=== PATIENT | female | born 1945 | race Asian ===

== ENCOUNTER 2017-07-13 15:19 | Inpatient (IN) | payer OTHER ==
[~2017-07-13] VITALS: Ht 154.9 cm; Wt 58.2 kg
[2017-07-13 17:38] LABS: BASOPHILS % 0.5 % (0.0-2.0); EOSINOPHILS # 0.2 10^3/ul (0.0-0.5); EOSINOPHILS % 2.2 % (0.0-7.0); HEMATOCRIT 41.2 % (37.0-47.0); HEMOGLOBIN 13.7 g/dl (12.0-16.0); LYMPHOCYTES # 3.8 10^3/ul (0.8-2.9); LYMPHOCYTES % 45.1 % (15.0-51.0); MEAN CORPUSCULAR HEMOGLOBIN 29.7 pg (29.0-33.0); MEAN CORPUSCULAR HGB CONC 33.3 g/dl (32.0-37.0); MEAN CORPUSCULAR VOLUME 89.4 fl (82.0-101.0); MEAN PLATELET VOLUME 9.8 fl (7.4-10.4); MONOCYTE # 0.6 10^3/ul (0.3-0.9); MONOCYTES % 6.7 % (0.0-11.0); NEUTROPHIL # 3.8 10^3/ul (1.6-7.5); NEUTROPHILS % 45.3 % (39.0-77.0); PLATELET COUNT 219 10^3/UL (140-415); RED BLOOD COUNT 4.61 10^6/ul (4.20-5.40); WHITE BLOOD COUNT 8.3 10^3/ul (4.8-10.8)
[2017-07-13 17:55] LABS: ANION GAP 12 (8-16); BLOOD UREA NITROGEN 7 mg/dl (7-20); CALCIUM 9.4 mg/dl (8.4-10.2); CARBON DIOXIDE 27 mmol/L (21-31); CHLORIDE 107 mmol/L (97-110); CREATININE 0.62 mg/dl (0.44-1.00); GLUCOSE 140 mg/dl (70-220); POTASSIUM 3.8 mmol/L (3.5-5.1); SODIUM 142 mmol/L (135-144)
[2017-07-13 18:04] LABS: B-TYPE NATRIURETIC PEPTIDE 78 PG/ML (0-125)
[2017-07-13] MEDS ORDERED: HYDR-902 PO (18:07)
[2017-07-13] MEDS ORDERED: LEVO50TA74 PO (18:07)
[2017-07-13 18:09] LABS: TROPONIN-I < 0.012 ng/ml (0.00-0.12)
[2017-07-13] MEDS ORDERED: ANAS1TAB PO (18:09)
[2017-07-13] MEDS ORDERED: DIPH1TAB25 PO (18:09)
[2017-07-13] MEDS ORDERED: IOHEXOL 300MG/ML 150 ML BTL ONE (18:10)
[2017-07-13] MEDS ORDERED: SOD CHLORIDE 0.9% 100 ML ONE (18:10)
--- NOTE | 2017-07-13 18:13 | RADRPT ---
PROCEDURE: XR Chest. CLINICAL INDICATION: Chest pain. TECHNIQUE: Portable AP semi - erect view of the chest was obtained. COMPARISON: None. FINDINGS: The cardiomediastinal silhouette is mildly enlarged . Blunting of the right greater than left costo phrenic angles are compatible with bilateral pleural effusions. Diffuse pulmonary vascular congesti on is concerning for congestive heart failure. Diffuse decreased mineralization cannot exclude oste openia or osteoporosis. Mild multilevel anterior spondylosis is present. Left axillary clips are pre sent. Calcification is visible within the aorta. RPTAT:HJJR IMPRESSION: 1. Combination of findings concerning for cardiac decompensation, congestive heart failure, with rig ht larger than left pleural effusions. 2. Aortic atherosclerosis is present. Physician Veto Date Time Electronically viewed and signed by Physician Veto on 07/13/2017 18:13 JR/
[2017-07-13 18:40] VITALS: TEMP 98.2
--- NOTE | 2017-07-13 20:03 | RADRPT ---
PROCEDURE: CT Chest with contrast. CLINICAL INDICATION: Increased exertional dyspnea, cancer. TECHNIQUE: A CT scan of the chest with contrast was performed. Coronal and sagittal reformatted im ages were obtained from the axial source images. 100 cc Omnipaque 300 were administered during exami nation without complication. CTDIvol: 7.93 mGy. DLP: 272.25 mGy-cm. One or more of the following dose reduction techniques were used: - Automated exposure control. - Adjustment of the mA and/or kV according to patient size. - Use of iterative reconstruction technique. COMPARISON: Chest x-ray dated 07/13/2017. FINDINGS: There is no suspicious thyroid lesion. There are a few mildly prominent anterior and middle mediasti nal lymph nodes. A partially calcified right paratracheal lymph node is also noted. The trachea and mainstem bronchi are patent. The heart is not enlarged. There is no pericardial effusion. The main pulmonary artery is mildly enlarged (3.4 cm). There are moderate right and small left pleural effusions. Patchy ground-glass opacification of the lungs is noted. There is smooth interlobular septal thickening in the lung apices and bases. There i s volume loss and patchy consolidation of the right lower lobe. Limited evaluation of the upper abdomen is unremarkable. There is no suspicious osseous lesion. IMPRESSION: 1. Moderate and small left pleural effusions. 2. Patchy ground-glass opacification of the lungs, possibly representing pulmonary edema, a viral c hest infection, or possibly pulmonary lymphoma. 3. Smooth interlobular septal thickening lung apices and bases, possibly representing pulmonary andree ma or lymphangitic spread of neoplasm. 4. Volume loss and consolidation in the right lower lobe, possibly representing atelectasis, pneumo vivien, and/or neoplasm. 5. A few mildly prominent anterior and middle mediastinal lymph nodes, nonspecific. 6. Mildly enlarged main pulmonary artery, raising the possibility of pulmonary hypertension. RPTAT: HTAR .Ras Jaffe MD, MD Date Time Electronically viewed and signed by .Ras Jaffe MD, on 07/13/2017 20:03 .R/
[2017-07-13] MEDS ORDERED: morphine 4 MG/ML VIAL IV STA (20:31)
[2017-07-13] MEDS: HYDROCODONE/APAP (7.5/325) TAB PO ONE ×2 (20:38→20:54)
[2017-07-13] MEDS ORDERED: ONDANSETRON 4 MG INJ IV PRN ×2 (21:00→22:30)
[2017-07-13] MEDS ORDERED: ACETAMINOPHEN 325 MG TAB PO PRN ×2 (21:00→22:30)
--- NOTE | 2017-07-13 21:33 | ERD ---
ER Documentation Chief Complaint Chief Complaint sob & R back/rib pain @ [facility] for 3 days 2 wks ago for thoracentesis HPI 71-year-old female presents with increasing exertional dyspnea to where she can only take a few steps without getting very short of breath as well as right back pain where she had a thoracentesis 2 weeks ago. She also has shortness of breath at rest but is not near as bad as when she tries to ambulate. She denies chest pain. She has a history of cancer. Seen in by her oncologist for possible acute worsening of her cancer requiring immediate chemotherapy. I called and spoke with the oncologist, Dr. Koch. She states that the patient' s progression of symptoms and the findings she had 2 weeks ago she believes that there may be lymph exogenous spread of cancer in the lungs in which case the patient would require immediate chemotherapy in order to stop the progression of the disease. She would like the patient admitted to the hospital and she would like to be on consult see the patient first thing in the morning ROS All systems reviewed and are negative except as per history of present illness. Medications Home Meds Reported Medications Anastrozole* (Arimidex*) 1 Mg Tablet, 1 MG PO DAILY, #30 TAB 07/13/17 Diphenoxylate HCl/Atropine (Diphenoxylate-Atrop 2.5-0.025) 1 Each Tablet, 1 EACH PO TID, TAB 07/13/17 Levothyroxine Sodium* (Levothyroxine Sodium*) 50 Mcg Tablet, 50 MCG PO BEFORE BREAKFAST, #30 TAB 07/13/17 Hydrocodone/Acetaminophen ([place] 10-325 Tablet) 1 Each Tablet, 1 EACH PO TID, TAB 07/13/17 Discontinued Reported Medications [None] No Conflict Check 07/24/12 Allergies Allergies: Coded Allergies: No Known Drug Allergies (Verified Allergy, Unknown, 07/13/17) PMhx/Soc History of Surgery: No Anesthesia Reaction: No Hx Neurological Disorder: No Hx Respiratory Disorders: No Hx Cardiac Disorders: No Hx Psychiatric Problems: No Hx Miscellaneous Medical Probl: No Hx Alcohol Use: No Hx Substance Use: No Hx Tobacco Use: No Smoking Status: Never smoker Physical Exam Vitals Vital Signs Date Time Temp Pulse Resp B/P Pulse Ox O2 Delivery O2 Flow Rate FiO2 07/13/17 18:40 98.2 73 21 127/94 95 Room Air 07/13/17 17:29 Nasal Cannula 2 07/13/17 15:21 98.2 80 20 156/72 94 Physical Exam Const: [] No distress, appears uncomfortable Head: Atraumatic Eyes: Normal Conjunctiva ENT: Normal External Ears, Nose and Mouth. Neck: Full range of motion..~ No meningismus. Resp: Decreased bibasilar breath sounds with markedly decreased breath sounds in the bottom right half of the lung. I hear no rales or wheezing. Cardio: Regular rate and rhythm, no murmurs Abd: Soft, non tender, non distended. Normal bowel sounds Skin: No petechiae or rashes Back: No midline tenderness, right flank tenderness diffusely. No surrounding erythema to possible puncture wound site from thoracentesis. Ext: No cyanosis, pulses intact all 4 extreme Neur: Awake and alert and oriented 3, no focal deficits Psych: Appears somewhat anxious. Result Diagram: 07/13/17 1728 07/13/17 1728 Results 24 hrs Laboratory Tests Test 07/13/17 17:28 White Blood Count 8.310^3/ul Red Blood Count 4.6110^6/ul Hemoglobin 13.7g/dl Hematocrit 41.2% Mean Corpuscular Volume 89.4fl Mean Corpuscular Hemoglobin 29.7pg Mean Corpuscular Hemoglobin Concent 33.3g/dl Red Cell Distribution Width 13.0% Platelet Count 31489^3/UL Mean Platelet Volume 9.8fl Neutrophils % 45.3% Lymphocytes % 45.1% Monocytes % 6.7% Eosinophils % 2.2% Basophils % 0.5% Nucleated Red Blood Cells % 0.0/100WBC Neutrophils # 3.810^3/ul Lymphocytes # 3.810^3/ul Monocytes # 0.610^3/ul Eosinophils # 0.210^3/ul Basophils # 0.010^3/ul Nucleated Red Blood Cells # 0.010^3/ul Sodium Level 142mmol/L Potassium Level 3.8mmol/L Chloride Level 107mmol/L Carbon Dioxide Level 27mmol/L Anion Gap 12 Blood Urea Nitrogen 7mg/dl Creatinine 0.62mg/dl Glucose Level 140mg/dl Calcium Level 9.4mg/dl Troponin I < 0.012ng/ml B-Type Natriuretic Peptide 78PG/ML Current Medications Medications (Trade) Dose Ordered Sig/Feroz Route PRN Reason Start Time Stop Time Status Last Admin Dose Admin IV Flush 10 ml 10 ml STK-MED ONCE .ROUTE 07/13/17 18:10 07/13/17 18:11 DC 07/13/17 18:44 Sodium Chloride (NS) 100 ml @ ud STK-MED ONCE .ROUTE 07/13/17 18:10 07/13/17 18:11 DC 07/13/17 18:44 Iohexol (Omnipaque 300mg/ ml) 150 ml STK-MED ONCE .ROUTE 07/13/17 18:10 07/13/17 18:11 DC 07/13/17 18:44 Morphine Sulfate (morphine) 4 mg ONCE STAT IV 07/13/17 20:31 07/13/17 20:32 DC 07/13/17 20:33 Acetaminophen/ Hydrocodone Bitart ([place] (7.5-325)) 1 tab ONCE ONCE PO 07/13/17 21:00 07/13/17 21:01 DC 07/13/17 20:54 Ondansetron HCl (Zofran Inj) 4 mg BRIDGE ORDER PRN IV NAUSEA AND/OR VOMITING 07/13/17 21:00 07/14/17 20:59 Acetaminophen (Tylenol Tab) 650 mg ER BRIDGE PRN PO MILD PAIN/FEVER 07/13/17 21:00 07/14/17 20:59 Procedures/MDM 71-year-old female with expanding cancer according to the patient's oncologist. Rapidly progressing dyspnea with CAT scan indicative of the type rapid lymphatitis and his cancer spread with Dr. Koch had mentioned. Patient does remain stable with vital signs currently. She will be admitted to prevent further respiratory compromise. I spoke with Dr. Hall who will be admitting the patient. Also given 4 mg of morphine and a [place] tab for her right back pain. No signs of acute infection. The consolidation of the right lower lobe seen in CT is pneumonia as the patient has no white count and spread of neoplasm is likely cause. Chest x-ray interpretation: Obscuration of right diaphragm partially with groundglass opacities in the right lower lung, no pneumothorax, no obvious infiltrate, no acute fractures. CT chest with contrast interpretation: Left-sided pleural effusion with groundglass opacities of both lungs as well as interlobar septal thickening in the apices and bases which is pulmonary edema versus neoplasm. Consolidation right lower lobe. EKG interpretation: Normal sinus rhythm rate of 71, normal axis, no ST or T- wave changes concerning for acute ischemia, normal intervals. Normal EKG Chronic monitor interpretation: Normal sinus rhythm without arrhythmia. Departure Diagnosis: Primary Impression: Lymphangitic lung metastasis Additional Impression: Acute dyspnea Condition: Serious FRANCESCA DOUGLASS DO Jul 13, 2017 21:32
[2017-07-13 22:32] VITALS: Ht 154.9 cm; Wt 58.2 kg
[2017-07-13 22:33] VITALS: BP 157/81; PULSE 67; RESP 18
[2017-07-13] MEDS: morphine 2 MG INJ IV PRN (23:31)
[2017-07-13 23:48] VITALS: BP 124/59; RESP 22
[2017-07-14] MEDS: morphine 2 MG INJ IV PRN ×4 (04:58→20:25)
[2017-07-14] MEDS: LEVOTHYROXINE 50 MCG TAB PO SCH (06:39)
[2017-07-14 07:45] VITALS: BP 115/60; PULSE 64; RESP 22
[2017-07-14] MEDS: ANASTROZOLE 1 MG TAB PO SCH (10:26)
[2017-07-14 12:04] VITALS: BP 135/69; PULSE 63; RESP 20
--- NOTE | 2017-07-14 15:40 | HP ---
Date/Time of Note Date/Time of Note DATE: 07/14/17 TIME: 15:14 Assessment/Plan VTE Prophylaxis VTE Prophylaxis Intervention: SCD's Lines/Catheters IV Catheter Type (from [facility]): Saline Lock Assessment/Plan Assessment/Plan 71-year-old female with 1. Recurrent respiratory distress secondary to recurrent right pleural effusion , likely malignant, pleural fluid from a previous thoracentesis 3 weeks ago [facility] did show large amount of RBCs, cytology hopefully pending OR completed, we are asking for records. Continue supportive care, supplemental oxygen 2 L nasal cannula. Follow-up recommendation from Dr. Blanchard, this is likely malignant effusion, therefore we may not do another thoracentesis unless significant respiratory distress. According to patient's daughter at the bedside, Dr. Blanchard told her that she will not initiate chemotherapy inpatient. 2. Hypothyroidism: Check thyroid function testing, continue Synthroid 3. Previously diagnosed breast cancer, status post left lumpectomy 3 years ago followed by radiation therapy, patient was supposed to be on hormonal therapy with Arimidex but apparently she was not compliant Prophylaxis: SCDs for DVT prophylaxis, Pepcid for GI prophylaxis Disposition: May need thoracentesis of the right pleural effusion in a.m., Dr. Blanchard from oncology to see patient regarding further plan of care including possible inpatient initiation of chemotherapy. HPI/ROS Admit Date/Time Admit Date/Time Jul 13, 2017 at 20:34 Hx of Present Illness Chief complaint: Shortness of breath History of presenting illness: This is a 71-year-old female with history of hypothyroidism, breast cancer diagnosed 3 years ago status post left lumpectomy with subsequent radiation therapy and was supposed to be on hormonal therapy but was not compliant with her hormonal therapy. She was recently at [facility] for 3 days where she was admitted for shortness of breath and found to have a right pleural effusion which was drained and labs sent along hopefully with cytology, she was sent home and over the past 3 weeks she has been having increasing shortness of breath with episode of severe respiratory distress yesterday therefore family brought her to the emergency department. Patient is under the care of Dr. Blanchard, oncology, apparently she has seen her over the past 3 weeks and she started workup to start her on chemotherapy likely for malignant breast cancer. I am trying to obtain cytology from the pleural fluid drained [address] [facility] Blanchard will be seeing the patient here. She is currently on 2 L nasal cannula and stable, she reports some pleuritic right sided lower chest pain and also right upper quadrant abdominal pain. She denies any fevers, chills, nausea, vomiting. She reports loose stools, fatigue over the past month, 10 pound weight loss over the past 3 weeks, decreased appetite over the past month. Chest x-ray and CT of the chest here is showing a small left pleural effusion and a moderate right pleural effusion. She may need right thoracentesis in a.m. For now she stable on 2 L nasal cannula. Further plan of care will be discussed with Dr. Blanchard. ROS Constitutional: fatigue, weight change (10 pounds over 3 weeks) Eyes: no complaints ENT: no complaints Respiratory: pleuritic pain, shortness of breath Cardiovascular: no complaints Gastrointestinal: no complaints Genitourinary: other (Loose stools) Musculoskeletal: no complaints Skin: no complaints Neurologic: no complaints Endocrine: no complaints Lymphatic: no complaints Psychological: no complaints Immunologic: no complaints PMH/Family/Social Past Medical History Breast cancer, unknown stage, diagnosed 3 years ago, status post radiation therapy and was supposed to be on hormonal therapy but noncompliant Hyperlipidemia Past Surgical History Status post left lumpectomy 3 years ago Family History Significant Family History: no pertinent family hx Social History Alcohol Use: none Smoking Status: Former smoker (Quit 30 years ago) Drug Use: none Exam/Review of Systems Vital Signs Vitals Vital Signs Date Time Temp Pulse Resp B/P Pulse Ox O2 Delivery O2 Flow Rate FiO2 07/14/17 12:04 98.3 63 20 135/69 96 Nasal Cannula 2.0 Intake and Output 07/13/17 07/13/17 07/14/17 15:00 23:00 07:00 Intake Total 850 ml Output Total 800 ml Balance 50 ml Exam Constitutional: alert, frail, oriented, other (Thin) Psych: no complaints Head: normocephalic Eyes: EOMI, nl conjunctiva, nl lids Neck: non-tender, supple Respiratory: diminished breath sounds (Right lower chest> left base), normal air movement Cardiovascular: nl pulses, regular rate and rhythm Gastrointestinal: non-tender, soft Musculoskeletal: nl extremities to inspection Extremities: normal pulses, other (No edema, clubbing or cyanosis) Neurological: [employer] II-XII intact, nl mental status, nl speech, other ( Generalized weakness) Labs Result Diagram: 07/13/17 1728 07/13/17 1728 Medications Medications Current Medications Acetaminophen (Tylenol Tab) 650 mg Q4H PRN PO PAIN AND OR ELEVATED TEMP; Start 07/13/17 at 22:30 Ondansetron HCl (Zofran Inj) 4 mg Q4H PRN IV NAUSEA AND/OR VOMITING; Start at 22:30 Morphine Sulfate (morphine) 2 mg Q4H PRN IV PAIN Last administered on 11:28; Admin Dose 2 MG; Start 07/13/17 at 22:30 Hydralazine HCl (Apresoline) 25 mg Q6H PRN PO ELEVATED SYSTOLIC BP Last administered on 07/13/17 22:28; Admin Dose 25 MG; Start 07/13/17 at 22:30 Anastrozole (Arimidex) 1 mg DAILY PO Last administered on 07/14/17 10:26; Admin Dose 1 MG; Start 07/14/17 at 09:00 Procedures Procedures PROCEDURE: CT Chest with contrast. CLINICAL INDICATION: Increased exertional dyspnea, cancer. TECHNIQUE: A CT scan of the chest with contrast was performed. Coronal and sagittal reformatted images were obtained from the axial source images. 100 cc Omnipaque 300 were administered during examination without complication. CTDIvol: 7.93 mGy. DLP: 272.25 mGy-cm. One or more of the following dose reduction techniques were used: - Automated exposure control. - Adjustment of the mA and/or kV according to patient size. - Use of iterative reconstruction technique. COMPARISON: Chest x-ray dated 07/13/2017. FINDINGS: There is no suspicious thyroid lesion. There are a few mildly prominent anterior and middle mediastinal lymph nodes. A partially calcified right paratracheal lymph node is also noted. The trachea and mainstem bronchi are patent. The heart is not enlarged. There is no pericardial effusion. The main pulmonary artery is mildly enlarged (3.4 cm). There are moderate right and small left pleural effusions. Patchy ground-glass opacification of the lungs is noted. There is smooth interlobular septal thickening in the lung apices and bases. There is volume loss and patchy consolidation of the right lower lobe. Limited evaluation of the upper abdomen is unremarkable. There is no suspicious osseous lesion. IMPRESSION: 1. Moderate and small left pleural effusions. 2. Patchy ground-glass opacification of the lungs, possibly representing pulmonary edema, a viral chest infection, or possibly pulmonary lymphoma. 3. Smooth interlobular septal thickening lung apices and bases, possibly representing pulmonary edema or lymphangitic spread of neoplasm. 4. Volume loss and consolidation in the right lower lobe, possibly representing atelectasis, pneumonia, and/or neoplasm. 5. A few mildly prominent anterior and middle mediastinal lymph nodes, nonspecific. 6. Mildly enlarged main pulmonary artery, raising the possibility of pulmonary hypertension. RPTAT: HTAR PROCEDURE: XR Chest. CLINICAL INDICATION: Chest pain. TECHNIQUE: Portable AP semi - erect view of the chest was obtained. COMPARISON: None. FINDINGS: The cardiomediastinal silhouette is mildly enlarged . Blunting of the right greater than left costophrenic angles are compatible with bilateral pleural effusions. Diffuse pulmonary vascular congestion is concerning for congestive heart failure. Diffuse decreased mineralization cannot exclude osteopenia or osteoporosis. Mild multilevel anterior spondylosis is present. Left axillary clips are present. Calcification is visible within the aorta. RPTAT:HJJR IMPRESSION: 1. Combination of findings concerning for cardiac decompensation, congestive heart failure, with right larger than left pleural effusions. 2. Aortic atherosclerosis is present. Physician Veto Date Time Electronically viewed and signed by Physician Veto on 07/13/2017 18:13 SHANNAN FERRER Jul 14, 2017 15:24
[2017-07-14] MEDS: FAMOTIDINE 20 MG TAB PO SCH (16:57)
--- NOTE | 2017-07-14 18:25 | CONS ---
Date/Time of Note Date/Time of Note DATE: 07/14/17 TIME: 18:23 Assessment/Plan Assessment/Plan Chief Complaint/Hosp Course metastatic breast cancer with lung metastatic disease and with lymphogenic spread , and malignant pleural effusion. Left breast infiltrat ductal carcinoma diagnosed 3 years ago, ER+/WV+/HER2+, received neoadju status post left lumpectomy with subsequent radiation therapy and was supposed to be on hormonal therapy but was not compliant with her hormonal therapy. She discontinued arimidex after 1 week. resumed arimidex around 06/26/17. Pleural effusion, Cytology on 06/22/17 showed malignant carcinoma, ER-/WV- Recurrent respiratory distress secondary metastatic breast cancer with lung metastatic disease and with lymphogenic spread , and malignant pleural effusion Hypothyroidism Plans: thoracentesis for diagnostic and therapeutic purpose due to symptomatic Discussed with radiologist Dr. Almeida on the phone regarding the CT report: Metastatic disease appearance in the lung with lymphogenic spread. Due to recurrent respiratory distress and lymphogenic spread of the tumor, will start chemotherapy CHARLES Veqp-[id number] placement Antiemetics prn Decadron 4mg bid x 3 days WIll start Paclitaxel 175 mg/m2 IV q 21 days x1 in house Will start herceptin and Pertuzumab outpatient. continue arimidex Long discussion with patient and daughter, medical condition and plans were discussed. Would like to proceed with chemotherapy. other management per PMD Time spent with patient > 70' Problems: Consultation Date/Type/Reason Admit Date/Time Jul 13, 2017 at 20:34 Date of Consultation: Jul 14, 2017 Type of Consultation: Hematology and oncology Reason for Consultation metastatic breast cancer with lung metastatic disease with lymphogenic spread and malignant pleural effusion. Referring Provider: CHRISTI GARLAND MD Hx of Present Illness 71-year-old female with history of hypothyroidism, Left breast infiltrate ductal carcinoma diagnosed 3 years ago, ER+/WV+/HER2+, received neoadjuvant chemotherapy, status post left lumpectomy with subsequent radiation therapy and was supposed to be on hormonal therapy but was not compliant with her hormonal therapy. She discontinued arimidex after 1 week. She was recently at [facility] for 3 days on 06/22/[address] showed large pleural effusion. Pleural effusion cytology showed malignant carnicoma. Was started on Arimidex. Was planned to start outpatient chemotherapy with Herpetin+pertuzumab+ paclitaxel. But complained SOB. chest xray on 07/10/17 showed possible lymphgentic spread of the tumor. 07/13/17, SOB was worsening. Patient was sent to ER. 07/13/17 chest xray: Combination of findings concerning for cardiac decompensation, congestive heart failure, with right larger than left pleural effusions 07/13/17 CT Chest: 1. Moderate and small left pleural effusions. 2. Patchy ground-glass opacification of the lungs, possibly representing pulmonary edema, a viral chest infection, or possibly pulmonary lymphoma. 3. Smooth interlobular septal thickening lung apices and bases, possibly representing pulmonary edema or lymphangitic spread of neoplasm. 4. Volume loss and consolidation in the right lower lobe, possibly representing atelectasis, pneumonia, and/or neoplasm. 5. A few mildly prominent anterior and middle mediastinal lymph nodes, nonspecific. 6. Mildly enlarged main pulmonary artery, raising the possibility of pulmonary hypertension. Hematology and oncology consult for metastatic breast cancer with lung metastatic disease and with lymphogenic spread , and malignant pleural effusion. Eyes: no complaints ENT: no complaints Respiratory: pleuritic pain, shortness of breath Cardiovascular: no complaints Gastrointestinal: no complaints Genitourinary: other (Loose stools) Musculoskeletal: no complaints Skin: no complaints Neurologic: no complaints Lymphatic: no complaints Psychological: no complaints Immunologic: no complaints Past Medical History hypothyroidism , metastatic breast CA Past Surgical History lumpectomy Social History Alcohol Use: none Smoking Status: Former smoker (Quit 30 years ago) Drug Use: none Exam/Review of Systems Vital Signs Vitals Vital Signs Date Time Temp Pulse Resp B/P Pulse Ox O2 Delivery O2 Flow Rate FiO2 07/14/17 12:04 98.3 63 20 135/69 96 Nasal Cannula 2.0 Intake and Output 07/13/17 07/13/17 07/14/17 15:00 23:00 07:00 Intake Total 850 ml Output Total 800 ml Balance 50 ml Exam Constitutional: No alert, No distress, No frail, No non-verbal, No obese, No oriented, No other, No well developed Psych: No anxiety, No confusion, No depression, No nl mood/affect, No no complaints, No other, No suicidal Head: No atraumatic, No hematomas, No lacerations, No normocephalic, No other Eyes: No EOMI, No PERRL, No fundi, disc, No icteric, No nl conjunctiva, No nl lids, No nl sclera, No other ENMT: No intubated, No mucosa pink and moist, No nl external ears & nose, No nl lips & teeth, No nl nasal mucosa & septum, No other, No tympanic membranes Neck: No bruits, No jvd, No masses, No non-tender, No nuchal rigidity, No other , No supple, No thyromegaly Respiratory: diminished breath sounds Cardiovascular: No S3, No S4, No bruits, No diastolic murmur, No edema, No gallop, No irregular rhythm, No jugular venous distention (JVD), No murmurs/ extra sounds, No nl pulses, No other, No regular rate and rhythm, No rub, No systolic murmur Gastrointestinal: No ascites, No bowel sounds, No distended, No firm, No hepatomegaly, No mass, No nl liver, spleen, No non-tender, No other, No rebound or guarding, No soft, No splenomegaly, No surgical scars, No tender Genitourinary - Female: No CMT, No CVA tenderness, No nl adnexae, No nl external genitalia, No other, No uterus Musculoskeletal: No joint tenderness, No muscle tone, No muscle weakness, No nl extremities to inspection, No nl gait and stance, No other, No range of motion, No spine non-tender, No swelling Extremities: No calf tenderness, No clubbing, No cyanosis, No edema, No normal pulses, No other, No palpable cord, No pitting pedal edema, No tenderness Neurological: No GUTTER INSTALLER II-XII intact, No DTR's symmetric, No confused, No focal weakness, No lethargic, No nl mental status, No nl speech, No nl strength, No numbness, No other, No reflexes, No unresponsive Results Result Diagram: 07/13/17 1728 07/13/17 1728 Medications Medications Current Medications Acetaminophen (Tylenol Tab) 650 mg Q4H PRN PO PAIN AND OR ELEVATED TEMP; Start 07/13/17 at 22:30 Ondansetron HCl (Zofran Inj) 4 mg Q4H PRN IV NAUSEA AND/OR VOMITING; Start at 22:30 Morphine Sulfate (morphine) 2 mg Q4H PRN IV PAIN Last administered on t 16:15; Admin Dose 2 MG; Start 07/13/17 at 22:30 Hydralazine HCl (Apresoline) 25 mg Q6H PRN PO ELEVATED SYSTOLIC BP Last administered on 07/13/17 22:28; Admin Dose 25 MG; Start 07/13/17 at 22:30 Anastrozole (Arimidex) 1 mg DAILY PO Last administered on 07/14/17 10:26; Admin Dose 1 MG; Start 07/14/17 at 09:00 Famotidine (Pepcid) 20 mg DAILY PO Last administered on 07/14/17 16:57; Admin Dose 20 MG; Start 07/14/17 at 16:00 SELMA FERNANDEZ MD Jul 14, 2017 18:25
[2017-07-14] MEDS ORDERED: LORAZEPAM 1 MG TAB PO PRN (19:00)
[2017-07-14] MEDS ORDERED: PROCHLORPERAZINE 10 MG TAB NGT PRN (19:00)
[2017-07-14] MEDS ORDERED: ONDANSETRON INJ 8 MG in DEXTROSE 5% 50 ML IV PRN (19:00)
[2017-07-14 20:00] VITALS: BP 122/63; RESP 20
[2017-07-14] MEDS: DEXAMETHASONE 4 MG TAB PO SCH (20:26)
[2017-07-14] MEDS ORDERED: D5W-0.45 NACL + KCL 20 MEQ 1,000 ML IV SCH (23:30)
[2017-07-14] MEDS: D5W-0.45 NACL + KCL 20 MEQ 1,000 ML IV SCH (23:40)
[2017-07-15 02:24] VITALS: BP 128/67; RESP 19
[2017-07-15 05:19] LABS: BASOPHILS % 0.2 % (0.0-2.0); HEMATOCRIT 42.1 % (37.0-47.0); HEMOGLOBIN 13.9 g/dl (12.0-16.0); LYMPHOCYTES # 1.6 10^3/ul (0.8-2.9); LYMPHOCYTES % 32.1 % (15.0-51.0); MEAN CORPUSCULAR HEMOGLOBIN 29.3 pg (29.0-33.0); MEAN CORPUSCULAR VOLUME 88.8 fl (82.0-101.0); MEAN PLATELET VOLUME 10.2 fl (7.4-10.4); MONOCYTE # 0.1 10^3/ul (0.3-0.9); MONOCYTES % 1.6 % (0.0-11.0); NEUTROPHIL # 3.3 10^3/ul (1.6-7.5); NEUTROPHILS % 65.7 % (39.0-77.0); PLATELET COUNT 214 10^3/UL (140-415); RED BLOOD COUNT 4.74 10^6/ul (4.20-5.40); RED CELL DISTRIBUTION WIDTH 12.9 % (11.5-14.5)
[2017-07-15 05:41] LABS: INR 1.21; PROTIME 15.4 Sec (12.2-14.2); PT RATIO 1.2
[2017-07-15 05:42] LABS: PARTIAL THROMBOPLASTIN TIME 36.3 Sec (25.0-35.0)
[2017-07-15 05:53] LABS: ALBUMIN 3.5 g/dl (3.3-4.9); ALBUMIN/GLOBULIN RATIO 0.68; BILIRUBIN,INDIRECT 0.4 mg/dl (0-1.1); BILIRUBIN,TOTAL 0.4 mg/dl (0.2-1.3); CALCIUM 9.4 mg/dl (8.4-10.2); CREATININE 0.55 mg/dl (0.44-1.00); POTASSIUM 4.2 mmol/L (3.5-5.1); TOTAL PROTEIN 8.6 g/dl (6.1-8.1)
[2017-07-15 06:01] LABS: MAGNESIUM 2.1 mg/dl (1.7-2.5); PHOSPHORUS 2.7 mg/dl (2.5-4.9)
[2017-07-15 06:28] LABS: THYROID STIMULATING HORMONE 0.691 MIU/L (0.465-4.680)
[2017-07-15] MEDS: LEVOTHYROXINE 50 MCG TAB PO SCH (07:23)
[2017-07-15 07:45] VITALS: BP 124/85; RESP 20
[2017-07-15] MEDS ORDERED: LIDOCAINE 1% (MPF) 5 ML VIAL SC ONE (08:00)
[2017-07-15] MEDS: FAMOTIDINE 20 MG TAB PO SCH (08:18)
[2017-07-15] MEDS: DEXAMETHASONE 4 MG TAB PO SCH ×2 (08:19→21:02)
[2017-07-15] MEDS: ANASTROZOLE 1 MG TAB PO SCH (08:22)
[2017-07-15 08:24] VITALS: BP 153/67; RESP 18
[2017-07-15] MEDS: D5W-0.45 NACL + KCL 20 MEQ 1,000 ML IV SCH (12:53)
--- NOTE | 2017-07-15 13:09 | PN ---
Date/Time of Note Date/Time of Note DATE: 07/15/17 TIME: 13:05 Assessment/Plan VTE Prophylaxis VTE Prophylaxis Intervention: SCD's Lines/Catheters IV Catheter Type (from [facility]): Peripheral IV Assessment/Plan Assessment/Plan [facility] 1. 71-year-old woman admitted night before last with recurrent respiratory distress secondary to bilateral pleural effusion. Per Dr. Helene Blanchard, she has metastatic breast cancer with metastatic disease and lymphangitic spread int he lungs. Her primary was a left breast infiltrating ductal carcinoma diagnosed in 2013 that was ER+/[place]+/HER2+. She received chemotherapy and radiation following lumpectomy. Cytology from a drained pleural effusion on 06/22/17 showed malignant carcinoma cells that were ER-/[place]-. * Plan ultrasound-guided thoracentesis (ordered). Exam suggests more fluid on the left. * Encourage ambulation and deep breathing. * Port-a-cath placement to begin chemotherapy: Paclitaxel 175 mg/m2 IV now, to be repeated in three weeks. Also anticipating starting her on herceptin and Pertuzumab as an outpatient. * Continue hormonal therapy with arimidex, restarted three weeks ago. * Zofran as needed for nausea * Per Dr. Blanchard, will give Decadron 4mg q12h x three days. 2. Hypothyroidism. Her TSH was normal at 0.691. * Continue Synthroid 3. Prophylaxis * SCDs for DVT prophylaxis * Pepcid for GI prophylaxis 4. Disposition. * Full-code * Planning for home oxygen * Planning for home nursing following initiation of chemotherapy this weekend. Xochitl Vicente MD PhD [phone] Subjective 24 Hr Interval Summary Free Text/Dictation Feeling generally well, complaining only of mild right flank pain. Moderately short of breath if she goes off her oxygen. Mild dry cough with deep breathing. She has a good appetite. Two loose stools in the last 24-hours. Her daughter Waleska was at the bedside. Exam/Review of Systems Vital Signs Vitals Vital Signs Date Time Temp Pulse Resp B/P Pulse Ox O2 Delivery O2 Flow Rate FiO2 07/15/17 08:30 Nasal Cannula 2.0 07/15/17 08:24 97.4 76 18 153/67 94 Intake and Output 07/14/17 07/14/17 07/15/17 15:00 23:00 07:00 Intake Total 1180 ml 750 ml Output Total 800 ml Balance 1180 ml -50 ml Exam Constitutional: alert, serious, breathing comfortably on 2L/min nasal cannula Head: Normal pupils, no jaundice. Moist oral mucosa. Respiratory: diminished breath sounds at both bases, with severe crackles at left base to group home up and trace crackles on the right. Good air movement Cardiovascular: Symmetric pulses, regular rhythm, normal rate. Gastrointestinal: non-tender, soft, bowel sounds positive. Musculoskeletal: nl extremities to inspection, with good movement of hips, knees and ankles. Warm extremities to touch. No edema, clubbing or cyanosis. Neurological: POLICE LIAISON II-XII intact, nl mental status, nl speech, motor 5/5 with downgoing toes. Results Result Diagram: 07/15/1744407/15/17444 Results 24 hrs Laboratory Tests Test 07/15/17 04:45 White Blood Count 5.0 # Red Blood Count 4.74 Hemoglobin 13.9 Hematocrit 42.1 Mean Corpuscular Volume 88.8 Mean Corpuscular Hemoglobin 29.3 Mean Corpuscular Hemoglobin Concent 33.0 Red Cell Distribution Width 12.9 Platelet Count 214 Mean Platelet Volume 10.2 Neutrophils % 65.7 Lymphocytes % 32.1 Monocytes % 1.6 Eosinophils % 0.0 Basophils % 0.2 Nucleated Red Blood Cells % 0.0 Neutrophils # 3.3 Lymphocytes # 1.6 Monocytes # 0.1 L Eosinophils # 0.0 Basophils # 0.0 Nucleated Red Blood Cells # 0.0 Prothrombin Time 15.4 H Prothrombin Time Ratio 1.2 INR International Normalized Ratio 1.21 Activated Partial Thromboplast Time 36.3 H Sodium Level 138 Potassium Level 4.2 Chloride Level 106 Carbon Dioxide Level 25 Anion Gap 11 Blood Urea Nitrogen 6 L Creatinine 0.55 Glucose Level 304 #H Calcium Level 9.4 Phosphorus Level 2.7 Magnesium Level 2.1 Total Bilirubin 0.4 Direct Bilirubin 0.00 Indirect Bilirubin 0.4 Aspartate Amino Transf (AST/SGOT) 67 H Alanine Aminotransferase (ALT/SGPT) 32 Alkaline Phosphatase 87 Total Protein 8.6 H Albumin 3.5 Globulin 5.10 H Albumin/Globulin Ratio 0.68 Thyroid Stimulating Hormone (TSH) 0.691 Free Thyroxine 1.72 Medications Medications Current Medications Acetaminophen (Tylenol Tab) 650 mg Q4H PRN PO PAIN AND OR ELEVATED TEMP; Start 07/13/17 at 22:30 Ondansetron HCl (Zofran Inj) 4 mg Q4H PRN IV NAUSEA AND/OR VOMITING; Start at 22:30 Morphine Sulfate (morphine) 2 mg Q4H PRN IV PAIN Last administered on 20:25; Admin Dose 2 MG; Start 07/13/17 at 22:30 Hydralazine HCl (Apresoline) 25 mg Q6H PRN PO ELEVATED SYSTOLIC BP Last administered on 07/13/17 22:28; Admin Dose 25 MG; Start 07/13/17 at 22:30 Anastrozole (Arimidex) 1 mg DAILY PO Last administered on 07/15/17 08:22; Admin Dose 1 MG; Start 07/14/17 at 09:00 Famotidine 20 mg 20 mg DAILY PO Last administered on 07/15/17 08:18; Admin Dose 20 MG; Start 07/14/17 at 16:00 Ondansetron HCl/ Dextrose (Zofran Inj/D5W) 54 ml @ 108 mls/hr Q8 PRN IV NAUSEA AND/OR VOMITING; Start 07/14/17 at 19:00 Prochlorperazine (Compazine) 10 mg Q6H PRN NGT NAUSEA AND/OR VOMITING; Start 07/14/17 at 19:00 Lorazepam (Ativan) 0.5 mg Q12 PRN PO NAUSEA; Start 07/14/17 at 19:00 Dexamethasone 4 mg 4 mg BID PO Last administered on 07/15/17 08:19; Admin Dose 4 MG; Start 07/14/17 at 21:00; Stop 07/16/17 at 20:59 Potassium Chloride/Dextrose/ Sod Cl (D5-1/2ns + KCl 20 Meq) 1,000 ml @ 75 mls/ hr [id number] IV Last administered on 07/15/17 12:53; Admin Dose 75 MLS/HR; Start 07/14/17 at 23:30 MONSE VICENTE M.D. Jul 15, 2017 13:09 INR International Normalized Ratio 1.21 Activated Partial Thromboplast Time 36.3 H Sodium Level 138 Potassium Level 4.2 Chloride Level 106 Carbon Dioxide Level 25 Anion Gap 11 Blood Urea Nitrogen 6 L Creatinine 0.55 Glucose Level 304 #H Calcium Level 9.4 Phosphorus Level 2.7 Magnesium Level 2.1 Total Bilirubin 0.4 Direct Bilirubin 0.00 Indirect Bilirubin 0.4 Aspartate Amino Transf (AST/SGOT) 67 H Alanine Aminotransferase (ALT/SGPT) 32 Alkaline Phosphatase 87 Total Protein 8.6 H Albumin 3.5 Globulin 5.10 H Albumin/Globulin Ratio 0.68 Thyroid Stimulating Hormone (TSH) 0.691 Free Thyroxine 1.72 Medications Medications Current Medications Acetaminophen (Tylenol Tab) 650 mg Q4H PRN PO PAIN AND OR ELEVATED TEMP; Start 07/13/17 at 22:30 Ondansetron HCl (Zofran Inj) 4 mg Q4H PRN IV NAUSEA AND/OR VOMITING; Start at 22:30 Morphine Sulfate (morphine) 2 mg Q4H PRN IV PAIN Last administered on 20:25; Admin Dose 2 MG; Start 07/13/17 at 22:30 Hydralazine HCl (Apresoline) 25 mg Q6H PRN PO ELEVATED SYSTOLIC BP Last administered on 07/13/17 22:28; Admin Dose 25 MG; Start 07/13/17 at 22:30 Anastrozole (Arimidex) 1 mg DAILY PO Last administered on 07/15/17 08:22; Admin Dose 1 MG; Start 07/14/17 at 09:00 Famotidine 20 mg 20 mg DAILY PO Last administered on 07/15/17 08:18; Admin Dose 20 MG; Start 07/14/17 at 16:00 Ondansetron HCl/ Dextrose (Zofran Inj/D5W) 54 ml @ 108 mls/hr Q8 PRN IV NAUSEA AND/OR VOMITING; Start 07/14/17 at 19:00 Prochlorperazine (Compazine) 10 mg Q6H PRN NGT NAUSEA AND/OR VOMITING; Start 07/14/17 at 19:00 Lorazepam (Ativan) 0.5 mg Q12 PRN PO NAUSEA; Start 07/14/17 at 19:00 Dexamethasone 4 mg 4 mg BID PO Last administered on 07/15/17 08:19; Admin Dose 4 MG; Start 07/14/17 at 21:00; Stop 07/16/17 at 20:59 Potassium Chloride/Dextrose/ Sod Cl (D5-1/2ns + KCl 20 Meq) 1,000 ml @ 75 mls/ hr [id number] IV Last administered on 07/15/17t 12:53; Admin Dose 75 MLS/HR; Start 07/14/17 at 23:30 MONSE VICENTE M.D. Jul 15, 2017 13:09
[2017-07-15] MEDS ORDERED: LIDOCAINE 1% (MPF) 5 ML VIAL ONE (14:02)
--- NOTE | 2017-07-15 14:38 | RADRPT ---
PROCEDURE: Ultrasound guidance for placement of needle in right upper extremity vein. CLINICAL INDICATION: Venous access. TECHNIQUE: Limited sonography of the right upper extremity was performed. Ultrasound images were recorded and stored in the patient's medical record. COMPARISON: None. FINDINGS: The ultrasound images demonstrate a patent right upper extremity vein. The PICC line was inserted b y the PICC line nurse. IMPRESSION: 1. Ultrasound guidance for a needle placement in a right upper extremity vein. 2. The visualized right upper extremity vein is patent. RPTAT: QQ .Darren Almeida MD, MD Date Time Electronically viewed and signed by .Darren Almeida MD, on 07/15/2017 14:38 .R/
[2017-07-15] MEDS: morphine 2 MG INJ IV PRN ×2 (14:42→19:20)
--- NOTE | 2017-07-15 14:49 | RADRPT ---
PROCEDURE: XR Chest. CLINICAL INDICATION: Shortness of breath. Post right thoracentesis. TECHNIQUE: Single frontal view. COMPARISON: 07/15/2017. 1235 hours. FINDINGS: There is mild interstitial disease bilaterally in the mid and lower lung zones consistent with pulmo nary edema. There is improved aeration of the right lung following the right thoracentesis. The lung s are otherwise clear. The heart size is normal. There is calcification in the aorta consistent with atherosclerosis. Surg ical clips are present in the left axilla. There are small bilateral pleural effusions. There is a very small right pneumothorax measuring approximately 5%. There is no left pneumothorax. IMPRESSION: 1. Mild pulmonary edema. 2. Improved aeration of the right lung. 3. Atherosclerosis. 4. Prior left axillary surgery. 5. Small bilateral pleural effusions. 6. Very small right pneumothorax measuring approximately 5%. Follow-up chest x-ray and clinical cor relation advised. RPTAT: QQ .Darren Almeida MD, MD Date Time Electronically viewed and signed by .Darren Almeida MD, on 07/15/2017 14:49 .R/
--- NOTE | 2017-07-15 15:09 | CONS ---
Date/Time of Note Date/Time of Note DATE: 07/15/17 TIME: 15:06 Assessment/Plan Assessment/Plan Chief Complaint/Hosp Course metastatic breast cancer with lung metastatic disease and with lymphogenic spread , and malignant pleural effusion. Left breast infiltrat ductal carcinoma diagnosed 3 years ago, ER+/CA+/HER2+, received neoadju status post left lumpectomy with subsequent radiation therapy and was supposed to be on hormonal therapy but was not compliant with her hormonal therapy. She discontinued arimidex after 1 week. resumed arimidex around 06/26/17. Pleural effusion, Cytology on 06/22/17 showed malignant carcinoma, ER-/CA- Recurrent respiratory distress secondary metastatic breast cancer with lung metastatic disease and with lymphogenic spread , and malignant pleural effusion Hypothyroidism Plans: thoracentesis for diagnostic and therapeutic purpose due to symptomatic was done today. follow up cytology result. PICC line was placed today Due to recurrent respiratory distress and lymphogenic spread of the tumor, will start chemotherapy CHARLES today. Pirx-[id number] placement once schedule is available. continue Antiemetics prn continue Decadron 4mg bid x 3 days, start the day prior chemotherapy yesterday WIll start Paclitaxel 175 mg/m2 IV q 21 days x1 today Will start herceptin and Pertuzumab outpatient. continue arimidex Long discussion with patient and daughter again, medical condition and plans were discussed. Would like to proceed with chemotherapy. other management per PMD Time spent with patient > 35' Problems: Consultation Date/Type/Reason Admit Date/Time Jul 13, 2017 at 20:34 Initial Consult Date 07/14/17 Type of Consultation: Hematology and oncology Reason for Consultation Metastatic breast cancer. SOB Referring Provider: CHRISTI GARLAND MD Exam/Review of Systems Vital Signs Vitals Vital Signs Date Time Temp Pulse Resp B/P Pulse Ox O2 Delivery O2 Flow Rate FiO2 07/15/17 08:30 Nasal Cannula 2.0 07/15/17 08:24 97.4 76 18 153/67 94 Intake and Output 07/14/17 07/14/17 07/15/17 15:00 23:00 07:00 Intake Total 1180 ml 750 ml Output Total 800 ml Balance 1180 ml -50 ml Exam Constitutional: No alert, No distress, No frail, No non-verbal, No obese, No oriented, No other, No well developed Psych: No anxiety, No confusion, No depression, No nl mood/affect, No no complaints, No other, No suicidal Head: No atraumatic, No hematomas, No lacerations, No normocephalic, No other Eyes: No EOMI, No PERRL, No fundi, disc, No icteric, No nl conjunctiva, No nl lids, No nl sclera, No other ENMT: No intubated, No mucosa pink and moist, No nl external ears & nose, No nl lips & teeth, No nl nasal mucosa & septum, No other, No tympanic membranes Neck: No bruits, No jvd, No masses, No non-tender, No nuchal rigidity, No other , No supple, No thyromegaly Respiratory: diminished breath sounds Cardiovascular: No S3, No S4, No bruits, No diastolic murmur, No edema, No gallop, No irregular rhythm, No jugular venous distention (JVD), No murmurs/ extra sounds, No nl pulses, No other, No regular rate and rhythm, No rub, No systolic murmur Gastrointestinal: No ascites, No bowel sounds, No distended, No firm, No hepatomegaly, No mass, No nl liver, spleen, No non-tender, No other, No rebound or guarding, No soft, No splenomegaly, No surgical scars, No tender Extremities: No calf tenderness, No clubbing, No cyanosis, No edema, No normal pulses, No other, No palpable cord, No pitting pedal edema, No tenderness Results Result Diagram: 07/15/17 0445 07/15/17444 Results 24 hrs Laboratory Tests Test 07/15/17 04:45 White Blood Count 5.0 # Red Blood Count 4.74 Hemoglobin 13.9 Hematocrit 42.1 Mean Corpuscular Volume 88.8 Mean Corpuscular Hemoglobin 29.3 Mean Corpuscular Hemoglobin Concent 33.0 Red Cell Distribution Width 12.9 Platelet Count 214 Mean Platelet Volume 10.2 Neutrophils % 65.7 Lymphocytes % 32.1 Monocytes % 1.6 Eosinophils % 0.0 Basophils % 0.2 Nucleated Red Blood Cells % 0.0 Neutrophils # 3.3 Lymphocytes # 1.6 Monocytes # 0.1 L Eosinophils # 0.0 Basophils # 0.0 Nucleated Red Blood Cells # 0.0 Prothrombin Time 15.4 H Prothrombin Time Ratio 1.2 INR International Normalized Ratio 1.21 Activated Partial Thromboplast Time 36.3 H Sodium Level 138 Potassium Level 4.2 Chloride Level 106 Carbon Dioxide Level 25 Anion Gap 11 Blood Urea Nitrogen 6 L Creatinine 0.55 Glucose Level 304 #H Calcium Level 9.4 Phosphorus Level 2.7 Magnesium Level 2.1 Total Bilirubin 0.4 Direct Bilirubin 0.00 Indirect Bilirubin 0.4 Aspartate Amino Transf (AST/SGOT) 67 H Alanine Aminotransferase (ALT/SGPT) 32 Alkaline Phosphatase 87 Total Protein 8.6 H Albumin 3.5 Globulin 5.10 H Albumin/Globulin Ratio 0.68 Thyroid Stimulating Hormone (TSH) 0.691 Free Thyroxine 1.72 Medications Medications Current Medications Acetaminophen (Tylenol Tab) 650 mg Q4H PRN PO PAIN AND OR ELEVATED TEMP; Start 07/13/17 at 22:30 Ondansetron HCl (Zofran Inj) 4 mg Q4H PRN IV NAUSEA AND/OR VOMITING; Start at 22:30 Morphine Sulfate (morphine) 2 mg Q4H PRN IV PAIN Last administered on 14:42; Admin Dose 2 MG; Start 07/13/17 at 22:30 Hydralazine HCl (Apresoline) 25 mg Q6H PRN PO ELEVATED SYSTOLIC BP Last administered on 07/13/17 22:28; Admin Dose 25 MG; Start 07/13/17 at 22:30 Anastrozole (Arimidex) 1 mg DAILY PO Last administered on 07/15/17 08:22; Admin Dose 1 MG; Start 07/14/17 at 09:00 Famotidine 20 mg 20 mg DAILY PO Last administered on 07/15/17 08:18; Admin Dose 20 MG; Start 07/14/17 at 16:00 Ondansetron HCl/ Dextrose (Zofran Inj/D5W) 54 ml @ 108 mls/hr Q8 PRN IV NAUSEA AND/OR VOMITING; Start 07/14/17 at 19:00 Prochlorperazine (Compazine) 10 mg Q6H PRN NGT NAUSEA AND/OR VOMITING; Start 07/14/17 at 19:00 Lorazepam (Ativan) 0.5 mg Q12 PRN PO NAUSEA; Start 07/14/17 at 19:00 Dexamethasone 4 mg 4 mg BID PO Last administered on 10/21/17at 08:19; Admin Dose 4 MG; Start 07/14/17 at 21:00; Stop 07/16/17 at 20:59 Potassium Chloride/Dextrose/ Sod Cl (D5-1/2ns + KCl 20 Meq) 1,000 ml @ 75 mls/ hr [id number] IV Last administered on 07/15/17t 12:53; Admin Dose 75 MLS/HR; Start 07/14/17 at 23:30 IV Flush (NS 10 ml) 10 ml PRN PRN IV FLUSH LINE; Start 07/15/17 at 13:30 SELMA FERNANDEZ MD Jul 15, 2017 15:09
--- NOTE | 2017-07-15 15:42 | RADRPT ---
PROCEDURE: XR Chest. CLINICAL INDICATION: Check PICC line position. TECHNIQUE: Single frontal view. COMPARISON: Prior study done earlier the same day. FINDINGS: There is a right arm PICC line with the tip in the cavoatrial junction region. The large right pleu ral effusion and atelectasis throughout the right mid and lower lung zones is unchanged. There is pu lmonary edema. The heart size is normal. There is calcification in the aorta consistent with atherosclerosis. Surg ical clips are present in the left axilla. There are small bilateral pleural effusions. There is no pneumothorax. IMPRESSION: 1. Right arm PICC line tip in satisfactory position. 2. No other change from the prior study done earlier the same day. RPTAT: QQ .Darren Almeida MD, Date Time Electronically viewed and signed by .Darren Almeida MD, on 07/15/2017 14:56 .R/
--- NOTE | 2017-07-15 15:51 | RADRPT ---
PROCEDURE: XR Chest. CLINICAL INDICATION: Check PICC line position. TECHNIQUE: Single frontal view. COMPARISON: 07/13/2017. FINDINGS: There is a right arm PICC line with the tip in the lower right atrium. There is patchy air space di sease throughout the right mid and lower lung zones, unchanged. Pulmonary edema is unchanged. The heart size is normal. There is calcification in the aorta consistent with atherosclerosis. Surg ical clips are present in the left axilla. There is a moderate right pleural effusion and small left pleural effusion. There is no pneumothorax. IMPRESSION: 1. Right arm PICC line tip in the lower right atrium. This should be retracted 3 cm. PICC line nurs e informed. 2. No other change from 07/13/2017. RPTAT: QQ .aDrren Almeida MD, MD Date Time Electronically viewed and signed by .Darren Almeida MD, MD on 07/15/2017 15:47 .R/
--- NOTE | 2017-07-15 15:51 | RADRPT ---
PROCEDURE: US guided left thoracentesis. CLINICAL INDICATION: Shortness of breath. Left pleural effusion. TECHNIQUE: Prior to the procedure, informed consent was obtained. The risks, benefits, and alternatives were e xplained to the patient or the patient's family, including but not limited to bleeding, infection, p ain, visceral or vascular damage, shock, pneumothorax, chest tube placement, air embolism, and . The patient or the patient's family understood the risks and the alternatives and wished to proce ed with the study. Informed written consent was obtained. A procedural pause was performed. The patient's name, date of , and procedure to be performed were verified. Ultrasound of the left hemithorax was performed in the axial and sagittal planes. A left pleural eff usion is noted. Utilizing ultrasound guidance, optimal location for entry to the pleural cavity was ascertained. The overlying skin was prepped and draped in the usual sterile fashion. Approximately 10 ml of 1% Xylocaine was injected locally for pain control. Using ultrasound guidance, a 5-Turkmen Yueh catheter was introduced into the left pleural space without difficulty. Fluid was aspirated. COMPARISON: Chest x-ray done earlier the same day. FINDINGS: Initial ultrasound demonstrates fluid in the left pleural space. Approximately 1.1 liters of serous fluid was aspirated and sent to the laboratory. IMPRESSION: 1. Satisfactory ultrasound-guided left thoracentesis. RPTAT: QQ .Darren Almeida MD, MD Date Time Electronically viewed and signed by .Darren Almeida MD, on 07/15/2017 15:45 .R/
[2017-07-15] MEDS ORDERED: DIPHENHYDRAMINE 50 MG INJ IV PRN (18:30)
[2017-07-15] MEDS ORDERED: HYDROCORTISONE 100 MG INJ IV PRN (18:30)
[2017-07-15 20:08] VITALS: BP 128/74; PULSE 68; RESP 18
[2017-07-15] MEDS ORDERED: ONDANSETRON INJ 16 MG, DEXAMETHASONE 10 MG/ML 10 MG in SOD CHLORIDE 0.9% 50 ML IVPB SCH (22:00)
[2017-07-15] MEDS ORDERED: FAMOTIDINE 20 MG INJ IV SCH (22:00)
[2017-07-15] MEDS ORDERED: DIPHENHYDRAMINE 50 MG INJ IV SCH (22:00)
[2017-07-15] MEDS ORDERED: SOD CHLORIDE 0.9% IV SCH (23:00)
[2017-07-15] MEDS ORDERED: PACLITAXEL IV SCH (23:00)
[2017-07-15 23:05] VITALS: BP 140/65; PULSE 80; RESP 18
[2017-07-15 23:37] VITALS: BP 135/75; PULSE 74; RESP 18
[2017-07-16 00:26] VITALS: BP 118/62; PULSE 69; RESP 18
[2017-07-16] MEDS: D5W-0.45 NACL + KCL 20 MEQ 1,000 ML IV SCH ×3 (01:46→20:20)
[2017-07-16 02:06] VITALS: BP 140/70; PULSE 74; RESP 18
[2017-07-16] MEDS: morphine 2 MG INJ IV PRN ×5 (02:53→20:20)
[2017-07-16] MEDS: LEVOTHYROXINE 50 MCG TAB PO SCH (07:05)
[2017-07-16 07:40] VITALS: BP 129/62; RESP 16
[2017-07-16] MEDS: DEXAMETHASONE 4 MG TAB PO SCH (08:35)
[2017-07-16] MEDS: FAMOTIDINE 20 MG TAB PO SCH (08:35)
[2017-07-16] MEDS: ANASTROZOLE 1 MG TAB PO SCH (08:38)
--- NOTE | 2017-07-16 11:26 | CONS ---
Date/Time of Note Date/Time of Note DATE: 07/16/17 TIME: 11:24 Assessment/Plan Assessment/Plan Chief Complaint/Hosp Course metastatic breast cancer with lung metastatic disease and with lymphogenic spread , and malignant pleural effusion. Left breast infiltrat ductal carcinoma diagnosed 3 years ago, ER+/CA+/HER2+, received neoadju status post left lumpectomy with subsequent radiation therapy and was supposed to be on hormonal therapy but was not compliant with her hormonal therapy. She discontinued arimidex after 1 week. resumed arimidex around 06/26/17. Pleural effusion, Cytology on 06/22/17 showed malignant carcinoma, ER-/CA- Recurrent respiratory distress secondary metastatic breast cancer with lung metastatic disease and with lymphogenic spread , and malignant pleural effusion Hypothyroidism Plans: follow up cytology result from pleural effusion. Finished chemotherapy Paclitaxel at 4am today, no reaction. If discharge patient tomorrow, please make sure discharge with anti-emetics ( zofran, compazine, ativan po prn), and pain medication (hydrocodone/ acetaminophen 10/325 prn) [id number] placement once schedule is available. continue Antiemetics prn continue Decadron 4mg bid x 3 days, started the day prior chemotherapy Will start herceptin and Pertuzumab outpatient. continue arimidex other management per PMD Long discussion with patient and daughter again, medical condition and plans were discussed. understood. Time spent with patient > 35' Problems: Consultation Date/Type/Reason Admit Date/Time Jul 13, 2017 at 20:34 Initial Consult Date 07/14/17 Type of Consultation: Hematology and oncology Reason for Consultation breast cancer with lung metastatic disease and malignant pleural effusion Referring Provider: CHRISTI GARLAND MD 24 HR Interval Summary Free Text/Dictation SOB is improved. Pleuritic pain at times, controlled with medication Exam/Review of Systems Vital Signs Vitals Vital Signs Date Time Temp Pulse Resp B/P Pulse Ox O2 Delivery O2 Flow Rate FiO2 07/16/17 07:40 97.8 74 16 129/62 92 07/16/17 07:21 Nasal Cannula 2.0 Intake and Output 07/15/17 07/15/17 07/16/17 15:00 23:00 07:00 Intake Total 600 ml 1099 ml 1400 ml Output Total 1200 ml Balance 600 ml 1099 ml 200 ml Exam Constitutional: No alert, No distress, No frail, No non-verbal, No obese, No oriented, No other, No well developed Psych: No anxiety, No confusion, No depression, No nl mood/affect, No no complaints, No other, No suicidal Head: No atraumatic, No hematomas, No lacerations, No normocephalic, No other Eyes: No EOMI, No PERRL, No fundi, disc, No icteric, No nl conjunctiva, No nl lids, No nl sclera, No other ENMT: No intubated, No mucosa pink and moist, No nl external ears & nose, No nl lips & teeth, No nl nasal mucosa & septum, No other, No tympanic membranes Respiratory: diminished breath sounds Cardiovascular: No S3, No S4, No bruits, No diastolic murmur, No edema, No gallop, No irregular rhythm, No jugular venous distention (JVD), No murmurs/ extra sounds, No nl pulses, No other, No regular rate and rhythm, No rub, No systolic murmur Gastrointestinal: No ascites, No bowel sounds, No distended, No firm, No hepatomegaly, No mass, No nl liver, spleen, No non-tender, No other, No rebound or guarding, No soft, No splenomegaly, No surgical scars, No tender Extremities: No calf tenderness, No clubbing, No cyanosis, No edema, No normal pulses, No other, No palpable cord, No pitting pedal edema, No tenderness Results Result Diagram: 07/15/1744407/15/17444 Medications Medications Current Medications Acetaminophen (Tylenol Tab) 650 mg Q4H PRN PO PAIN AND OR ELEVATED TEMP; Start 07/13/17 at 22:30 Ondansetron HCl (Zofran Inj) 4 mg Q4H PRN IV NAUSEA AND/OR VOMITING; Start at 22:30 Morphine Sulfate (morphine) 2 mg Q4H PRN IV PAIN Last administered on 07:05; Admin Dose 2 MG; Start 07/13/17 at 22:30 Hydralazine HCl (Apresoline) 25 mg Q6H PRN PO ELEVATED SYSTOLIC BP Last administered on 07/13/17 22:28; Admin Dose 25 MG; Start 07/13/17 at 22:30 Anastrozole (Arimidex) 1 mg DAILY PO Last administered on 07/16/17 08:38; Admin Dose 1 MG; Start 07/14/17 at 09:00 Famotidine 20 mg 20 mg DAILY PO Last administered on 07/16/17 08:35; Admin Dose 20 MG; Start 07/14/17 at 16:00 Ondansetron HCl/ Dextrose (Zofran Inj/D5W) 54 ml @ 108 mls/hr Q8 PRN IV NAUSEA AND/OR VOMITING Last administered on 07/15/17 22:15; Admin Dose 108 MLS /HR; Start 07/14/17 at 19:00 Prochlorperazine (Compazine) 10 mg Q6H PRN NGT NAUSEA AND/OR VOMITING; Start 07/14/17 at 19:00 Lorazepam (Ativan) 0.5 mg Q12 PRN PO NAUSEA; Start 07/14/17 at 19:00 Dexamethasone 4 mg 4 mg BID PO Last administered on 07/16/17 08:35; Admin Dose 4 MG; Start 07/14/17 at 21:00; Stop 07/16/17 at 20:59 Potassium Chloride/Dextrose/ Sod Cl (D5-1/2ns + KCl 20 Meq) 1,000 ml @ 75 mls/ hr [id number] IV Last administered on 07/16/17 09:10; Admin Dose 75 MLS/HR; Start 07/14/17 at 23:30 IV Flush (NS 10 ml) 10 ml PRN PRN IV FLUSH LINE; Start 07/15/17 at 13:30 Hydrocortisone (Solu-Cortef) 100 mg PRN PRN IV ANAPHYLAXIS RXN; Start at 18:30 Diphenhydramine HCl (Benadryl) 50 mg PRN PRN IV ANAPHYLAXIS RXN; Start at 18:30 SELMA FERNANDEZ MD Jul 16, 2017 11:26
[2017-07-16 15:31] VITALS: BP 130/60; RESP 16
[2017-07-16 19:20] VITALS: BP 154/70; RESP 17
--- NOTE | 2017-07-16 20:30 | PN ---
Date/Time of Note Date/Time of Note DATE: 07/16/17 TIME: 20:30 Assessment/Plan VTE Prophylaxis VTE Prophylaxis Intervention: SCD's Lines/Catheters IV Catheter Type (from Nrs): PICC Line Central line still needed: Yes (cancer chemotherapy) Assessment/Plan Assessment/Plan [facility] 1. 71-year-old woman admitted three days ago with worsened respiratory distress and large bilateral pleural malignant effusion secondary to left breast infiltrating ductal carcinoma diagnosed in 2013 that was ER+/OK+/HER2+. Apparent metastatic disease with lymphangitic spread in the lungs. Cytology from initial drainage of her pleural effusion on 06/22/17 showed malignant carcinoma cells that were ER-/OK-. * Plan is for discharge home tomorrow if stable * Encourage ambulation and deep breathing. * Paclitaxel 175 mg/m2 to be repeated in three weeks. Also anticipating starting her on herceptin and Pertuzumab as an outpatient. * Continue hormonal therapy with arimidex, restarted three weeks ago. * Zofran as needed for nausea * Per Dr. Blanchard, last decadron doses tomorrow at 4mg IV BID * Repeat labs tomorrow AM 2. Hypothyroidism. Her TSH was normal at 0.691. * Continue Synthroid 3. Prophylaxis * SCDs for DVT prophylaxis * Pepcid for GI prophylaxis 4. Disposition: home Monday with her daughter * Full-code * Planning for home oxygen * Planning for home nursing following initiation of chemotherapy this . Xochitl Vicente MD PhD [phone] Subjective 24 Hr Interval Summary Free Text/Dictation Feeling very well. Tolerated chemotherapy session this morning without nausea or headache. Good appetite, and ate her whole dinner tonight. Her daughter Waleska was camped in the room for the night. Exam/Review of Systems Vital Signs Vitals Vital Signs Date Time Temp Pulse Resp B/P Pulse Ox O2 Delivery O2 Flow Rate FiO2 07/16/17 19:20 98.4 79 17 154/70 92 07/16/17 07:21 Nasal Cannula 2.0 Intake and Output 07/15/17 07/15/17 07/16/17 15:00 23:00 07:00 Intake Total 600 ml 1099 ml 1400 ml Output Total 1200 ml Balance 600 ml 1099 ml 200 ml Exam Constitutional: alert, comfortable-appearing Head: Normal pupils, no jaundice. Moist oral mucosa. Respiratory: Diminished breath sounds at both base. Crackles shelter up left lung field, with trace crackles on the right. Good air movement Cardiovascular: Symmetric pulses, regular rhythm, normal rate. Gastrointestinal: non-tender, soft, bowel sounds positive. Musculoskeletal: nl extremities to inspection, with good movement of hips, knees and ankles. Warm extremities to touch. No edema, clubbing or cyanosis. Neurological: CHIEF OF HARBOR PATROL II-XII intact, nl mental status, nl speech, motor 5/5 with downgoing toes. Results Result Diagram: 07/15/1744407/15/17444 Medications Medications Current Medications Acetaminophen (Tylenol Tab) 650 mg Q4H PRN PO PAIN AND OR ELEVATED TEMP; Start 07/13/17 at 22:30 Ondansetron HCl (Zofran Inj) 4 mg Q4H PRN IV NAUSEA AND/OR VOMITING; Start at 22:30 Morphine Sulfate (morphine) 2 mg Q4H PRN IV PAIN Last administered on 20:20; Admin Dose 2 MG; Start 07/13/17 at 22:30 Hydralazine HCl (Apresoline) 25 mg Q6H PRN PO ELEVATED SYSTOLIC BP Last administered on 07/13/17 22:28; Admin Dose 25 MG; Start 07/13/17 at 22:30 Anastrozole (Arimidex) 1 mg DAILY PO Last administered on 07/16/17 08:38; Admin Dose 1 MG; Start 07/14/17 at 09:00 Famotidine 20 mg 20 mg DAILY PO Last administered on 07/16/17 08:35; Admin Dose 20 MG; Start 07/14/17 at 16:00 Ondansetron HCl/ Dextrose (Zofran Inj/D5W) 54 ml @ 108 mls/hr Q8 PRN IV NAUSEA AND/OR VOMITING Last administered on 07/15/17 22:15; Admin Dose 108 MLS /HR; Start 07/14/17 at 19:00 Prochlorperazine (Compazine) 10 mg Q6H PRN NGT NAUSEA AND/OR VOMITING; Start 07/14/17 at 19:00 Lorazepam (Ativan) 0.5 mg Q12 PRN PO NAUSEA; Start 07/14/17 at 19:00 Dexamethasone 4 mg 4 mg BID PO Last administered on 07/16/17 08:35; Admin Dose 4 MG; Start 07/14/17 at 21:00; Stop 07/16/17 at 20:59 Potassium Chloride/Dextrose/ Sod Cl (D5-1/2ns + KCl 20 Meq) 1,000 ml @ 75 mls/ hr [id number] IV Last administered on 07/16/17 20:20; Admin Dose 75 MLS/HR; Start 07/14/17 at 23:30 IV Flush (NS 10 ml) 10 ml PRN PRN IV FLUSH LINE; Start 07/15/17 at 13:30 Hydrocortisone (Solu-Cortef) 100 mg PRN PRN IV ANAPHYLAXIS RXN; Start at 18:30 Diphenhydramine HCl (Benadryl) 50 mg PRN PRN IV ANAPHYLAXIS RXN; Start at 18:30 MONSE VICENTE M.D. Jul 16, 2017 20:30
[2017-07-17] MEDS: morphine 2 MG INJ IV PRN ×3 (00:15→09:28)
[2017-07-17] MEDS: LEVOTHYROXINE 50 MCG TAB PO SCH (04:45)
[2017-07-17 07:00] VITALS: BP 116/56; RESP 18
[2017-07-17] MEDS: FAMOTIDINE 20 MG TAB PO SCH (09:27)
[2017-07-17] MEDS: ANASTROZOLE 1 MG TAB PO SCH (09:28)
[2017-07-17] MEDS: D5W-0.45 NACL + KCL 20 MEQ 1,000 ML IV SCH (10:21)
[2017-07-17 10:57] LABS: BASOPHILS % 0.1 % (0.0-2.0); HEMATOCRIT 40.6 % (37.0-47.0); HEMOGLOBIN 13.2 g/dl (12.0-16.0); LYMPHOCYTES # 1.8 10^3/ul (0.8-2.9); LYMPHOCYTES % 11.2 % (15.0-51.0); MEAN CORPUSCULAR HEMOGLOBIN 29.1 pg (29.0-33.0); MEAN CORPUSCULAR HGB CONC 32.5 g/dl (32.0-37.0); MEAN CORPUSCULAR VOLUME 89.4 fl (82.0-101.0); MEAN PLATELET VOLUME 10.7 fl (7.4-10.4); MONOCYTE # 0.3 10^3/ul (0.3-0.9); MONOCYTES % 2.1 % (0.0-11.0); NEUTROPHIL # 13.7 10^3/ul (1.6-7.5); PLATELET COUNT 180 10^3/UL (140-415); RED BLOOD COUNT 4.54 10^6/ul (4.20-5.40); RED CELL DISTRIBUTION WIDTH 12.9 % (11.5-14.5); WHITE BLOOD COUNT 15.9 10^3/ul (4.8-10.8)
[2017-07-17 11:24] LABS: CALCIUM 8.3 mg/dl (8.4-10.2); CREATININE 0.56 mg/dl (0.44-1.00); POTASSIUM 3.9 mmol/L (3.5-5.1)
--- NOTE | 2017-07-17 12:12 | PN ---
Date/Time of Note Date/Time of Note DATE: 07/17/17 TIME: 11:56 Assessment/Plan VTE Prophylaxis VTE Prophylaxis Intervention: SCD's Lines/Catheters IV [facility] Type (from [facility]): PICC Line Central line still needed: Yes Assessment/Plan Assessment/Plan 71-year-old female with 1. Metastatic breast cancer, with pleural metastases and malignant pleural effusion. Status post right thoracentesis with removal of 1 L, this is her second thoracentesis over the past 3 weeks. Pathology from [facility] showing metastatic breast cancer. Appreciate recommendation and assistance from Dr. Blanchard Patient status post first dose of chemotherapy on this admission, she is stable today, she will be discharged home with outpatient oncology follow-up with Dr. Blanchard. Currently arranging for home oxygen if needed, 4 wheeled walker, home health for PICC line care, bedside commode. Further outpatient labs and treatment per Dr. Blanchard. We will discharge with [place] as needed and Zofran as needed. Patient's daughter at the bedside has been updated, per Dr. Blanchard's note yesterday, okay to discharge today if stable. Patient is clinically stable from the medical standpoint for discharge with outpatient oncology follow-up. 2. Hypothyroidism: Continue Synthroid 3. Previously diagnosed breast cancer, status post left lumpectomy 3 years ago followed by radiation therapy, patient was supposed to be on hormonal therapy with Arimidex but apparently she was not compliant She is now with metastatic breast cancer with pleural metastases, she has started chemotherapy inpatient, further chemotherapy hopefully to be done outpatient. Follow-up with Dr. Blanchard within 1 week. Prophylaxis: SCDs for DVT prophylaxis, Pepcid for GI prophylaxis Disposition: Discharge home today with outpatient follow-up with oncology, PCP, home health and supplemental oxygen at home if qualifies. Subjective 24 Hr Interval Summary Free Text/Dictation Events over the weekend noted, patient status post thoracentesis with removal of 1 L pleural fluid, she also had a dose of chemotherapy Monday night. She is doing well this morning. We will check her oxygen saturation on room air in order to arrange for home O2 as needed. Per daughter also will need for walker and bedside commode. Home health has been ordered for PICC line care. Further follow-up with Dr. Blanchard Exam/Review of Systems Vital Signs Vitals Vital Signs Date Time Temp Pulse Resp B/P Pulse Ox O2 Delivery O2 Flow Rate FiO2 10/23/17 07:35 Nasal Cannula 2.0 07/17/17 07:00 97.4 66 18 116/56 97 Intake and Output 07/16/17 07/16/17 07/17/17 15:00 23:00 07:00 Intake Total 300 ml 1515 ml 1350 ml Output Total 300 ml 4 ml Balance 300 ml 1215 ml 1346 ml Exam Constitutional: alert, frail, oriented, other (On 2 L nasal cannula) Respiratory: diminished breath sounds (At the bases) Cardiovascular: nl pulses, regular rate and rhythm Gastrointestinal: non-tender, soft Musculoskeletal: nl extremities to inspection Extremities: normal pulses, other (No edema, clubbing or cyanosis) Neurological: CLAY PIGEON LOADER II-XII intact, nl mental status, nl speech, other (Improving generalized weakness) Results Result Diagram: 07/17/17 1032 07/17/17 1032 Results 24 hrs Laboratory Tests Test 07/17/17 10:32 White Blood Count 15.9 #H Red Blood Count 4.54 Hemoglobin 13.2 Hematocrit 40.6 Mean Corpuscular Volume 89.4 Mean Corpuscular Hemoglobin 29.1 Mean Corpuscular Hemoglobin Concent 32.5 Red Cell Distribution Width 12.9 Platelet Count 180 Mean Platelet Volume 10.7 H Neutrophils % 86.0 H Lymphocytes % 11.2 L Monocytes % 2.1 Eosinophils % 0.0 Basophils % 0.1 Nucleated Red Blood Cells % 0.0 Neutrophils # 13.7 H Lymphocytes # 1.8 Monocytes # 0.3 Eosinophils # 0.0 Basophils # 0.0 Nucleated Red Blood Cells # 0.0 Sodium Level 141 Potassium Level 3.9 Chloride Level 106 Carbon Dioxide Level 27 Anion Gap 12 Blood Urea Nitrogen 12 Creatinine 0.56 Glucose Level 188 Calcium Level 8.3 L Imaging Free Text/Dictation PROCEDURE: XR Chest. CLINICAL INDICATION: Shortness of breath. Post right thoracentesis. TECHNIQUE: Single frontal view. COMPARISON: 07/15/2017. 1235 hours. FINDINGS: There is mild interstitial disease bilaterally in the mid and lower lung zones consistent with pulmonary edema. There is improved aeration of the right lung following the right thoracentesis. The lungs are otherwise clear. The heart size is normal. There is calcification in the aorta consistent with atherosclerosis. Surgical clips are present in the left axilla. There are small bilateral pleural effusions. There is a very small right pneumothorax measuring approximately 5%. There is no left pneumothorax. IMPRESSION: 1. Mild pulmonary edema. 2. Improved aeration of the right lung. 3. Atherosclerosis. 4. Prior left axillary surgery. 5. Small bilateral pleural effusions. 6. Very small right pneumothorax measuring approximately 5%. Follow-up chest x- ray and clinical correlation advised. Medications Medications Current Medications Acetaminophen (Tylenol Tab) 650 mg Q4H PRN PO PAIN AND OR ELEVATED TEMP; Start 07/13/17 at 22:30 Ondansetron HCl (Zofran Inj) 4 mg Q4H PRN IV NAUSEA AND/OR VOMITING; Start at 22:30 Morphine Sulfate (morphine) 2 mg Q4H PRN IV PAIN Last administered on 09:28; Admin Dose 2 MG; Start 07/13/17 at 22:30 Hydralazine HCl (Apresoline) 25 mg Q6H PRN PO ELEVATED SYSTOLIC BP Last administered on 07/13/17 22:28; Admin Dose 25 MG; Start 07/13/17 at 22:30 Anastrozole (Arimidex) 1 mg DAILY PO Last administered on 07/17/17 09:28; Admin Dose 1 MG; Start 07/14/17 at 09:00 Famotidine 20 mg 20 mg DAILY PO Last administered on 07/17/17 09:27; Admin Dose 20 MG; Start 07/14/17 at 16:00 Ondansetron HCl/ Dextrose (Zofran Inj/D5W) 54 ml @ 108 mls/hr Q8 PRN IV NAUSEA AND/OR VOMITING Last administered on 07/15/17 22:15; Admin Dose 108 MLS /HR; Start 07/14/17 at 19:00 Prochlorperazine (Compazine) 10 mg Q6H PRN NGT NAUSEA AND/OR VOMITING; Start 07/14/17 at 19:00 Lorazepam 0.5 mg 0.5 mg Q12 PRN PO NAUSEA; Start 07/14/17 at 19:00 Potassium Chloride/Dextrose/ Sod Cl (D5-1/2ns + KCl 20 Meq) 1,000 ml @ 75 mls/ hr [id number] IV Last administered on 07/17/17 10:21; Admin Dose 75 MLS/HR; Start 07/14/17 at 23:30 IV Flush (NS 10 ml) 10 ml PRN PRN IV FLUSH LINE; Start 07/15/17 at 13:30 Hydrocortisone (Solu-Cortef) 100 mg PRN PRN IV ANAPHYLAXIS RXN; Start at 18:30 Diphenhydramine HCl (Benadryl) 50 mg PRN PRN IV ANAPHYLAXIS RXN; Start at 18:30 SHANNAN FERRER Jul 17, 2017 12:12
--- NOTE | 2017-07-17 12:13 | PDOCDIS ---
Discharge Instructions CONDITION Patient Condition: Stable HOME CARE INSTRUCTIONS: Special Diet: REGULAR ACTIVITY: Activity Restrictions: Slowly Increase Activity FOLLOW UP/APPOINTMENTS Follow-up Plan Follow-up with primary care physician within 1 week Follow-up with oncology, Dr. Blanchard within 1 week Follow-up with home health for PICC line [facility] oxygen if qualifies, 2 L nasal cannula. SHANNAN FERRER Jul 17, 2017 12:12
[2017-07-17] MEDS ORDERED: HYDR-902 PO (12:14)
[2017-07-17] MEDS ORDERED: ONDA8TAB9 PO (12:15)
[2017-07-17] MEDS ORDERED: HYDROCODONE/APAP (10/325) TAB PO PRN (12:30)
[2017-07-17 14:00] VITALS: BP 122/57; RESP 18
[2017-07-17] MEDS ORDERED: PROC10TA PO (16:17)
[2017-07-17] MEDS ORDERED: LORA1TAB PO (16:17)
[2017-07-17] MEDS ORDERED: HEPARIN (100 UNITS/ML) 5 ML SYG CATHETER ONE (16:30)
--- NOTE | 2017-07-20 13:25 | RADRPT ---
Echocardiogram Report Patient Name: TALI HIGGINS Gender: Female Date: 1945 Study Date: 15-Jul-2017 Shaping Machine Tender: [id number] Location: [id number] Ref. Physician: NATHALIE FERRER Quality: Good Procedures: Transthoracic echocardiogram with complete 2D, M-Mode, and doppler examination. Indications: Evaluate for LV function, possible initiation of chemo. 2D/M Mode Doppler Measurement Value Normal Ranges Measurement Value Normal Ranges AoR Diam MM 3.0 cm CY Vmax 2.0 cm2 ACS MM 1.8 cm CY VTI 2.0 cm2 LA/Ao MM 0.8 AV Peak Jose 1.2 m/sec LA Dimen MM 2.5 cm AV Peak PG 6.0 mmHg LVIDd 2D 4.2 3.5 - 5.6 cm LVOT Peak Jose 0.9 m/sec LVIDs 2D 2.8 2.1 - 4.1 cm LVOT Peak PG 3.5 mmHg LVPWd 2D 1.0 0.6 - 1.1 cm MV E Peak Jose 0.6 m/sec IVSd 2D 1.0 0.6 - 1.1 cm MV A Peak Jose 0.9 m/sec EDV 2D 77.5 cm3 MV E/A 0.7 ESV 2D 22.9 cm3 MV Decel Time 194 msec EF 2D 61.0 50.0 - 65.0 % MV Decel Obion 3 LVOT Diam 1.8 cm MV E/A 0.7 TR Peak Jose 2.8 m/sec TR Peak PG 31.2 mmHg RVSP 34.0 mmHg Findings Left Ventricle: Normal left ventricular systolic function. Normal left ventricular cavity size. Normal left ventricular wall thickness. Ejection fraction is visually estimated at 65 %. Tissue Doppler/Mitral Doppler indices are consistent with impaired relaxation (Stage I diastolic dysfunction). Right Ventricle: Normal right ventricular size. Normal right ventricular systolic function. Left Atrium: The left atrium is normal in size. Right Atrium: The right atrium is normal in size. Mitral Valve: Mild mitral annular calcification. Trace mitral regurgitation. Aortic Valve: Normal appearance of the aortic valve. No hemodynamically significant aortic stenosis by doppler. Trace aortic valve regurgitation. Tricuspid Valve: Normal appearance and function of the tricuspid valve with trace physiologic regurgitation. Estimated peak PA systolic pressure 34 mmHg. Pulmonic Valve: Normal pulmonic valve appearance. There is trace pulmonic regurgitation. Pericardium: Normal pericardium with no significant pericardial effusion. Pleural effusion seen. Aorta: Normal aortic root. IVC: Normal size and normal respiratory collapse consistent with normal right atrial pressure. Conclusions 1.Normal left ventricular systolic function. Normal left ventricular cavity size. Normal left ventricular wall thickness. Ejection fraction is visually estimated at 65 %. Tissue Doppler/Mitral Doppler indices are consistent with impaired relaxation (Stage I diastolic dysfunction). 2.Normal right ventricular size. Normal right ventricular systolic function. 3.The left atrium is normal in size. 4.The right atrium is normal in size. 5.No significant valvular stenosis or regurgitation seen. 6.Normal pericardium with no significant pericardial effusion. Pleural effusion seen. Electronically Signed By: Jeff Decker 20-Jul-2017 13:25:30 -0700 Patient Name: TALI HIGGINS Study Date: 15-Jul-2017 [id number]
== END 2017-07-17 19:25 | disposition home health service (06) | DRG 181 ==
LOC: E/R 15:19 → MS1 20:34
PROVIDERS: ADMIT Legal Medicine; ATTEND Legal Medicine
PROC: 3E04305 Introduction of Other Antineoplastic into Central Vein, Percutaneous Approach (ICD-10-PCS; principal; 2017-07-15)
PROC: 02HV33Z Insertion of Infusion Device into Superior Vena Cava, Percutaneous Approach (ICD-10-PCS; 2017-07-15)
PROC: B54MZZA Ultrasonography of Right Upper Extremity Veins, Guidance (ICD-10-PCS; 2017-07-15)
PROC: 0W9B3ZX Drainage of Left Pleural Cavity, Percutaneous Approach, Diagnostic (ICD-10-PCS; 2017-07-15)
DX: C78.00 Secondary malignant neoplasm of unspecified lung (principal); J91.0 Malignant pleural effusion; C78.2 Secondary malignant neoplasm of pleura; C50.912 Malignant neoplasm of unspecified site of left female breast; E03.9 Hypothyroidism, unspecified; Z92.3 Personal history of irradiation; Z87.891 Personal history of nicotine dependence
CPT/HCPCS: 36415; 36569; 71010; 71260; 76937; 76942; 80048; 80053; 83735; 83880; 84100; 84439; 84443; 84484; 85025; 85610; 85730; 86300; 88104; 88305; 93005; 93306; 96374; J1100; J1200; J1642; J2270; J2405; J3480; J7040; Q9967

== ENCOUNTER 2017-07-29 13:00 | Inpatient (IN) | payer OTHER ==
[~2017-07-29] VITALS: Ht 160 cm; Wt 56.9 kg
[~2017-07-29 13:00] MED LIST: ANAS1TAB PO; DIPH1TAB25 PO; HYDR-902 PO; LEVO50TA74 PO; LORA1TAB PO; ONDA8TAB9 PO; PROC10TA PO
[2017-07-29] MEDS ORDERED: HYDROmorphONE 1 MG/ML SYG IV STA (13:45)
[2017-07-29] MEDS ORDERED: ONDANSETRON 4 MG INJ IV STA (13:45)
--- NOTE | 2017-07-29 14:25 | RADRPT ---
PROCEDURE: XR Chest. CLINICAL INDICATION: Shortness of breath, chest pain TECHNIQUE: Single frontal view of the chest was obtained COMPARISON: 07/15/2017 FINDINGS: Right PICC with tip projecting over the right atrium. Bilateral pleural effusions, moderate on the right and small on the left. There is an associated opa city in the right lower lung zone, likely atelectasis Interval development of moderate interstitial pulmonary edema. Stable enlarged cardiac silhouette. Calcified aortic arch suggestive of chronic systemic hypertensio n. No acute osseous abnormality. Left axillary surgical clips. IMPRESSION: Bilateral pleural effusions, left greater than right with associated moderate interstitial pulmonary edema. Superimposed infection to be determined clinically. RPTAT: EE Physician Jonathan Date Time Electronically viewed and signed by Dre Koch Physician on 07/29/2017 14:24 /
[2017-07-29] MEDS ORDERED: IOHEXOL 300MG/ML 150 ML BTL ONE (14:48)
[2017-07-29] MEDS ORDERED: SOD CHLORIDE 0.9% 100 ML ONE (14:48)
[2017-07-29] MEDS ORDERED: METOCLOPRAMIDE 10 MG INJ IV ONE (15:00)
--- NOTE | 2017-07-29 15:18 | RADRPT ---
PROCEDURE: CT abdomen and pelvis with contrast. CLINICAL INDICATION: Right sided abdominal pain TECHNIQUE: CT scan of the abdomen and pelvis without oral contrast was performed and is reconstruc latesha at 2.5 mm contiguous axial intervals from the dome of the diaphragm to the inferior pubic rami.. The patient was scanned with intravenous contrast. Sagittal and coronal reformatted images were o btained from the axial source images. The calculated radiation dose measures 439 mGy centimeters. Th e CTDI measures 9 mGy. Individualized dose optimization technique was used for the performance of this exam. This included 1. Automated exposure control. 2. Adjustment of the mA and / or kV according to the patient's size. 3. Use of iterative reconstructed technique. COMPARISON: None. FINDINGS: Noted is a moderate-sized right pleural effusion and small left pleural effusion. There is partial c ollapse of the right lower lobe with atelectasis deep in the left costophrenic recess. Pulmonary vas cular congestion is seen without evidence of alveolar infiltrate. The liver is of normal size, contour and attenuation with no solid mass or ductal dilatation. gallbl adder is distended and contains stones. The wall does not appear to be edematous and no pericholecys tic phlegmon is seen. No splenic, adrenal or pancreatic abnormalities present. Kidneys are of normal size and contour. No hydronephrosis, calculus or solid masses seen. Bilater al less than 5 mm cortical renal cysts are present. Ureters are of normal course and caliber with no stone. No bladder mass or stone is present. Atrophic postmenopausal uterus is normal. There is no adnexal mass. There is no aneurysm. No adenopathy is present. No bowel mass or obstruction is present. The appendix is normal. No phlegmon, ascites or pneumop eritoneum is visualized. The osseous structures are intact. IMPRESSION: No evidence of urolithiasis, obstructive uropathy, diverticulitis or appendicitis. Small renal cysts. Cholelithiasis in distended gallbladder. No wall thickening or phlegmon. Moderate-sized right pleural effusion with partial right lower lobe collapse. Small left pleural eff usion with left basilar atelectasis. Pulmonary vascular congestion. .Dilan Mata MD, Date Time Electronically viewed and signed by .Dilan Mata MD, on 07/29/2017 15:17 .A/
--- NOTE | 2017-07-29 16:18 | ERD ---
ER Documentation Chief Complaint Chief Complaint sob x 2 hrs prior to arrival, hx left breast ca HPI This is a 71-year-old female with a history of breast cancer. The patient was just discharged from the hospital here last week with right pleural effusion and drainage demonstrating some cancerous cells in the pleural fluid. She is complaining of pain in the right lower rib cage and right upper quadrant and right flank. The pain is crampy and sometimes sharp and is intermittent over the past 2 days. She is having some shortness of breath and she says it is the same feeling that she had with a pleural effusion. She is also having some nausea and vomiting over the past 2 days off and on is nonbilious and nonbloody. No fever no cough no diarrhea. The patient has had one round of chemotherapy while in the hospital a few weeks ago ROS All systems reviewed and are negative except as per history of present illness. Medications Home Meds Active Scripts Prochlorperazine Maleate (Compazine) 10 Mg Tablet, 10 MG PO Q6H Y for NAUSEA AND /OR VOMITING, #30 TAB Prov:SHANNAN FERRER 07/17/17 Lorazepam* (Lorazepam*) 1 Mg Tablet, 0.5 MG PO Q12 Y for NAUSEA, #30 TAB Prov:SHANNAN FERRER 07/17/17 Ondansetron Hcl* (Zofran*) 8 Mg Tablet, 8 MG PO Q6H Y for NAUSEA AND OR VOMITING , #60 TAB Prov:SHANNAN FERRER 07/17/17 Hydrocodone/Acetaminophen ([place] 10-325 Tablet) 1 Each Tablet, 1 EACH PO Q8 Y for PAIN, #60 TAB Prov:SHANNAN FERRER 07/17/17 Reported Medications Anastrozole* (Arimidex*) 1 Mg Tablet, 1 MG PO DAILY, #30 TAB 07/13/17 Levothyroxine Sodium* (Levothyroxine Sodium*) 50 Mcg Tablet, 50 MCG PO BEFORE BREAKFAST, #30 TAB 07/13/17 Discontinued Reported Medications Diphenoxylate HCl/Atropine (Diphenoxylate-Atrop 2.5-0.025) 1 Each Tablet, 1 EACH PO TID, TAB 07/13/17 Allergies Allergies: Coded Allergies: No Known Drug Allergies (Verified Allergy, Unknown, 07/13/17) PMhx/Soc History of Surgery: Yes ((L) BREAST.) Anesthesia Reaction: No Hx Neurological Disorder: No Hx Respiratory Disorders: No Hx Cardiac Disorders: No Hx Psychiatric Problems: No Hx Miscellaneous Medical Probl: Yes (OA) Hx Alcohol Use: No Hx Substance Use: No Hx Tobacco Use: No FmHx Family History: No coronary disease Physical Exam Vitals Vital Signs Date Time Temp Pulse Resp B/P Pulse Ox O2 Delivery O2 Flow Rate FiO2 07/29/17 17:44 Nasal Cannula 2 07/29/17 17:00 76 20 135/67 94 Room Air 07/29/17 13:32 Nasal Cannula 2.0 07/29/17 13:00 72 22 136/65 94 Physical Exam Const: Well-developed, well-nourished Head: Atraumatic, normocephalic Eyes: Normal Conjunctiva, PERRLA, EOMI, normal sclera, no nystagmus ENT: Normal External Ears, Nose and Mouth, moist mucus membranes. Neck: Full range of motion. No meningismus, no lymphadenopathy. Resp: Decreased breath sounds bilateral bases right greater than left, no increased work of breathing Cardio: Regular rate and rhythm, no murmurs, S1 S2 present Abd: Soft, tenderness to the right upper quadrant and right flank, non distended. Normal bowel sounds, no guarding or rebound, no pulsitile abdominal masses or bruits Skin: No petechiae or rashes, no ecchymosis , no maculopapular rash Back: No midline or flank tenderness Ext: No cyanosis, or edema, FROM x 4, normal inspection, neurovascularly intact x 4 Neur: Awake and alert, STR 5/5 x 4, sensation intact x 4, no focal findings, cerebellum intact Psych: Normal Mood and Affect Result Diagram: 07/29/17 1400 07/29/17 1400 Results 24 hrs Laboratory Tests Test 07/29/17 14:00 White Blood Count 4.210^3/ul Red Blood Count 4.3210^6/ul Hemoglobin 12.6g/dl Hematocrit 38.1% Mean Corpuscular Volume 88.2fl Mean Corpuscular Hemoglobin 29.2pg Mean Corpuscular Hemoglobin Concent 33.1g/dl Red Cell Distribution Width 12.7% Platelet Count 61041^3/UL Mean Platelet Volume 9.0fl Neutrophils % % Segmented Neutrophils % (Manual) 9% Band Neutrophils % (Manual) 6% Lymphocytes % % Lymphocytes % (Manual) 41% Reactive Lymphocytes % (Manual) 2% Monocytes % % Monocytes % (Manual) 23% Eosinophils % % Eosinophils % (Manual) 17% Basophils % % Basophils % (Manual) 1% Myelocytes % (Manual) 1% Plasma Cells % (manual) 1% Nucleated Red Blood Cells % 0.0/100WBC Neutrophils # 10^3/ul Neutrophils # (Manual) 0.410^3/ul Band Neutrophils # 0.210^3/ul Absolute Lymphocytes (Manual) 1.710^3/ul Lymphocytes # 10^3/ul Reactive Lymphocytes # 0.010^3/ul Monocytes # 10^3/ul Absolute Monocytes (Manual) 0.910^3/ul Eosinophils # 10^3/ul Basophils # 10^3/ul Basophils # (Manual) 0.010^3/ul Myelocytes # 0.010^3/ul Plasma Cells # (manual) 0.010^3/ul Nucleated Red Blood Cells # 10^3/ul Platelet Estimate NORMAL Giant Platelets 1% Anisocytosis 1+ Prothrombin Time 14.2Sec Prothrombin Time Ratio 1.1 INR International Normalized Ratio 1.10 Activated Partial Thromboplast Time 34.1Sec Sodium Level 139mmol/L Potassium Level 3.7mmol/L Chloride Level 104mmol/L Carbon Dioxide Level 28mmol/L Anion Gap 11 Blood Urea Nitrogen 6mg/dl Creatinine 0.49mg/dl Glucose Level 140mg/dl Calcium Level 8.7mg/dl Total Bilirubin 0.3mg/dl Direct Bilirubin 0.00mg/dl Indirect Bilirubin 0.3mg/dl Aspartate Amino Transf (AST/SGOT) 44IU/L Alanine Aminotransferase (ALT/SGPT) 30IU/L Alkaline Phosphatase 125IU/L Troponin I < 0.012ng/ml B-Type Natriuretic Peptide 80PG/ML Total Protein 7.2g/dl Albumin 3.4g/dl Globulin 3.80g/dl Albumin/Globulin Ratio 0.89 Current Medications Medications (Trade) Dose Ordered Sig/Feroz Route PRN Reason Start Time Stop Time Status Last Admin Dose Admin Hydromorphone HCl (Dilaudid) 1 mg ONCE STAT IV 07/29/17 13:45 07/29/17 13:47 DC 07/29/17 14:11 Ondansetron HCl (Zofran Inj) 4 mg ONCE STAT IV 07/29/17 13:45 07/29/17 13:47 DC 07/29/17 14:11 Iohexol 150 ml 150 ml STK-MED ONCE .ROUTE 07/29/17 14:48 07/29/17 14:49 DC 07/29/17 15:08 Sodium Chloride (NS) 100 ml @ ud STK-MED ONCE .ROUTE 07/29/17 14:48 07/29/17 14:49 DC 07/29/17 15:08 Metoclopramide HCl (Reglan) 10 mg ONCE ONCE IV 07/29/17 15:00 07/29/17 15:01 DC 07/29/17 14:57 Procedures/MDM EKG: Rate/Rhythm: Normal Sinus Rhythm,NL intervals QRS, ST, QT: NORMAL NH, QRS, QT] Impression: NORMAL EKG PROCEDURE: CT abdomen and pelvis with contrast. CLINICAL INDICATION: Right sided abdominal pain TECHNIQUE: CT scan of the abdomen and pelvis without oral contrast was performed and is reconstructed at 2.5 mm contiguous axial intervals from the dome of the diaphragm to the inferior pubic rami.. The patient was scanned with intravenous contrast. Sagittal and coronal reformatted images were obtained from the axial source images. The calculated radiation dose measures 439 mGy centimeters. The CTDI measures 9 mGy. Individualized dose optimization technique was used for the performance of this exam. This included 1. Automated exposure control. 2. Adjustment of the mA and / or kV according to the patient's size. 3. Use of iterative reconstructed technique. COMPARISON: None. FINDINGS: Noted is a moderate-sized right pleural effusion and small left pleural effusion. There is partial collapse of the right lower lobe with atelectasis deep in the left costophrenic recess. Pulmonary vascular congestion is seen without evidence of alveolar infiltrate. The liver is of normal size, contour and attenuation with no solid mass or ductal dilatation. gallbladder is distended and contains stones. The wall does not appear to be edematous and no pericholecystic phlegmon is seen. No splenic, adrenal or pancreatic abnormalities present. Kidneys are of normal size and contour. No hydronephrosis, calculus or solid masses seen. Bilateral less than 5 mm cortical renal cysts are present. Ureters are of normal course and caliber with no stone. No bladder mass or stone is present. Atrophic postmenopausal uterus is normal. There is no adnexal mass. There is no aneurysm. No adenopathy is present. No bowel mass or obstruction is present. The appendix is normal. No phlegmon , ascites or pneumoperitoneum is visualized. The osseous structures are intact. IMPRESSION: No evidence of urolithiasis, obstructive uropathy, diverticulitis or appendicitis. Small renal cysts. Cholelithiasis in distended gallbladder. No wall thickening or phlegmon. Moderate-sized right pleural effusion with partial right lower lobe collapse. Small left pleural effusion with left basilar atelectasis. Pulmonary vascular congestion. .Dilan Mata MD, MD Date Time Electronically viewed and signed by .Dilan Mata MD, on 07/29/2017 15: 17 .A/ CC: SHAAN CHEN DO PROCEDURE: XR Chest. CLINICAL INDICATION: Shortness of breath, chest pain TECHNIQUE: Single frontal view of the chest was obtained COMPARISON: 07/15/2017 FINDINGS: Right PICC with tip projecting over the right atrium. Bilateral pleural effusions, moderate on the right and small on the left. There is an associated opacity in the right lower lung zone, likely atelectasis Interval development of moderate interstitial pulmonary edema. Stable enlarged cardiac silhouette. Calcified aortic arch suggestive of chronic systemic hypertension. No acute osseous abnormality. Left axillary surgical clips. IMPRESSION: Bilateral pleural effusions, left greater than right with associated moderate interstitial pulmonary edema. Superimposed infection to be determined clinically. RPTAT: EE Physician Jonathan Date Time Electronically viewed and signed by Physician Jonathan on 07/29/2017 14 :24 GC/ CC: SHAAN CHEN DO Patient has bilateral pleural effusions right more than left. She is also having some vomiting for the past few days. She does have gallstones on her CAT scan which may be the cause of her right upper quadrant pain. Will obtain an ultrasound now. Patient is having intractable vomiting at home and in the ER. She seems Reglan is calming down the vomiting at this time. PROCEDURE: Right upper quadrant abdominal ultrasound. CLINICAL INDICATION: Abdominal pain TECHNIQUE: [place] scale and color doppler ultrasound images of the right upper quadrant of the abdomen. COMPARISON: CT abdomen pelvis 07/29/2017 FINDINGS: Pancreas: Visualized portions appear of normal echogenicity without focal lesions. Liver: Morphology:Normal in size. Contour:Normal, no evidence of nodularity. Echogenicity: Mildly increased Focal lesions:None. Main portal vein: Patent with hepatopetal flow. Biliary System: Gallbladder wall: Normal thickness. Gallstones: Multiple are present Intrahepatic bile ducts: Normal caliber. Common bile duct diameter (mm): 3.8 Kidneys: Right length (cm) : 11.9 Right cortical thickness: Normal. Echogenicity: Normal. Hydronephrosis: Minimal pelviectasis without caliectasis may be developmental. Renal calculi: None. Focal lesions: None. Free fluid/ascites: None. Abdominal aorta: Normal caliber of the visualized segments. Other findings: Partially visualized bilateral pleural effusions. IMPRESSION: Cholelithiasis without evidence of abnormal gallbladder wall thickening to suggest cholecystitis. Normal caliber of the intrahepatic and extrahepatic biliary system. Mildly increased echogenicity of the liver suggestive of hepatic steatosis. RPTAT: AADD .William Don MD, MD Date Time Electronically viewed and signed by .William Don MD, on 07/29/2017 17:00 .B/ CC: SHAAN CHEN DO Spoke with Dr. ferrer and will admit for pleural effusion that needs to be drained again, pain vomiting Departure Diagnosis: Primary Impression: Shortness of breath Additional Impressions: Bilateral pleural effusion Gallstones Condition: Stable SHAAN CHEN DO Jul 29, 2017 16:18
--- NOTE | 2017-07-29 17:00 | RADRPT ---
PROCEDURE: Right upper quadrant abdominal ultrasound. CLINICAL INDICATION: Abdominal pain TECHNIQUE: [place] scale and color doppler ultrasound images of the right upper quadrant of the abdom en. COMPARISON: CT abdomen pelvis 07/29/2017 FINDINGS: Pancreas: Visualized portions appear of normal echogenicity without focal lesions. Liver: Morphology:Normal in size. Contour:Normal, no evidence of nodularity. Echogenicity: Mildly increased Focal lesions:None. Main portal vein: Patent with hepatopetal flow. Biliary System: Gallbladder wall: Normal thickness. Gallstones: Multiple are present Intrahepatic bile ducts: Normal caliber. Common bile duct diameter (mm): 3.8 Kidneys: Right length (cm) : 11.9 Right cortical thickness: Normal. Echogenicity: Normal. Hydronephrosis: Minimal pelviectasis without caliectasis may be developmental. Renal calculi: None. Focal lesions: None. Free fluid/ascites: None. Abdominal aorta: Normal caliber of the visualized segments. Other findings: Partially visualized bilateral pleural effusions. IMPRESSION: Cholelithiasis without evidence of abnormal gallbladder wall thickening to suggest cholecystitis. Normal caliber of the intrahepatic and extrahepatic biliary system. Mildly increased echogenicity of the liver suggestive of hepatic steatosis. RPTAT: AADD .William Don MD, MD Date Time Electronically viewed and signed by .William Don MD, on 07/29/2017 17:00 .B/
[2017-07-29] MEDS ORDERED: SOD CHLORIDE 0.9% 1,000 ML IV SCH (18:22)
[2017-07-29] MEDS ORDERED: ACETAMINOPHEN 325 MG TAB PO PRN ×2 (18:30→21:00)
[2017-07-29] MEDS ORDERED: ONDANSETRON 4 MG INJ IV PRN ×2 (18:30→21:00)
[2017-07-29 20:00] VITALS: BP 147/66; RESP 20
[2017-07-29 20:07] VITALS: Ht 160 cm; Wt 56.9 kg
[2017-07-29] MEDS ORDERED: NACL 0.9% 3 ML SYG IV SCH (21:00)
[2017-07-29] MEDS ORDERED: PROCHLORPERAZINE 10 MG TAB PO PRN (21:00)
[2017-07-29] MEDS ORDERED: DOCUSATE SODIUM 100 MG CAP PO PRN (21:00)
[2017-07-29] MEDS ORDERED: MAGNESIUM HYDROXIDE 30ML CUP PO PRN (21:00)
[2017-07-29] MEDS ORDERED: LORAZEPAM 1 MG TAB PO PRN (21:00)
[2017-07-29] MEDS ORDERED: HYDROCODONE/APAP (5/325) TAB PO PRN (21:00)
[2017-07-29] MEDS ORDERED: BISACODYL 10 MG SUPP PR PRN (21:00)
[2017-07-29] MEDS: FAMOTIDINE 20 MG TAB PO SCH (21:04)
[2017-07-29] MEDS: SOD CHLORIDE 0.9% 1,000 ML IV SCH (21:05)
[2017-07-29] MEDS: morphine 2 MG INJ IV PRN (21:23)
[2017-07-30] MEDS: morphine 2 MG INJ IV PRN ×4 (01:25→20:14)
[2017-07-30 01:42] VITALS: BP 142/64; RESP 20
[2017-07-30] MEDS: LEVOTHYROXINE 50 MCG TAB PO SCH (05:01)
[2017-07-30] MEDS: SOD CHLORIDE 0.9% 1,000 ML IV SCH ×2 (05:46→17:50)
[2017-07-30 07:43] VITALS: BP 118/61; RESP 14
[2017-07-30] MEDS: FAMOTIDINE 20 MG TAB PO SCH ×2 (08:33→20:14)
[2017-07-30] MEDS: ANASTROZOLE 1 MG TAB PO SCH (08:48)
--- NOTE | 2017-07-30 13:02 | HP ---
Date/Time of Note Date/Time of Note DATE: 07/30/17 TIME: 12:37 Assessment/Plan VTE Prophylaxis VTE Prophylaxis Intervention: SCD's Lines/Catheters IV [facility] (from [facility] PICC Line (Right upper extremity) Central line still needed: Yes (For IV access and outpatient chemotherapy) Assessment/Plan Assessment/Plan 71-year-old female with 1. Metastatic breast cancer, with pleural metastases and malignant pleural effusion. Chronic hypoxemia, on home oxygen but patient admitted with severe respiratory distress and recurrence of her right pleural effusion at least. Right thoracentesis to be done today Continue supplemental oxygen Continue current hormonal therapy Aloe up with Dr. Blanchard post discharge Patient status post first dose of chemotherapy last admission, 3 weeks ago. And now has been compliant with hormonal therapy. 2. Hypothyroidism: Continue Synthroid 3. Nausea, vomiting likely related to chemotherapy and current hormonal therapy , feels better today. Continue Zofran, Ativan, promethazine as needed for nausea. 4. Right flank, right lower chest and right upper quadrant pain, all likely related to her pleural metastasis and the effusions. CAT scan of the abdomen and pelvis did show cholelithiasis but no acute cholecystitis or choledocholithiasis. Continue pain control. Prophylaxis: SCDs for DVT prophylaxis, Pepcid for GI prophylaxis Disposition: Right thoracentesis today, pain control, likely discharge home in the next 24 to 48 hrs with outpatient follow-up with oncology. HPI/ROS Admit Date/Time Admit Date/Time Jul 29, 2017 at 18:23 Hx of Present Illness Chief complaint: Respiratory distress and cough History of presenting illness: This is a 71-year-old female with known metastatic breast cancer with pleural metastases and recurrent right pleural effusion who was brought in by ambulance due to increasing respiratory distress for the past 2-3 days. Patient's daughter is the one who provided the history, the patient herself is having trouble with language barrier but the daughter is very detailed. Patient was discharged from [facility] approximately 3 weeks ago after 1 dose of IV chemotherapy for her metastatic breast cancer and also right thoracentesis with removal of 1 L of pleural fluid. She was restarted on hormonal therapy as an outpatient. According to the daughter she has been feeling weak and still having ongoing hypoxemia which is unfortunately chronic at this point but over the past 2-3 days she declined acutely with cough, severe shortness of breath, dyspnea on exertion and orthopnea. She also started having more symptomatic nausea and vomiting. She was complaining of right-sided chest/flank/right upper quadrant pain that is described as pleuritic in nature. The patient saw her primary care physician who gave her antitussive but her symptoms were not improving, therefore they called 911 and she was taken to [facility]. On chest x-ray and CAT scan of the abdomen and pelvis, patient is found to have a moderate right pleural effusion with compressive atelectasis, cholelithiasis with no signs of acute infection. She was nauseous and vomiting yesterday, she is feeling better today, she is still complaining of right-sided chest/back/ flank right upper quadrant pain however seems to be much more comfortable. She is on her way to interventional radiology for a right thoracentesis, fluid will be sent to rule out acute infection and check also for cytology again. The patient's daughter has been updated about the plan of care, she is also understanding that our goal is to stabilized the patient and subsequently discharge her to follow-up with her oncologist as she needs apparently another round of chemotherapy that had to be ordered and Dr. Blanchard, her oncologist, is still waiting for the chemotherapeutic agents to be delivered. No fevers, chills, diarrhea, constipation, focal neurological changes, hemoptysis, hematemesis. Her cough is a dry cough. ROS Constitutional: fatigue, nausea Eyes: no complaints ENT: no complaints Respiratory: cough, pain, pleuritic pain, shortness of breath Cardiovascular: no complaints Gastrointestinal: nausea, vomiting Genitourinary: no complaints Musculoskeletal: no complaints Skin: no complaints Neurologic: no complaints Endocrine: no complaints Lymphatic: no complaints PMH/Family/Social Past Medical History Metastatic breast cancer, with recurrent right pleural effusion, pleural metastases, status post IV chemotherapy 1, 3 weeks ago and now compliant with hormonal therapy Hyperlipidemia Recurrent right pleural effusion Chronic hypoxemia secondary to recurrent pleural effusions and pleural metastasis of breast cancer Past Surgical History Status post left lumpectomy 3 years ago Family History Significant Family History: no pertinent family hx Social History Alcohol Use: none Smoking Status: Never smoker Drug Use: none Exam/Review of Systems Vital Signs Vitals Vital Signs Date Time Temp Pulse Resp B/P Pulse Ox O2 Delivery O2 Flow Rate FiO2 07/30/17 08:15 Nasal Cannula 2.0 07/30/17 07:43 98.0 74 14 118/61 99 Intake and Output 07/29/17 07/29/17 07/30/17 15:00 23:00 07:00 Intake Total 1190 ml Balance 1190 ml Exam Constitutional: alert, oriented, other (Comfortable on 2 L nasal cannula), well developed Head: normocephalic Eyes: EOMI, nl conjunctiva, nl lids Respiratory: diminished breath sounds (Right lower lobe), normal air movement, other (Pleuritic pain right lower chest right upper quadrant) Cardiovascular: nl pulses, regular rate and rhythm Gastrointestinal: soft, tender (Right upper quadrant right flank, right lower chest pain) Musculoskeletal: nl extremities to inspection, nl gait and stance Extremities: normal pulses, other (No edema, clubbing or cyanosis, right upper extremity PICC line) 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, nl mental status, nl speech, nl strength Labs Result Diagram: 07/30/1753607/30/17536 Medications Medications Current Medications Sodium Chloride (NS) 1,000 ml @ 100 mls/hr Q10H IV Last administered on 05:46; Admin Dose 100 MLS/HR; Start 07/29/17 at 20:37 Ondansetron HCl (Zofran Inj) 4 mg Q6H PRN IV NAUSEA AND/OR VOMITING Last administered on 07/29/17 21:22; Admin Dose 4 MG; Start 07/29/17 at 21:00 Acetaminophen (Tylenol Tab) 650 mg Q6H PRN PO PAIN LEVEL 1-3 OR FEVER; Start 07/29/17 at 21:00 Acetaminophen/ Hydrocodone Bitart ([place] (5/325)) 1 tab Q6H PRN PO MODERATE PAIN LEVEL 4-6; Start 07/29/17 at 21:00 Acetaminophen/ Hydrocodone Bitart ([place] (5/325)) 2 tab Q6H PRN PO SEVERE PAIN LEVEL 7-10; Start 07/29/17 at 21:00 Morphine Sulfate (morphine) 2 mg Q4H PRN IV SEVERE PAIN LEVEL 7-10 Last administered on 07/30/17 05:01; Admin Dose 2 MG; Start 07/29/17 at 21:00 Docusate Sodium (Colace) 100 mg Q12H PRN PO CONSTIPATION; Start 07/29/17 at 21: 00 Magnesium Hydroxide (Milk Of Mag) 30 ml DAILY PRN PO CONSTIPATION; Start at 21:00 Bisacodyl (Dulcolax Supp) 10 mg DAILY PRN [place] CONSTIPATION; Start 07/29/17 at 21 :00 Famotidine (Pepcid) 20 mg Q12 PO Last administered on 07/30/17 08:33; Admin Dose 20 MG; Start 07/29/17 at 21:00 Anastrozole (Arimidex) 1 mg DAILY PO Last administered on 07/30/17 08:48; Admin Dose 1 MG; Start 07/30/17 at 09:00 Levothyroxine Sodium (Synthroid) 50 mcg DAILY@06 PO Last administered on 05:01; Admin Dose 50 MCG; Start 07/30/17 at 06:00 Lorazepam (Ativan) 0.5 mg Q12 PRN PO NAUSEA; Start 07/29/17 at 21:00 Prochlorperazine (Compazine) 10 mg Q6H PRN PO NAUSEA AND/OR VOMITING; Start at 21:00 Procedures Procedures PROCEDURE: XR Chest. CLINICAL INDICATION: Shortness of breath, chest pain TECHNIQUE: Single frontal view of the chest was obtained COMPARISON: 07/15/2017 FINDINGS: Right PICC with tip projecting over the right atrium. Bilateral pleural effusions, moderate on the right and small on the left. There is an associated opacity in the right lower lung zone, likely atelectasis Interval development of moderate interstitial pulmonary edema. Stable enlarged cardiac silhouette. Calcified aortic arch suggestive of chronic systemic hypertension. No acute osseous abnormality. Left axillary surgical clips. IMPRESSION: Bilateral pleural effusions, left greater than right with associated moderate interstitial pulmonary edema. Superimposed infection to be determined clinically. RPTAT: EE PROCEDURE: CT abdomen and pelvis with contrast. CLINICAL INDICATION: Right sided abdominal pain TECHNIQUE: CT scan of the abdomen and pelvis without oral contrast was performed and is reconstructed at 2.5 mm contiguous axial intervals from the dome of the diaphragm to the inferior pubic rami.. The patient was scanned with intravenous contrast. Sagittal and coronal reformatted images were obtained from the axial source images. The calculated radiation dose measures 439 mGy centimeters. The CTDI measures 9 mGy. Individualized dose optimization technique was used for the performance of this exam. This included 1. Automated exposure control. 2. Adjustment of the mA and / or kV according to the patient's size. 3. Use of iterative reconstructed technique. COMPARISON: None. FINDINGS: Noted is a moderate-sized right pleural effusion and small left pleural effusion. There is partial collapse of the right lower lobe with atelectasis deep in the left costophrenic recess. Pulmonary vascular congestion is seen without evidence of alveolar infiltrate. The liver is of normal size, contour and attenuation with no solid mass or ductal dilatation. gallbladder is distended and contains stones. The wall does not appear to be edematous and no pericholecystic phlegmon is seen. No splenic, adrenal or pancreatic abnormalities present. Kidneys are of normal size and contour. No hydronephrosis, calculus or solid masses seen. Bilateral less than 5 mm cortical renal cysts are present. Ureters are of normal course and caliber with no stone. No bladder mass or stone is present. Atrophic postmenopausal uterus is normal. There is no adnexal mass. There is no aneurysm. No adenopathy is present. No bowel mass or obstruction is present. The appendix is normal. No phlegmon , ascites or pneumoperitoneum is visualized. The osseous structures are intact. IMPRESSION: No evidence of urolithiasis, obstructive uropathy, diverticulitis or appendicitis. Small renal cysts. Cholelithiasis in distended gallbladder. No wall thickening or phlegmon. Moderate-sized right pleural effusion with partial right lower lobe collapse. Small left pleural effusion with left basilar atelectasis. Pulmonary vascular congestion. .Dilan Mata MD, Date Time Electronically viewed and signed by .Dilan Mata MD, MD on 07/29/2017 15: 17 .A/ CC: SHAAN CHEN DO PROCEDURE: Right upper quadrant abdominal ultrasound. CLINICAL INDICATION: Abdominal pain TECHNIQUE: [place] scale and color doppler ultrasound images of the right upper quadrant of the abdomen. COMPARISON: CT abdomen pelvis 07/29/2017 FINDINGS: Pancreas: Visualized portions appear of normal echogenicity without focal lesions. Liver: Morphology:Normal in size. Contour:Normal, no evidence of nodularity. Echogenicity: Mildly increased Focal lesions:None. Main portal vein: Patent with hepatopetal flow. Biliary System: Gallbladder wall: Normal thickness. Gallstones: Multiple are present Intrahepatic bile ducts: Normal caliber. Common bile duct diameter (mm): 3.8 Kidneys: Right length (cm) : 11.9 Right cortical thickness: Normal. Echogenicity: Normal. Hydronephrosis: Minimal pelviectasis without caliectasis may be developmental. Renal calculi: None. Focal lesions: None. Free fluid/ascites: None. Abdominal aorta: Normal caliber of the visualized segments. Other findings: Partially visualized bilateral pleural effusions. IMPRESSION: Cholelithiasis without evidence of abnormal gallbladder wall thickening to suggest cholecystitis. Normal caliber of the intrahepatic and extrahepatic biliary system. Mildly increased echogenicity of the liver suggestive of hepatic steatosis. RPTAT: AADD .William Don MD, MD Date Time SHANNAN FERRER Jul 30, 2017 13:02
--- NOTE | 2017-07-30 14:32 | RADRPT ---
PROCEDURE: US guided right thoracentesis. CLINICAL INDICATION: Shortness of breath. Right pleural effusion. TECHNIQUE: Prior to the procedure, informed consent was obtained. The risks, benefits, and alternatives were e xplained to the patient or the patient's family, including but not limited to bleeding, infection, p ain, visceral or vascular damage, shock, pneumothorax, chest tube placement, air embolism, and . The patient or the patient's family understood the risks and the alternatives and wished to proce ed with the study. Informed written consent was obtained. A procedural pause was performed. The patient's name, date of , and procedure to be performed were verified. Ultrasound of the right hemithorax was performed in the axial and sagittal planes. A right pleural e ffusion is noted. Utilizing ultrasound guidance, optimal location for entry to the pleural cavity wa s ascertained. The overlying skin was prepped and draped in the usual sterile fashion. Approximate ly 10 ml of 1% Xylocaine was injected locally for pain control. Using ultrasound guidance, a 5-Fren Yueh catheter was introduced into the right pleural space without difficulty. Fluid was aspirated . COMPARISON: Chest x-ray dated 07/29/2017. FINDINGS: Initial ultrasound demonstrates fluid in the right pleural space. Approximately 0.900 liters of ser ous fluid was aspirated and sent to the laboratory. IMPRESSION: 1. Satisfactory ultrasound-guided right thoracentesis. RPTAT: QQ .Darren Almeida MD, Date Time Electronically viewed and signed by .Darren Almeida MD, on 07/30/2017 14:31 .R/
--- NOTE | 2017-07-30 14:32 | RADRPT ---
PROCEDURE: XR Chest. CLINICAL INDICATION: Shortness of breath. Post right thoracentesis. TECHNIQUE: Single frontal view. COMPARISON: 07/29/2017. FINDINGS: There is improved aeration of the right lung and previously noted right pleural effusion is now much smaller. There is no left pleural effusion. There is pulmonary edema. The heart size is normal. There is calcification in the aorta consistent with atherosclerosis. A right arm PICC line is in satisfactory position. Surgical clips are present in the left axilla. There is no pneumothorax. IMPRESSION: 1. No pneumothorax following right thoracentesis. 2. No other change from the 07/29/2017 chest radiograph. RPTAT: QQ .Darren Almeida MD, MD Date Time Electronically viewed and signed by .Darren Almeida MD, on 07/30/2017 14:32 .R/
[2017-07-30 15:15] VITALS: BP 131/70; PULSE 84; RESP 22
[2017-07-30] MEDS ORDERED: LIDOCAINE 1% (MPF) 5 ML VIAL ONE (16:10)
[2017-07-30 19:37] VITALS: BP 146/71; RESP 20
[2017-07-31] MEDS: morphine 2 MG INJ IV PRN ×2 (00:17→05:18)
[2017-07-31 02:12] VITALS: BP 168/76; RESP 20
[2017-07-31] MEDS: SOD CHLORIDE 0.9% 1,000 ML IV SCH (02:37)
[2017-07-31 02:40] VITALS: BP 132/70; PULSE 72; RESP 18
[2017-07-31] MEDS: LEVOTHYROXINE 50 MCG TAB PO SCH (05:18)
[2017-07-31 07:45] VITALS: BP 157/72; RESP 20
[2017-07-31] MEDS: ANASTROZOLE 1 MG TAB PO SCH (08:32)
[2017-07-31] MEDS: HYDROCODONE/APAP (5/325) TAB PO PRN ×2 (08:38→14:00)
[2017-07-31] MEDS: FAMOTIDINE 20 MG TAB PO SCH (09:32)
--- NOTE | 2017-07-31 11:39 | PN ---
Date/Time of Note Date/Time of Note DATE: 07/31/17 TIME: 11:36 Assessment/Plan VTE Prophylaxis VTE Prophylaxis Intervention: SCD's Lines/Catheters IV Catheter Type (from [facility]rs[facility]): PICC Line Central line still needed: Yes (for IV access and chemo ) Assessment/Plan Assessment/Plan 71-year-old female with 1. Metastatic breast cancer, with pleural metastases and malignant pleural effusion. Chronic hypoxemia, on home oxygen but patient admitted with severe respiratory distress and recurrence of her right pleural effusion S/p Right thoracentesis with removal of 1L NC Continue supplemental oxygen at home Continue current hormonal therapy, per Dr Blanchard, not due for IV Chemo until next week Follow up with Dr. Blanchard on Thursday 08/02 at 9 45 AM Patient status post first dose of chemotherapy last admission, 3 weeks ago. Compliant with hormonal therapy. 2. Hypothyroidism: Continue Synthroid. 3. Nausea, vomiting likely related to chemotherapy and current hormonal therapy , feels better and seems resolved currently Continue Zofran, Ativan, promethazine as needed for nausea at home. 4. Right flank, right lower chest and right upper quadrant pain, all likely related to her pleural metastasis and the effusions. CAT scan of the abdomen and pelvis did show cholelithiasis but no acute cholecystitis or choledocholithiasis. Continue pain control prn. Prophylaxis: SCDs for DVT prophylaxis, Pepcid for GI prophylaxis Disposition: Plan for discharge home today with outpatient follow up with Dr Blanchard on Monday08/02/17 at 9 45AM. F/u with PCP within 1 week. Subjective 24 Hr Interval Summary Free Text/Dictation Patient doing Ok post thoracentesis with removal of approx 1L She has pleuritic right pain mostly, no other acute findings. Discussed with Dr Blanchard, will d/c home with outpatient follow up with Dr Blanchard on Monday08/02/17 at 945AM Exam/Review of Systems Vital Signs Vitals Vital Signs Date Time Temp Pulse Resp B/P Pulse Ox O2 Delivery O2 Flow Rate FiO2 07/31/17 07:45 98.3 72 20 157/72 98 07/31/17 02:40 Nasal Cannula 07/30/17 20:15 2.0 Intake and Output 07/30/17 07/30/17 07/31/17 15:00 23:00 07:00 Intake Total 725 ml 2760 ml 1510 ml Balance 725 ml 2760 ml 1510 ml Exam Constitutional: alert, oriented, well developed Respiratory: diminished breath sounds (RLL and pleurtic chest pain with deep breath ), normal air movement Cardiovascular: nl pulses, regular rate and rhythm Gastrointestinal: non-tender, soft Musculoskeletal: nl extremities to inspection, other (no edema, clubbing or cyanosis ) Extremities: normal pulses 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, nl mental status, nl speech, nl strength Results Result Diagram: 07/31/1717 07/31/1717 Results 24 hrs Laboratory Tests Test 07/30/17 13:30 07/31/17 05:17 Body Fluid Type THORACENTESIS FLUID Body Fluid Volume 950.0 Body Fluid Color RED Body Fluid Appearance TURBID Body Fluid WBC 1663 Body Fluid RBC (Auto) 17399 Body Fluid Polynuclear WBCs (%) 77.3 Body Fluid Mononuclear Cells % Auto 22.7 Body Fluid Glucose 136 Body Fluid Total Protein 4.8 Body Fluid Lactate Dehydrogenase 492 White Blood Count 4.7 L Red Blood Count 3.93 L Hemoglobin 11.3 L Hematocrit 34.8 L Mean Corpuscular Volume 88.5 Mean Corpuscular Hemoglobin 28.8 L Mean Corpuscular Hemoglobin Concent 32.5 Red Cell Distribution Width 12.8 Platelet Count 239 Mean Platelet Volume 9.2 Neutrophils % 17.3 L Lymphocytes % 48.5 Monocytes % 18.0 H Eosinophils % 10.4 H Basophils % 2.8 H Nucleated Red Blood Cells % 0.0 Neutrophils # 0.8 L Lymphocytes # 2.3 Monocytes # 0.9 Eosinophils # 0.5 Basophils # 0.1 Nucleated Red Blood Cells # 0.0 Sodium Level 142 Potassium Level 3.5 Chloride Level 109 Carbon Dioxide Level 28 Anion Gap 9 Blood Urea Nitrogen < 2 L Creatinine 0.49 Glucose Level 96 Calcium Level 7.9 L Phosphorus Level 3.0 Magnesium Level 2.0 Medications Medications Current Medications Sodium Chloride (NS) 1,000 ml @ 100 mls/hr Q10H IV Last administered on 02:37; Admin Dose 100 MLS/HR; Start 07/29/17 at 20:37 Ondansetron HCl (Zofran Inj) 4 mg Q6H PRN IV NAUSEA AND/OR VOMITING Last administered on 07/29/17 21:22; Admin Dose 4 MG; Start 07/29/17 at 21:00 Acetaminophen (Tylenol Tab) 650 mg Q6H PRN PO PAIN LEVEL 1-3 OR FEVER; Start 07/29/17 at 21:00 Acetaminophen/ Hydrocodone Bitart ([place] (5/325)) 1 tab Q6H PRN PO MODERATE PAIN LEVEL 4-6; Start 07/29/17 at 21:00 Acetaminophen/ Hydrocodone Bitart ([place] (5/325)) 2 tab Q6H PRN PO SEVERE PAIN LEVEL 7-10 Last administered on 07/31/17 08:38; Admin Dose 2 TAB; Start at 21:00 Morphine Sulfate (morphine) 2 mg Q4H PRN IV SEVERE PAIN LEVEL 7-10 Last administered on 07/31/17 05:18; Admin Dose 2 MG; Start 07/29/17 at 21:00 Docusate Sodium (Colace) 100 mg Q12H PRN PO CONSTIPATION; Start 07/29/17 at 21: 00 Magnesium Hydroxide (Milk Of Mag) 30 ml DAILY PRN PO CONSTIPATION; Start at 21:00 Bisacodyl (Dulcolax Supp) 10 mg DAILY PRN [place] CONSTIPATION; Start 07/29/17 at 21 :00 Famotidine (Pepcid) 20 mg Q12 PO Last administered on 07/31/17 09:32; Admin Dose 20 MG; Start 07/29/17 at 21:00 Anastrozole (Arimidex) 1 mg DAILY PO Last administered on 07/31/17 08:32; Admin Dose 1 MG; Start 07/30/17 at 09:00 Levothyroxine Sodium (Synthroid) 50 mcg DAILY@06 PO Last administered on 05:18; Admin Dose 50 MCG; Start 07/30/17 at 06:00 Lorazepam (Ativan) 0.5 mg Q12 PRN PO NAUSEA; Start 07/29/17 at 21:00 Prochlorperazine (Compazine) 10 mg Q6H PRN PO NAUSEA AND/OR VOMITING; Start at 21:00 SHANNAN FERRER Jul 31, 2017 11:39
--- NOTE | 2017-07-31 11:52 | PN ---
Date/Time of Note Date/Time of Note DATE: 07/31/17 TIME: 11:51 Assessment/Plan Lines/Catheters IV Catheter Type ([facility] PICC Line Assessment/Plan Assessment/Plan 71-year-old female with 1. Metastatic breast cancer, with pleural metastases and malignant pleural effusion. Chronic hypoxemia, on home oxygen but patient admitted with severe respiratory distress and recurrence of her right pleural effusion at least. Right thoracentesis to be done today Continue supplemental oxygen Continue current hormonal therapy Aloe up with Dr. Blanchard post discharge Patient status post first dose of chemotherapy last admission, 3 weeks ago. And now has been compliant with hormonal therapy. 2. Hypothyroidism: Continue Synthroid 3. Nausea, vomiting likely related to chemotherapy and current hormonal therapy , feels better today. Continue Zofran, Ativan, promethazine as needed for nausea. 4. Right flank, right lower chest and right upper quadrant pain, all likely related to her pleural metastasis and the effusions. CAT scan of the abdomen and pelvis did show cholelithiasis but no acute cholecystitis or choledocholithiasis. Continue pain control. Prophylaxis: SCDs for DVT prophylaxis, Pepcid for GI prophylaxis Disposition: Right thoracentesis today, pain control, likely discharge home in the next 24 to 48 hrs with outpatient follow-up with oncology. Exam/Review of Systems Vital Signs Vitals Vital Signs Date Time Temp Pulse Resp B/P Pulse Ox O2 Delivery O2 Flow Rate FiO2 07/31/17 07:45 98.3 72 20 157/72 98 07/31/17 02:40 Nasal Cannula 07/30/17 20:15 2.0 Intake and Output 07/30/17 07/30/17 07/31/17 15:00 23:00 07:00 Intake Total 725 ml 2760 ml 1510 ml Balance 725 ml 2760 ml 1510 ml Results Result Diagram: 07/31/1717 07/31/17 0517 Results 24 hrs Laboratory Tests Test 07/30/17 13:30 07/31/17 05:17 Body Fluid Type THORACENTESIS FLUID Body Fluid Volume 950.0 Body Fluid Color RED Body Fluid Appearance TURBID Body Fluid WBC 1663 Body Fluid RBC (Auto) 75171 Body Fluid Polynuclear WBCs (%) 77.3 Body Fluid Mononuclear Cells % Auto 22.7 Body Fluid Glucose 136 Body Fluid Total Protein 4.8 Body Fluid Lactate Dehydrogenase 492 White Blood Count 4.7 L Red Blood Count 3.93 L Hemoglobin 11.3 L Hematocrit 34.8 L Mean Corpuscular Volume 88.5 Mean Corpuscular Hemoglobin 28.8 L Mean Corpuscular Hemoglobin Concent 32.5 Red Cell Distribution Width 12.8 Platelet Count 239 Mean Platelet Volume 9.2 Neutrophils % 17.3 L Lymphocytes % 48.5 Monocytes % 18.0 H Eosinophils % 10.4 H Basophils % 2.8 H Nucleated Red Blood Cells % 0.0 Neutrophils # 0.8 L Lymphocytes # 2.3 Monocytes # 0.9 Eosinophils # 0.5 Basophils # 0.1 Nucleated Red Blood Cells # 0.0 Sodium Level 142 Potassium Level 3.5 Chloride Level 109 Carbon Dioxide Level 28 Anion Gap 9 Blood Urea Nitrogen < 2 L Creatinine 0.49 Glucose Level 96 Calcium Level 7.9 L Phosphorus Level 3.0 Magnesium Level 2.0 Medications Medications Current Medications Ondansetron HCl (Zofran Inj) 4 mg Q6H PRN IV NAUSEA AND/OR VOMITING Last administered on 07/29/17 21:22; Admin Dose 4 MG; Start 07/29/17 at 21:00 Acetaminophen (Tylenol Tab) 650 mg Q6H PRN PO PAIN LEVEL 1-3 OR FEVER; Start 07/29/17 at 21:00 Acetaminophen/ Hydrocodone Bitart ([place] (5/325)) 1 tab Q6H PRN PO MODERATE PAIN LEVEL 4-6; Start 07/29/17 at 21:00 Acetaminophen/ Hydrocodone Bitart ([place] (5/325)) 2 tab Q6H PRN PO SEVERE PAIN LEVEL 7-10 Last administered on 07/31/17 08:38; Admin Dose 2 TAB; Start at 21:00 Morphine Sulfate (morphine) 2 mg Q4H PRN IV SEVERE PAIN LEVEL 7-10 Last administered on 07/31/17 05:18; Admin Dose 2 MG; Start 07/29/17 at 21:00 Docusate Sodium (Colace) 100 mg Q12H PRN PO CONSTIPATION; Start 07/29/17 at 21: 00 Magnesium Hydroxide (Milk Of Mag) 30 ml DAILY PRN PO CONSTIPATION; Start at 21:00 Bisacodyl (Dulcolax Supp) 10 mg DAILY PRN [place] CONSTIPATION; Start 11/4/17 at 21 :00 Famotidine (Pepcid) 20 mg Q12 PO Last administered on 07/31/17 09:32; Admin Dose 20 MG; Start 07/29/17 at 21:00 Anastrozole (Arimidex) 1 mg DAILY PO Last administered on 07/31/17 08:32; Admin Dose 1 MG; Start 07/30/17 at 09:00 Levothyroxine Sodium (Synthroid) 50 mcg DAILY@06 PO Last administered on 05:18; Admin Dose 50 MCG; Start 07/30/17 at 06:00 Lorazepam (Ativan) 0.5 mg Q12 PRN PO NAUSEA; Start 07/29/17 at 21:00 Prochlorperazine (Compazine) 10 mg Q6H PRN PO NAUSEA AND/OR VOMITING; Start at 21:00 SHANNAN FERRER Jul 31, 2017 11:52
--- NOTE | 2017-07-31 11:52 | PN ---
Date/Time of Note Date/Time of Note DATE: 07/31/17 TIME: 11:51 Assessment/Plan Lines/Catheters IV [facility] ([facility] P[facility] Line Assessment/Plan Assessment/Plan 71-year-old female with 1. Metastatic breast cancer, with pleural metastases and malignant pleural effusion. Chronic hypoxemia, on home oxygen but patient admitted with severe respiratory distress and recurrence of her right pleural effusion at least. Right thoracentesis to be done today Continue supplemental oxygen Continue current hormonal therapy Aloe up with Dr. Blanchard post discharge Patient status post first dose of chemotherapy last admission, 3 weeks ago. And now has been compliant with hormonal therapy. 2. Hypothyroidism: Continue Synthroid 3. Nausea, vomiting likely related to chemotherapy and current hormonal therapy , feels better today. Continue Zofran, Ativan, promethazine as needed for nausea. 4. Right flank, right lower chest and right upper quadrant pain, all likely related to her pleural metastasis and the effusions. CAT scan of the abdomen and pelvis did show cholelithiasis but no acute cholecystitis or choledocholithiasis. Continue pain control. Prophylaxis: SCDs for DVT prophylaxis, Pepcid for GI prophylaxis Disposition: Right thoracentesis today, pain control, likely discharge home in the next 24 to 48 hrs with outpatient follow-up with oncology. Exam/Review of Systems Vital Signs Vitals Vital Signs Date Time Temp Pulse Resp B/P Pulse Ox O2 Delivery O2 Flow Rate FiO2 07/31/17 07:45 98.3 72 20 157/72 98 07/31/17 02:40 Nasal Cannula 07/30/17 20:15 2.0 Intake and Output 07/30/17 07/30/17 07/31/17 15:00 23:00 07:00 Intake Total 725 ml 2760 ml 1510 ml Balance 725 ml 2760 ml 1510 ml Results Result Diagram: 07/31/1717 07/31/17 0517 Results 24 hrs Laboratory Tests Test 07/30/17 13:30 07/31/17 05:17 Body Fluid Type THORACENTESIS FLUID Body Fluid Volume 950.0 Body Fluid Color RED Body Fluid Appearance TURBID Body Fluid WBC 1663 Body Fluid RBC (Auto) 82068 Body Fluid Polynuclear WBCs (%) 77.3 Body Fluid Mononuclear Cells % Auto 22.7 Body Fluid Glucose 136 Body Fluid Total Protein 4.8 Body Fluid Lactate Dehydrogenase 492 White Blood Count 4.7 L Red Blood Count 3.93 L Hemoglobin 11.3 L Hematocrit 34.8 L Mean Corpuscular Volume 88.5 Mean Corpuscular Hemoglobin 28.8 L Mean Corpuscular Hemoglobin Concent 32.5 Red Cell Distribution Width 12.8 Platelet Count 239 Mean Platelet Volume 9.2 Neutrophils % 17.3 L Lymphocytes % 48.5 Monocytes % 18.0 H Eosinophils % 10.4 H Basophils % 2.8 H Nucleated Red Blood Cells % 0.0 Neutrophils # 0.8 L Lymphocytes # 2.3 Monocytes # 0.9 Eosinophils # 0.5 Basophils # 0.1 Nucleated Red Blood Cells # 0.0 Sodium Level 142 Potassium Level 3.5 Chloride Level 109 Carbon Dioxide Level 28 Anion Gap 9 Blood Urea Nitrogen < 2 L Creatinine 0.49 Glucose Level 96 Calcium Level 7.9 L Phosphorus Level 3.0 Magnesium Level 2.0 Medications Medications Current Medications Ondansetron HCl (Zofran Inj) 4 mg Q6H PRN IV NAUSEA AND/OR VOMITING Last administered on 07/29/17 21:22; Admin Dose 4 MG; Start 07/29/17 at 21:00 Acetaminophen (Tylenol Tab) 650 mg Q6H PRN PO PAIN LEVEL 1-3 OR FEVER; Start 07/29/17 at 21:00 Acetaminophen/ Hydrocodone Bitart ([place] (5/325)) 1 tab Q6H PRN PO MODERATE PAIN LEVEL 4-6; Start 07/29/17 at 21:00 Acetaminophen/ Hydrocodone Bitart ([place] (5/325)) 2 tab Q6H PRN PO SEVERE PAIN LEVEL 7-10 Last administered on 07/31/17 08:38; Admin Dose 2 TAB; Start at 21:00 Morphine Sulfate (morphine) 2 mg Q4H PRN IV SEVERE PAIN LEVEL 7-10 Last administered on 07/31/17 05:18; Admin Dose 2 MG; Start 07/29/17 at 21:00 Docusate Sodium (Colace) 100 mg Q12H PRN PO CONSTIPATION; Start 07/29/17 at 21: 00 Magnesium Hydroxide (Milk Of Mag) 30 ml DAILY PRN PO CONSTIPATION; Start at 21:00 Bisacodyl (Dulcolax Supp) 10 mg DAILY PRN [place] CONSTIPATION; Start 11/4/17 at 21 :00 Famotidine (Pepcid) 20 mg Q12 PO Last administered on 07/31/17 09:32; Admin Dose 20 MG; Start 07/29/17 at 21:00 Anastrozole (Arimidex) 1 mg DAILY PO Last administered on 07/31/17 08:32; Admin Dose 1 MG; Start 07/30/17 at 09:00 Levothyroxine Sodium (Synthroid) 50 mcg DAILY@06 PO Last administered on 05:18; Admin Dose 50 MCG; Start 07/30/17 at 06:00 Lorazepam (Ativan) 0.5 mg Q12 PRN PO NAUSEA; Start 07/29/17 at 21:00 Prochlorperazine (Compazine) 10 mg Q6H PRN PO NAUSEA AND/OR VOMITING; Start at 21:00 SHANNAN FERRER Jul 31, 2017 11:52
--- NOTE | 2017-07-31 12:34 | PDOCDIS ---
Discharge Instructions CONDITION Patient Condition: Stable HOME CARE INSTRUCTIONS: Diet Instructions: Regular ACTIVITY: Activity Restrictions: No Restrictions FOLLOW UP/APPOINTMENTS Follow-up Plan Follow up with PCP within 1 week Follow up with Dr Balnchard on Monday08/02/17 at 9 45 AM SHANNAN FERRER Jul 31, 2017 12:34
[2017-07-31 13:49] VITALS: BP 146/67; RESP 20
== END 2017-07-31 18:25 | disposition home health service (06) | DRG 598 ==
LOC: E/R 13:00 → MS2 18:23
PROVIDERS: ADMIT Internal Medicine; ATTEND Internal Medicine
PROC: 0W993ZX Drainage of Right Pleural Cavity, Percutaneous Approach, Diagnostic (ICD-10-PCS; principal; 2017-07-30)
DX: C50.912 Malignant neoplasm of unspecified site of left female breast (principal); J91.0 Malignant pleural effusion; Z99.81 Dependence on supplemental oxygen; R09.02 Hypoxemia; E03.9 Hypothyroidism, unspecified; E78.5 Hyperlipidemia, unspecified; K80.20 Calculus of gallbladder without cholecystitis without obstruction; R11.2 Nausea with vomiting, unspecified; T45.1X5A Adverse effect of antineoplastic and immunosuppressive drugs, initial encounter; Y92.230 Patient room in hospital as the place of occurrence of the external cause
CPT/HCPCS: 36415; 71010; 74177; 76705; 76942; 80048; 80053; 82945; 83615; 83735; 83880; 84100; 84157; 84484; 85025; 85610; 85730; 87070; 87081; 87102; 87116; 88104; 88305; 89051; 93005; 96374; 96375; J1170; J2270; J2405; J2765; J7030; Q9967

== ENCOUNTER 2017-08-10 14:44 | Emergency (ER) | payer OTHER ==
[~2017-08-10] VITALS: Ht 154.9 cm; Wt 55.8 kg
[~2017-08-10 14:44] MED LIST changes: -DIPH1TAB25 PO
[2017-08-10 14:47] VITALS: Ht 154.9 cm; Wt 55.8 kg
--- NOTE | 2017-08-10 16:31 | ERD ---
ER Documentation Chief Complaint Chief Complaint pt bib family with c/o sob, hx breast ca mets to lung, HPI This is a 71-year-old female with a past medical history of breast cancer status post lumpectomy complicated by metastases to the lung, hypothyroidism who is presenting with progressive worsening chest tightness and shortness of breath. The patient has been in and out of the hospital recently for progressive shortness of breath. She is admitted at the end of June and found to have a moderate left-sided pleural effusion that was ultimately drained via thoracentesis. She was admitted again at the beginning of July for similar symptoms, but at that time there was a larger right-sided pleural effusion. A thoracentesis was performed on the right during her most recent admission. She has received chemotherapy during her hospitalizations via a PICC line that is inserted in her right arm. She is supposed to obtain chemotherapy via her pharmacy, but there have been issues with obtaining. She is due for her chemotherapy today or tomorrow, but she will not be able to obtain it as an outpatient. Her oncologist requests for admission to receive the chemotherapy. She also endorses mild right upper quadrant abdominal discomfort, which has also been ongoing. An ultrasound was performed on July 29 that revealed cholelithiasis but no cholecystitis. This pain is unchanged but still present. The medical record indicates that she last had a chest CT on July 13 that was concerning for metastatic pulmonary disease and pleural effusions. A CT of the abdomen and pelvis was completed on July 29 that demonstrated a distended gallbladder with cholelithiasis but no cholecystitis. There are no significant inflammatory, infectious or neoplastic changes in the abdomen or pelvis. The right-sided pleural effusion with partial right lung collapse was evidence on the scan as well. The patient denies fever or chills. The patient has had no headache or vision changes. The patient does not endorse neck or back pain. The patient denies lightheadedness or dizziness. The patient does report persistent fatigue. The patient denies nausea or vomiting. The patient denies changes to bowel movements or urination. The patient has had no focal deficits. The patient has had no weakness to the face or extremities. She does endorse perioral, dorsal hand and dorsal foot paresthesias. She does not endorse any swelling to the arms or legs. ROS All systems reviewed and are negative except as per history of present illness. Medications Home Meds Active Scripts Lorazepam* (Lorazepam*) 1 Mg Tablet, 0.5 MG PO Q12 Y for NAUSEA, #30 TAB Prov:SHANNAN FERRER 07/17/17 Ondansetron Hcl* (Zofran*) 8 Mg Tablet, 8 MG PO Q6H Y for NAUSEA AND OR VOMITING , #60 TAB Prov:SHANNAN FERRER 07/17/17 Hydrocodone/Acetaminophen ([place] 10-325 Tablet) 1 Each Tablet, 1 EACH PO Q8 Y for PAIN, #60 TAB Prov:SHANNAN FERRER 07/17/17 Reported Medications Benzonatate* (Benzonatate*) 100 Mg Capsule, 100 MG PO TID Y for COUGH, CAP 08/10/17 Anastrozole* (Arimidex*) 1 Mg Tablet, 1 MG PO DAILY, #30 TAB 08/10/17 Levothyroxine Sodium* (Levothyroxine Sodium*) 50 Mcg Tablet, 50 MCG PO BEFORE BREAKFAST, #30 TAB 07/13/17 Discontinued Reported Medications Anastrozole* (Arimidex*) 1 Mg Tablet, 1 MG PO DAILY, #30 TAB 07/13/17 Discontinued Scripts Prochlorperazine Maleate (Compazine) 10 Mg Tablet, 10 MG PO Q6H Y for NAUSEA AND /OR VOMITING, #30 TAB Prov:SHANNAN FERRER 07/17/17 Allergies Allergies: Coded Allergies: No Known Drug Allergies (Verified Allergy, Unknown, 07/13/17) PMhx/Soc History of Surgery: Yes (LEFT SIDE LUMPECTOMY, ) Anesthesia Reaction: No Hx Neurological Disorder: No Hx Respiratory Disorders: Yes (SOB) Hx Cardiac Disorders: No Hx Psychiatric Problems: No Hx Miscellaneous Medical Probl: No Hx Alcohol Use: No Hx Substance Use: No Hx Tobacco Use: No FmHx Family History: No coronary disease, No diabetes Physical Exam Vitals Vital Signs Date Time Temp Pulse Resp B/P Pulse Ox O2 Delivery O2 Flow Rate FiO2 08/10/17 20:42 95 3.0 08/10/17 18:45 73 16 112/91 97 Nasal Cannula 2.0 08/10/17 18:00 78 23 140/75 97 Nasal Cannula 2.0 08/10/17 18:00 Nasal Cannula 2 08/10/17 17:00 73 21 112/71 93 Room Air 08/10/17 14:47 99.3 84 22 122/69 93 Physical Exam Const: No apparent distress, well-developed, cachectic Head: Normocephalic, Atraumatic Eyes: Normal Conjunctiva. Extraocular movements intact. Pupils equal, round and reactive to light ENT: Normal External Ears, Nose and Mouth. Neck: Full range of motion. No meningismus. Resp: + Bibasilar rales, left worse than right. No wheezes or rhonchi Cardio: Regular rate and rhythm. No murmurs, rubs or gallops Abd: + RUQ Tenderness. Soft, non distended. Normal bowel sounds Skin: No petechiae or rashes Back: No midline tenderness. No CVA tenderness Ext: No cyanosis, or edema, Right arm PICC in place Neur: Awake and alert, oriented 4. Cranial nerves intact. No facial droop. Normal strength, sensation and coordination. Psych: Normal Mood and Affect Result Diagram: 08/10/17 1615 08/10/17 1615 Results 24 hrs Laboratory Tests Test 08/10/17 16:00 08/10/17 16:15 Phosphorus Level 4.3mg/dl Magnesium Level 2.1mg/dl Total Bilirubin 0.3mg/dl Direct Bilirubin 0.00mg/dl Indirect Bilirubin 0.3mg/dl Aspartate Amino Transf (AST/SGOT) 73IU/L Alanine Aminotransferase (ALT/SGPT) 21IU/L Alkaline Phosphatase 101IU/L B-Type Natriuretic Peptide 43PG/ML Total Protein 7.7g/dl Albumin 3.3g/dl White Blood Count 9.710^3/ul Red Blood Count 4.3710^6/ul Hemoglobin 12.8g/dl Hematocrit 38.4% Mean Corpuscular Volume 87.9fl Mean Corpuscular Hemoglobin 29.3pg Mean Corpuscular Hemoglobin Concent 33.3g/dl Red Cell Distribution Width 13.9% Platelet Count 03429^3/UL Mean Platelet Volume 10.4fl Neutrophils % 57.0% Lymphocytes % 29.9% Monocytes % 8.6% Eosinophils % 2.6% Basophils % 1.6% Nucleated Red Blood Cells % 0.0/100WBC Neutrophils # 5.510^3/ul Lymphocytes # 2.910^3/ul Monocytes # 0.810^3/ul Eosinophils # 0.310^3/ul Basophils # 0.210^3/ul Nucleated Red Blood Cells # 0.010^3/ul Prothrombin Time 14.1Sec Prothrombin Time Ratio 1.1 INR International Normalized Ratio 1.09 Activated Partial Thromboplast Time 34.9Sec Sodium Level 141mmol/L Potassium Level 4.1mmol/L Chloride Level 106mmol/L Carbon Dioxide Level 28mmol/L Anion Gap 11 Blood Urea Nitrogen 7mg/dl Creatinine 0.52mg/dl Glucose Level 118mg/dl Calcium Level 9.0mg/dl Troponin I < 0.012ng/ml Current Medications Medications (Trade) Dose Ordered Sig/Feroz Route PRN Reason Start Time Stop Time Status Last Admin Dose Admin Morphine Sulfate (morphine) 4 mg ONCE STAT IV 08/10/17 19:02 08/10/17 19:03 DC 08/10/17 19:06 IV Flush 10 ml 10 ml STK-MED ONCE .ROUTE 08/10/17 19:54 08/10/17 19:55 DC 08/10/17 20:23 Sodium Chloride 100 ml @ ud STK-MED ONCE .ROUTE 08/10/17 19:54 08/10/17 19:55 DC 08/10/17 20:23 Iohexol (Omnipaque) 100 ml @ ud STK-MED ONCE .ROUTE 08/10/17 19:54 08/10/17 19:55 DC 08/10/17 20:23 Ondansetron HCl (Zofran Inj) 4 mg ONCE STAT IV 08/10/17 20:26 08/10/17 20:27 DC 08/10/17 20:59 Procedures/[facility] MDM The patient's presentation warrants further investigation. The patient presents with progressive worsening shortness of breath. Patient also endorses some mild chest tightness as well. She reports that this is happened in the past and she is required paracenteses related to worsening pleural effusions. She is concerned about this today. This will be further evaluated in the emergency department. The patient is hypoxic and does have a history of cancer. There is a possibility of pulmonary embolism if no other etiologies presented self. I will obtain a chest x-ray to evaluate for pleural effusions. If her lungs are relatively clear, we will proceed with CTA to evaluate for pulmonary embolism. We also obtain blood work and an EKG to evaluate for any metabolic or cardiac etiologies. LABS The patient's blood work was obtained and reviewed. The patient's CBC shows no leukocytosis and no left shift. She is not neutropenic. The patient is afebrile and does not appear systemically ill. I do not suspect a systemic infection. The patient is not anemic today. The patient's platelet count is unremarkable. The patient's CMP shows no signs of metabolic or electrolyte emergencies. The patient has unremarkable renal and hepatic function testing. The patient's troponin is negative. The patient's BNP is within normal limits. EKG EKG read by me: Rate/Rhythm: Regular rate and rhythm at a rate of 82 Intervals: Normal [place]: Normal Nonspecific authorization abnormality in the anterior leads, no ST or T-wave changes concerning for acute coronary syndrome Impression: No evidence of acute ischemia or arrhythmia IMAGING CXR reviewed from today 1. Stable mild cardiomegaly and an sclerotic aortic calcification. 2. Improving bilateral perihilar ground-glass edema/infiltrates. 3. Stable trace bilateral pleural effusions Electronically viewed and signed by .Papito Putnam MD, MD on 08/10/2017 17:02 CTA Chest reviewed from today 1. No evidence of large or central pulmonary emboli. 2. No aortic aneurysm or dissection. 3. Large bilateral pleural effusions right greater than left. There is associated bilateral lower lung compressive atelectasis and volume loss. 4. Stable mild cardiomegaly. There is slight perivascular haziness which may suggest component of CHF 5. Stable prominent number of sub centimeter mediastinal and celiac plexus lymph nodes. This should be followed. Electronically viewed and signed by .Papito Putnam MD, on 08/10/2017 21:04 CT Chest reviewed from 07/13/2017 1. Moderate and small left pleural effusions. 2. Patchy ground-glass opacification of the lungs, possibly representing pulmonary edema, a viral chest infection, or possibly pulmonary lymphoma. 3. Smooth interlobular septal thickening lung apices and bases, possibly representing pulmonary edema or lymphangitic spread of neoplasm. 4. Volume loss and consolidation in the right lower lobe, possibly representing atelectasis, pneumonia, and/or neoplasm. 5. A few mildly prominent anterior and middle mediastinal lymph nodes, nonspecific. 6. Mildly enlarged main pulmonary artery, raising the possibility of pulmonary hypertension. Electronically viewed and signed by .Ras Jaffe MD, on 07/13/2017 20:03 US ABD reviewed from 07/29/2017 Cholelithiasis without evidence of abnormal gallbladder wall thickening to suggest cholecystitis. Normal caliber of the intrahepatic and extrahepatic biliary system. Mildly increased echogenicity of the liver suggestive of hepatic steatosis. Electronically viewed and signed by .William Don MD, on 07/29/2017 17:00 CT Abd/Pelvis reviewed from 07/29/2017 No evidence of urolithiasis, obstructive uropathy, diverticulitis or appendicitis. Small renal cysts. Cholelithiasis in distended gallbladder. No wall thickening or phlegmon. Moderate-sized right pleural effusion with partial right lower lobe collapse. Small left pleural effusion with left basilar atelectasis. Pulmonary vascular congestion. Electronically viewed and signed by .Dilan Mata MD, on 07/29/2017 15: 17 TREATMENT/DISPOSITION The patient's blood work at this time is reassuring. The patient CTA demonstrates metastatic disease with pleural effusions, but the patient is oxygenating 97% on her baseline 2-3 L. In speaking with both the patient's oncologist and primary care doctor, it sounds like everything was approved for her chemotherapy as an outpatient as of today and it should be sent to her home tomorrow. With this information, the patient's primary care physician and oncologist felt that it would be better for the patient to go home today to receive her chemotherapy as an outpatient, as it can be difficult to obtain this chemotherapy agent in the hospital quickly. The patient may require bilateral Pleurx catheters, but referrals will be made to the appropriate people via the primary care physician. At this time, the patient's primary care and oncologist physicians would prefer to manage her as an outpatient. On oxygen, her vital signs are stable. She is not tachycardic. She is oxygenating well on 2 L nasal cannula. At this time, I feel that the patient stable for discharge. The patient will need follow-up with his primary care physician in 2-3 days. The patient will be given strict precautions with which to return to the emergency department. The patient's blood pressure was elevated at greater than 120/80 while in the emergency department. The patient was otherwise stable with no evidence of hypertensive urgency or emergency. The patient will require reevaluation of his blood pressure in 2-3 days, but this may be completed by a primary care physician as an outpatient. He does not require admission for blood pressure control. Departure Diagnosis: Primary Impression: Shortness of breath Additional Impressions: Pleural effusion Fatigue Fatigue type: chronic, unspecified Qualified Code: R53.82 - Chronic fatigue Condition: Stable TOM LEMON MD Aug 10, 2017 16:31
[2017-08-10 16:40] LABS: BASOPHIL # 0.2 10^3/ul (0.0-0.1); BASOPHILS % 1.6 % (0.0-2.0); EOSINOPHILS # 0.3 10^3/ul (0.0-0.5); EOSINOPHILS % 2.6 % (0.0-7.0); HEMATOCRIT 38.4 % (37.0-47.0); HEMOGLOBIN 12.8 g/dl (12.0-16.0); LYMPHOCYTES # 2.9 10^3/ul (0.8-2.9); LYMPHOCYTES % 29.9 % (15.0-51.0); MEAN CORPUSCULAR HEMOGLOBIN 29.3 pg (29.0-33.0); MEAN CORPUSCULAR HGB CONC 33.3 g/dl (32.0-37.0); MEAN CORPUSCULAR VOLUME 87.9 fl (82.0-101.0); MEAN PLATELET VOLUME 10.4 fl (7.4-10.4); MONOCYTE # 0.8 10^3/ul (0.3-0.9); MONOCYTES % 8.6 % (0.0-11.0); NEUTROPHIL # 5.5 10^3/ul (1.6-7.5); PLATELET COUNT 242 10^3/UL (140-415); RED BLOOD COUNT 4.37 10^6/ul (4.20-5.40); RED CELL DISTRIBUTION WIDTH 13.9 % (11.5-14.5); WHITE BLOOD COUNT 9.7 10^3/ul (4.8-10.8)
[2017-08-10 16:50] LABS: INR 1.09; PROTIME 14.1 Sec (12.2-14.2); PT RATIO 1.1
[2017-08-10 16:51] LABS: ANION GAP 11 (8-16); BLOOD UREA NITROGEN 7 mg/dl (7-20); CARBON DIOXIDE 28 mmol/L (21-31); CHLORIDE 106 mmol/L (97-110); CREATININE 0.52 mg/dl (0.44-1.00); GLUCOSE 118 mg/dl (70-220); PARTIAL THROMBOPLASTIN TIME 34.9 Sec (25.0-35.0); POTASSIUM 4.1 mmol/L (3.5-5.1); SODIUM 141 mmol/L (135-144)
--- NOTE | 2017-08-10 17:03 | RADRPT ---
PROCEDURE: Chest x-ray CLINICAL INDICATION: Shortness of breath TECHNIQUE: Chest single view COMPARISON: 07/30/2017 FINDINGS: There is stable moderate cardiomegaly and an sclerotic aortic calcification. There is improving bila teral perihilar ground-glass infiltrates/edema. Small bilateral pleural effusions are noted. Bones a re osteopenic. There is surgical clips in the left axilla IMPRESSION: 1. Stable mild cardiomegaly and an sclerotic aortic calcification. 2. Improving bilateral perihilar ground-glass edema/infiltrates. 3. Stable trace bilateral pleural effusions RPTAT: HH .Papito Putnam MD, MD Date Time Electronically viewed and signed by .Papito Putnam MD, on 08/10/2017 17:02 .W/
[2017-08-10 17:08] LABS: TROPONIN-I < 0.012 ng/ml (0.00-0.12)
[2017-08-10 17:29] LABS: MAGNESIUM 2.1 mg/dl (1.7-2.5); PHOSPHORUS 4.3 mg/dl (2.5-4.9)
[2017-08-10 18:09] LABS: ALBUMIN 3.3 g/dl (3.3-4.9); BILIRUBIN,INDIRECT 0.3 mg/dl (0-1.1); BILIRUBIN,TOTAL 0.3 mg/dl (0.2-1.3); TOTAL PROTEIN 7.7 g/dl (6.1-8.1)
[2017-08-10] MEDS ORDERED: morphine 4 MG/ML VIAL IV STA (19:02)
[2017-08-10] MEDS ORDERED: IOHEXOL 100 ML ONE (19:54)
[2017-08-10] MEDS ORDERED: SOD CHLORIDE 0.9% 100 ML ONE (19:54)
[2017-08-10] MEDS ORDERED: ONDANSETRON 4 MG INJ IV STA (20:26)
--- NOTE | 2017-08-10 21:04 | RADRPT ---
PROCEDURE: CTA Chest. CLINICAL INDICATION: Chest pain and shortness of breath TECHNIQUE: Continues 1.25 mm axial images were obtained from lung apices to the domes of diaphragm s following intravenous injection of 80 cc of Isovue 370. Images reconstructed in coronal, sagittal , and 3-D format using maximum intensity projection technique.. The calculated dose length product ( DLP) = 385.57 mGy-cm. The CTDlvol = 10.08 mGy. One or more of the following dose reduction techniqu es were used: Automated exposure control, adjustment of the mA and or KV according to patient size, or use of iterative reconstruction technique. COMPARISON: 07/13/2017 FINDINGS: Images through the pulmonary arteries demonstrates no evidence of large or central pulmonary emboli. The ascending and descending thoracic aorta are normal in caliber without aneurysmal dilatation or dissection. There is a bovine branching anatomy of the great vessels. A right arm PICC line is seen. Heart chambers are mildly enlarged in size. There is no pericardial effusion. There are stable numb er of sub centimeter supine mediastinal right paratracheal lymph nodes. No new pathologic adenopathy is seen. Evaluation of the lung jenkins demonstrates large right moderate left pleural effusion. Left effusion has increased from prior examination. There is associated lower lobe compressive atelectasis and vo lume loss. There is slight prominence and haziness in the perivascular area which may suggest compon ent of interstitial edema. There is linear patchy atelectasis in both upper lobes. No obvious domina nt lung nodules/masses seen. The bronchi are normal in caliber. No destructive bony lesions are noted. Images through the upper abdomen demonstrate prominent number of sub centimeter celiac plexus lymph nodes. IMPRESSION: 1. No evidence of large or central pulmonary emboli. 2. No aortic aneurysm or dissection. 3. Large bilateral pleural effusions right greater than left. There is associated bilateral lower l venice compressive atelectasis and volume loss. 4. Stable mild cardiomegaly. There is slight perivascular haziness which may suggest component of C HF 5. Stable prominent number of sub centimeter mediastinal and celiac plexus lymph nodes. This should be followed. RPTAT: HH .Papito Putnam MD, MD Date Time Electronically viewed and signed by .Papito Putnam MD, on 08/10/2017 21:04 .W/
[2017-08-10] MEDS ORDERED: ANAS1TAB PO (21:25)
[2017-08-10] MEDS ORDERED: BENZ-5 PO (21:26)
[2017-08-10 22:06] VITALS: BP 144/77; PULSE 75; RESP 20
== END 2017-08-10 22:45 | disposition home or self-care (01) ==
LOC: E/R 14:44
DX: J90 Pleural effusion, not elsewhere classified (principal); R53.82 Chronic fatigue, unspecified; R40.2142 Coma scale, eyes open, spontaneous, at arrival to emergency department; R40.2252 Coma scale, best verbal response, oriented, at arrival to emergency department; R40.2362 Coma scale, best motor response, obeys commands, at arrival to emergency department
CPT/HCPCS: 36415; 71010; 71275; 80048; 80076; 83735; 83880; 84100; 84484; 85025; 85610; 85730; 96374; 96375; 99285; J2270; J2405; Q9967

== ENCOUNTER 2017-08-19 11:00 | Inpatient (IN) | payer OTHER ==
[~2017-08-19] VITALS: Ht 162.6 cm; Wt 54.9 kg
[~2017-08-19 11:00] MED LIST changes: +BENZ-5 PO; -PROC10TA PO
[2017-08-19 11:30] LABS: BASOPHILS % 0.6 % (0.0-2.0); EOSINOPHILS # 0.7 10^3/ul (0.0-0.5); EOSINOPHILS % 11.3 % (0.0-7.0); HEMOGLOBIN 12.9 g/dl (12.0-16.0); LYMPHOCYTES % 31.7 % (15.0-51.0); MEAN CORPUSCULAR HEMOGLOBIN 29.1 pg (29.0-33.0); MEAN CORPUSCULAR HGB CONC 33.1 g/dl (32.0-37.0); MEAN PLATELET VOLUME 9.9 fl (7.4-10.4); MONOCYTE # 0.5 10^3/ul (0.3-0.9); MONOCYTES % 8.1 % (0.0-11.0); NEUTROPHIL # 3.1 10^3/ul (1.6-7.5); NEUTROPHILS % 48.3 % (39.0-77.0); PLATELET COUNT 196 10^3/UL (140-415); RED BLOOD COUNT 4.43 10^6/ul (4.20-5.40); RED CELL DISTRIBUTION WIDTH 14.1 % (11.5-14.5); WHITE BLOOD COUNT 6.4 10^3/ul (4.8-10.8)
[2017-08-19 11:48] LABS: ALANINE AMINOTRANSFERASE 32 IU/L (13-69); ALBUMIN 3.6 g/dl (3.3-4.9); ALBUMIN/GLOBULIN RATIO 0.83; ALKALINE PHOSPHATASE 92 IU/L (42-121); ANION GAP 14 (8-16); ASPARTATE AMINO TRANSFERASE 58 IU/L (15-46); BILIRUBIN,INDIRECT 0.5 mg/dl (0-1.1); BILIRUBIN,TOTAL 0.5 mg/dl (0.2-1.3); BLOOD UREA NITROGEN 7 mg/dl (7-20); CALCIUM 9.2 mg/dl (8.4-10.2); CARBON DIOXIDE 27 mmol/L (21-31); CHLORIDE 105 mmol/L (97-110); CREATININE 0.51 mg/dl (0.44-1.00); GLUCOSE 131 mg/dl (70-220); POTASSIUM 3.5 mmol/L (3.5-5.1); SODIUM 142 mmol/L (135-144); TOTAL PROTEIN 7.9 g/dl (6.1-8.1)
[2017-08-19 11:59] LABS: B-TYPE NATRIURETIC PEPTIDE 45 PG/ML (0-125)
[2017-08-19 12:01] LABS: TROPONIN-I < 0.012 ng/ml (0.00-0.12)
[2017-08-19 12:06] LABS: INR 1.06; PROTIME 13.8 Sec (12.2-14.2); PT RATIO 1.1
[2017-08-19 12:07] LABS: PARTIAL THROMBOPLASTIN TIME 33.3 Sec (25.0-35.0)
[2017-08-19] MEDS ORDERED: IOHEXOL 100 ML ONE (12:13)
[2017-08-19] MEDS ORDERED: SOD CHLORIDE 0.9% 100 ML ONE (12:13)
--- NOTE | 2017-08-19 12:22 | RADRPT ---
PROCEDURE: XR Chest. CLINICAL INDICATION: shortness of breath TECHNIQUE: Single portable view of the chest was obtained COMPARISON: 08/10/2017 FINDINGS: There is mild cardiomegaly. There is mild pulmonary vascular congestion. There are bilateral perihilar and lower lobe infiltrat es. There is a moderate right pleural effusion and a small left pleural effusion.. There is a right-sided PICC line with its tip overlying the low right atrium There is no pneumothorax. The bones and soft tissues are unremarkable. RPTAT: AA IMPRESSION: Mild cardiomegaly with worsening moderate pulmonary vascular congestion. Moderate right pleural effusion. Right-sided PICC line overlying the low right atrium. Retraction of 5 cm is recommended. .Orion Kenyon MD, MD Date Time Electronically viewed and signed by .Orion Kenyon MD, on 08/19/2017 12:22 .S/
--- NOTE | 2017-08-19 14:05 | RADRPT ---
PROCEDURE: CTA Chest and pulmonary angiogram. CLINICAL INDICATION: Chest pain and shortness of breath. TECHNIQUE: CT scan of the chest and CT pulmonary angiogram was performed on a multidetector high-r [employer] CT scanner. High-resolution thin slice 2D coronal and sagittal imaging was obtained from the axial source images. Post processed 3-D images were not acquired. The patient was examined foll owing the uncomplicated intravenous administration of 90 cc of Omnipaque-350. DICOM images are avail able. The images were reviewed on a high-resolution PACS workstation. One or more of the following d ose reduction techniques were used: Automated exposure control, adjustment of the mA and/or kV acco rding to patient size and use of iterative reconstruction technique. The total exam CTDI equals 37 mGy and the total exam DLP equals 403 mGy-cm. COMPARISON: 08/10/2017 FINDINGS: CT chest: Right-sided PICC line is seen terminating 2 cm into the right atrium There are moderate-sized bilateral pleural effusions, unchanged from previous exam. There is a moderate consolidation in bilateral lung bases with air bronchograms which may represent compressive atelectasis or infiltrate. The central tracheobronchial tree is clear. The mediastinum is unremarkable without evidence for mass or lymphadenopathy. The heart size is large without pericardial thickening or effusion. The axillary, subpectoral, and supraclavicular regions are unremarkable. Imaging of the upper abdomen shows no acute abnormality. 6 mm low density exophytic focus in the upper pole of left kidney is too small to characterize by CT criteria, but statistically likely represents a cyst. The chest wall structures are unremarkable. The osseous structures are remarkable for degenerative spondylosis of the spine. CT angiogram: The aorta is normal in caliber and configuration. There is no evidence of aortic aneurysm or dissection. There are mild coronary and aortic atherosclerotic calcifications. No pulmonary artery filling defect is present to suggest pulmonary embolism. No adherent thrombus or pulmonary web is identified. Main pulmonary artery measures 34 mm suggesting pulmonary artery hypertension. Contrast is seen refluxing into the inferior vena cava suggesting right heart failure. IMPRESSION: 1. No evidence of pulmonary embolism, aortic aneurysm or dissection. 2. Dilated main pulmonary artery, consistent with pulmonary artery hypertension. 3. Evidence of congestive heart failure with cardiomegaly, moderate-sized bilateral pleural effusio ns, pulmonary vascular congestion, pulmonary edema and reflux of contrast into the inferior vena cav a. Findings are unchanged from previous exam. 4. Bibasilar consolidation with air bronchograms. Findings may represent compressive atelectasis or pneumonia and are unchanged from previous exam. RPTAT: HLDM .Elpidio Granado MD, Date Time Electronically viewed and signed by .Elpidio Granado MD, MD on 08/19/2017 14:05 .M/
[2017-08-19] MEDS ORDERED: FUROSEMIDE 20 MG INJ IV ONE (14:30)
--- NOTE | 2017-08-19 14:45 | ERD ---
ER Documentation Chief Complaint Chief Complaint SOB SINCE THIS MORNING, CHEST PAIN ON HER WAY TO HOSPITAL HPI This is a 71-year-old female. Family helps interpret. The patient has a history of metastatic breast CA on chemotherapy last chemotherapy was 3 weeks ago. She presents with shortness of breath. This is been a progressive issue for the patient over the last several weeks. She denies any significant chest pain or pressure, no pleuritic pain no fevers or chills. She states the shortness of breath is worse with laying flat. She has a recent visit to the emergency room during which time she had a negative CT PE workup. She has bilateral pleural effusions. ROS All systems reviewed and are negative except as per history of present illness. Medications Home Meds Reported Medications Anastrozole* (Arimidex*) 1 Mg Tablet, 1 MG PO DAILY, #30 TAB 08/10/17 Levothyroxine Sodium* (Levothyroxine Sodium*) 50 Mcg Tablet, 50 MCG PO BEFORE BREAKFAST, #30 TAB 07/13/17 Discontinued Reported Medications Benzonatate* (Benzonatate*) 100 Mg Capsule, 100 MG PO TID Y for COUGH, CAP 08/10/17 Discontinued Scripts Lorazepam* (Lorazepam*) 1 Mg Tablet, 0.5 MG PO Q12 Y for NAUSEA, #30 TAB Prov:SHANNAN FERRER 07/17/17 Ondansetron Hcl* (Zofran*) 8 Mg Tablet, 8 MG PO Q6H Y for NAUSEA AND OR VOMITING , #60 TAB Prov:SHANNAN FERRER 07/17/17 Hydrocodone/Acetaminophen ([place] 10-325 Tablet) 1 Each Tablet, 1 EACH PO Q8 Y for PAIN, #60 TAB Prov:SHANNAN FERRER 07/17/17 Allergies Allergies: Coded Allergies: No Known Drug Allergies (Verified Allergy, Unknown, 07/13/17) PMhx/Soc History of Surgery: Yes (LEFT PARTIAL MASTECTOMY 2011, THORATENCISIS) Anesthesia Reaction: No Hx Neurological Disorder: No Hx Respiratory Disorders: No Hx Cardiac Disorders: Yes (HTN) Hx Psychiatric Problems: No Hx Miscellaneous Medical Probl: Yes (BREAST CA WITH METASTASIS, ARTHRITIS) Hx Alcohol Use: No Hx Substance Use: No Hx Tobacco Use: Yes Smoking Status: Former smoker FmHx Family History: No diabetes Physical Exam Vitals Vital Signs Date Time Temp Pulse Resp B/P Pulse Ox O2 Delivery O2 Flow Rate FiO2 08/19/17 12:42 66 18 125/76 97 Nasal Cannula 2.0 08/19/17 11:05 Nasal Cannula 2 08/19/17 11:05 Nasal Cannula 2.0 08/19/17 11:05 98.4 66 22 127/64 96 Physical Exam General: Well developed, well nourished, no acute distress Head: Normocephalic, atraumatic. Eyes: Pupils equally reactive, EOM intact ENT: Moist mucous membranes Neck: Supple, no lymphadenopathy Respiratory: Rales at the bases bilaterally, no increased work of breathing Cardiovascular: RRR, no murmurs, rubs, or gallops Abdominal: Soft, non-tender, non-distended, no peritoneal signs : Deferred MSK: No edema, no unilateral swelling, 5/5 strength Neurologic: Alert and oriented, moving all extremities, normal speech, no focal weakness, no cerebellar signs Skin: No rash Psych: Normal mood Result Diagram: 08/19/17 1120 08/19/17 1120 Results 24 hrs Laboratory Tests Test 08/19/17 11:20 White Blood Count 6.410^3/ul Red Blood Count 4.4310^6/ul Hemoglobin 12.9g/dl Hematocrit 39.0% Mean Corpuscular Volume 88.0fl Mean Corpuscular Hemoglobin 29.1pg Mean Corpuscular Hemoglobin Concent 33.1g/dl Red Cell Distribution Width 14.1% Platelet Count 63104^3/UL Mean Platelet Volume 9.9fl Neutrophils % 48.3% Lymphocytes % 31.7% Monocytes % 8.1% Eosinophils % 11.3% Basophils % 0.6% Nucleated Red Blood Cells % 0.0/100WBC Neutrophils # 3.110^3/ul Lymphocytes # 2.010^3/ul Monocytes # 0.510^3/ul Eosinophils # 0.710^3/ul Basophils # 0.010^3/ul Nucleated Red Blood Cells # 0.010^3/ul Prothrombin Time 13.8Sec Prothrombin Time Ratio 1.1 INR International Normalized Ratio 1.06 Activated Partial Thromboplast Time 33.3Sec Sodium Level 142mmol/L Potassium Level 3.5mmol/L Chloride Level 105mmol/L Carbon Dioxide Level 27mmol/L Anion Gap 14 Blood Urea Nitrogen 7mg/dl Creatinine 0.51mg/dl Glucose Level 131mg/dl Calcium Level 9.2mg/dl Total Bilirubin 0.5mg/dl Direct Bilirubin 0.00mg/dl Indirect Bilirubin 0.5mg/dl Aspartate Amino Transf (AST/SGOT) 58IU/L Alanine Aminotransferase (ALT/SGPT) 32IU/L Alkaline Phosphatase 92IU/L Troponin I < 0.012ng/ml B-Type Natriuretic Peptide 45PG/ML Total Protein 7.9g/dl Albumin 3.6g/dl Globulin 4.30g/dl Albumin/Globulin Ratio 0.83 Current Medications Medications (Trade) Dose Ordered Sig/Feroz Route PRN Reason Start Time Stop Time Status Last Admin Dose Admin IV Flush 10 ml 10 ml STK-MED ONCE .ROUTE 08/19/17 12:13 08/19/17 12:14 DC 08/19/17 12:15 Sodium Chloride 100 ml @ ud STK-MED ONCE .ROUTE 08/19/17 12:13 08/19/17 12:14 DC 08/19/17 12:15 Iohexol (Omnipaque) 100 ml @ ud STK-MED ONCE .ROUTE 08/19/17 12:13 08/19/17 12:14 DC 08/19/17 12:15 Furosemide (Lasix) 20 mg ONCE ONCE IV 08/19/17 14:30 08/19/17 14:31 DC 08/19/17 14:26 Procedures/MDM EKG, MONITORS, & DIAGNOSTIC IMAGING: EKG: I reviewed and interpreted a 12-lead EKG. Rhythm: Normal sinus rhythm Ectopy: None Intervals: No abnormalities ST segments: No elevations or depressions T waves: No contiguous inversions Chest x-ray IMPRESSION: Mild cardiomegaly with worsening moderate pulmonary vascular congestion. Moderate right pleural effusion. Right-sided PICC line overlying the low right atrium. Retraction of 5 cm is recommended. CTPA IMPRESSION: 1. No evidence of pulmonary embolism, aortic aneurysm or dissection. 2. Dilated main pulmonary artery, consistent with pulmonary artery hypertension. 3. Evidence of congestive heart failure with cardiomegaly, moderate-sized bilateral pleural effusions, pulmonary vascular congestion, pulmonary edema and reflux of contrast into the inferior vena cava. Findings are unchanged from previous exam. 4. Bibasilar consolidation with air bronchograms. Findings may represent compressive atelectasis or pneumonia and are unchanged from previous exam. RPTAT: HLDM LAB INTERPRETATION: No leukocytosis, negative troponin MEDICAL DECISION MAKING: Patient has metastatic breast cancer with known bilateral pleural effusions. Her shortness of breath today is most consistent with progression or persistence of bilateral pleural effusions. The patient is also at risk for pulmonary embolism and will benefit from CTPA despite negative recent study. No signs or symptoms concerning for pneumonia, pneumothorax, dissection or acute coronary syndrome. ER COURSE: The patient's laboratory testing and diagnostic imaging are grossly unchanged. No evidence of pulmonary embolism. The patient has persistent pulmonary edema and bilateral pleural effusions. I had a goals of care conversation with the patient and family member. The family feels uncomfortable caring for the patient at home. It appears at this point the patient's shortness of breath and pleural effusions are affecting her activities of daily living. Because of the patient's multiple recent visits I would recommend hospitalization. She was given 20 mg of Lasix for diuresis. The patient may benefit from further conversations about palliation. Consider palliative thoracentesis versus VATS. I kept the patient and/or family informed of laboratory and diagnostic imaging results throughout the emergency room course. DISPOSITION PLAN: Medical surgical admission CONSULTATION: Accepting care team and consultations: I discussed the current laboratory data, diagnostic imaging and emergency care provided. Admitting team: Pending admitting team at this time, primary care physician Dr. Aquino recommends going through insurance Admitting team indication: Insurance directed Consulting services: Heme Onc Dr. briceño notified. Departure Diagnosis: Primary Impression: Metastatic breast cancer Additional Impressions: Bilateral pleural effusion Pulmonary edema Chronicity: chronic Qualified Code: J81.1 - Chronic pulmonary edema Condition: Stable QASIM RODAS MD Aug 19, 2017 14:45
[2017-08-19] MEDS ORDERED: HYDROmorphONE 0.5 MG/0.5 ML SYG IV STA (15:14)
[2017-08-19] MEDS ORDERED: ONDANSETRON 4 MG INJ IV STA (16:11)
[2017-08-19 17:59] LABS: CREATINE KINASE 54 IU/L (23-200)
[2017-08-19 18:09] LABS: CK-MB 0.51 ng/ml (0.0-2.4)
[2017-08-19 18:13] LABS: TROPONIN-I < 0.012 ng/ml (0.00-0.12)
--- NOTE | 2017-08-19 19:07 | EN ---
Date/Time of Note Date/Time of Note DATE: 08/19/17 TIME: 19:06 ER Progress Note Observation Note: Time: 4 hour Family Hx: No Hypertension Evaluation: Multiple exams showed improving symptoms and no evidence of clinical deterioration I discussed the findings with the patient. I discussed the patient with the on- call hospitalist Dr. Reyna at 7 PM who was made aware of the lab, the treatment, the patient condition. The patient is admitted to telemetry JESÚS YORK MD Aug 19, 2017 19:07
[2017-08-19 20:23] VITALS: PULSE 69
[2017-08-19 20:26] VITALS: BP 144/70; PULSE 70; RESP 22
[2017-08-19 20:52] VITALS: Ht 162.6 cm; Wt 54.9 kg
[2017-08-19] MEDS ORDERED: morphine 2 MG INJ IV PRN (21:02)
[2017-08-19 21:26] VITALS: BP 144/70; RESP 16
[2017-08-19] MEDS: ONDANSETRON 4 MG INJ IV PRN (21:36)
[2017-08-19] MEDS ORDERED: HYDROCODONE/APAP (5/325) TAB PO PRN (23:05)
[2017-08-19] MEDS: morphine 2 MG INJ IV PRN (23:20)
[2017-08-19 23:45] LABS: CREATINE KINASE 49 IU/L (23-200)
[2017-08-19 23:56] LABS: CK-MB 0.49 ng/ml (0.0-2.4)
[2017-08-19 23:59] LABS: TROPONIN-I < 0.012 ng/ml (0.00-0.12)
[2017-08-20] VITALS (13 sets, daily range): BP systolic 95–140; BP diastolic 58–78; PULSE 63–78; RESP 16–18
[2017-08-20] MEDS: morphine 2 MG INJ IV PRN ×6 (02:54→21:04)
[2017-08-20] MEDS: ALBUTEROL/IPRATROPIUM (NEB) 3 ML AMP HHN SCH ×6 (05:00→20:07)
[2017-08-20] MEDS: LEVOTHYROXINE 50 MCG TAB PO SCH (07:19)
[2017-08-20 08:30] LABS: BASOPHIL # 0.1 10^3/ul (0.0-0.1); BASOPHILS % 0.9 % (0.0-2.0); EOSINOPHILS # 0.7 10^3/ul (0.0-0.5); EOSINOPHILS % 8.9 % (0.0-7.0); HEMATOCRIT 40.7 % (37.0-47.0); HEMOGLOBIN 13.3 g/dl (12.0-16.0); LYMPHOCYTES # 2.4 10^3/ul (0.8-2.9); LYMPHOCYTES % 29.3 % (15.0-51.0); MEAN CORPUSCULAR HEMOGLOBIN 28.9 pg (29.0-33.0); MEAN CORPUSCULAR HGB CONC 32.7 g/dl (32.0-37.0); MEAN CORPUSCULAR VOLUME 88.3 fl (82.0-101.0); MONOCYTE # 0.7 10^3/ul (0.3-0.9); MONOCYTES % 8.6 % (0.0-11.0); NEUTROPHIL # 4.2 10^3/ul (1.6-7.5); NEUTROPHILS % 52.1 % (39.0-77.0); PLATELET COUNT 210 10^3/UL (140-415); RED BLOOD COUNT 4.61 10^6/ul (4.20-5.40); RED CELL DISTRIBUTION WIDTH 14.6 % (11.5-14.5); WHITE BLOOD COUNT 8.1 10^3/ul (4.8-10.8)
[2017-08-20 08:59] LABS: CALCIUM 9.6 mg/dl (8.4-10.2); CREATININE 0.61 mg/dl (0.44-1.00); MAGNESIUM 2.1 mg/dl (1.7-2.5); POTASSIUM 3.7 mmol/L (3.5-5.1)
[2017-08-20] MEDS: ENOXAPARIN 40 MG/0.4 ML SYG SC SCH (10:55)
[2017-08-20] MEDS: FUROSEMIDE 40 MG INJ IV SCH (10:57)
[2017-08-20] MEDS: ANASTROZOLE 1 MG TAB PO SCH (11:08)
--- NOTE | 2017-08-20 14:49 | RADRPT ---
PROCEDURE: XR Chest. CLINICAL INDICATION: Status post right thoracentesis . TECHNIQUE: Single frontal chest x-ray. COMPARISON: 08/19/2017 FINDINGS: There is markedly decreased right pleural effusion following right thoracentesis without evidence of pneumothorax. Residual bibasilar atelectasis and small effusions remain. There is a right arm PICC line in place unchanged. Calcific atherosclerosis of the aorta is present... The cardiomediastinal silhouette is unremarkable. The osseous structures are intact. IMPRESSION: Decreased right pleural effusion following thoracentesis without evidence of pneumothorax. Residual bibasilar atelectasis and small pleural effusions. Right arm PICC line in place.. RPTAT: QQ .Fermin Elliott MD, MD Date Time Electronically viewed and signed by .Fermin Elliott MD, on 08/20/2017 14:49 .L/
[2017-08-20] MEDS ORDERED: LIDOCAINE 1% (MPF) 5 ML VIAL ONE (14:53)
--- NOTE | 2017-08-20 14:54 | RADRPT ---
PROCEDURE: US guided thoracentesis CLINICAL INDICATION: history of metastatic breast cancer. Right pleural effusion. TECHNIQUE: The patient's son was informed of the benefits and risks of the procedure and signed co nsent was obtained. Risks include bleeding, infection, pneumothorax. The chest was sterilely pre pped and draped and local anesthesia with 1% lidocaine was administered. The patient was placed in upright sitting position on bed. Under ultrasound guidance, a 19-gauge [employer] multi side-hole centesis needle and sheath was advanced into the pleural fluid. Approximately [address] cc of [address]anguineous pl eural fluid was aspirated by vacuum. The patient tolerated procedure well and there were no complic ations. Patient left department in stable condition. Postprocedural chest x-ray to follow. COMPARISON: None FINDINGS: Initial localizing sonogram of the chest shows the pleural effusion. IMPRESSION: US-guided right thoracentesis yielding 1000 cc of serosanguineous pleural fluid. RPTAT: QQ .Fermin Elliott MD, MD Date Time Electronically viewed and signed by .Fermin Elliott MD, on 08/20/2017 14:53 .L/
[2017-08-20] MEDS: ONDANSETRON 4 MG INJ IV PRN ×2 (15:11→22:42)
--- NOTE | 2017-08-20 16:17 | HP ---
Date/Time of Note Date/Time of Note DATE: 08/20/17 TIME: 16:12 Assessment/Plan VTE Prophylaxis VTE Prophylaxis Intervention: LMWH Lines/Catheters Urinary Cath still in place: No Assessment/Plan Chief Complaint/Hosp Course 1. Acute respiratory failure secondary to persistent pleural effusions from metastatic breast cancer Patient does have a history of thoracentesis in the past Have ordered another ultrasound-guided thoracentesis for therapeutic fluid removal Anticipate frequency of pleural effusions to decrease as she continues more cycles of chemotherapy If patient is saturating well tomorrow after therapeutic thoracentesis today then anticipate DC back home Patient to follow-up with oncology as an outpatient Continue Arimidex 2. Hypothyroidism Continue home meds Prophylaxis: Lovenox Problems: HPI/ROS Admit Date/Time Admit Date/Time Aug 19, 2017 at 19:01 Hx of Present Illness Patient is a 71-year-old female with history of hypothyroidism and metastatic breast cancer with pleural metastasis and persistent malignant pleural effusions. Patient is now status post 2 rounds of chemotherapy and is scheduled to receive a third round the coming week. Patient presents once again with shortness of breath secondary to pleural effusions. Patient has no other acute complaints at this time. ROS Constitutional: improved, no complaints Eyes: no complaints ENT: no complaints Respiratory: shortness of breath Cardiovascular: no complaints Gastrointestinal: no complaints Genitourinary: no complaints Musculoskeletal: no complaints Skin: no complaints Neurologic: no complaints Endocrine: no complaints Lymphatic: no complaints Psychological: nl mood/affect, no complaints Immunologic: no complaints PMH/Family/Social Past Medical History As per HPI Social History Alcohol Use: none Smoking Status: Never smoker Drug Use: none Exam/Review of Systems Vital Signs Vitals Vital Signs Date Time Temp Pulse Resp B/P Pulse Ox O2 Delivery O2 Flow Rate FiO2 08/20/17 13:19 68 20 96 Nasal Cannula 3.0 08/20/17 12:06 98.0 124/65 Intake and Output 08/19/17 08/19/17 08/20/17 15:00 23:00 07:00 Intake Total 250 ml Balance 250 ml Exam Constitutional: alert Head: normocephalic Respiratory: diminished breath sounds Cardiovascular: regular rate and rhythm Gastrointestinal: soft, No distended Musculoskeletal: nl extremities to inspection Labs Result Diagram: 08/20/17 0714 08/20/17 0714 Medications Medications Current Medications Ondansetron HCl (Zofran Inj) 4 mg Q4H PRN IV NAUSEA AND/OR VOMITING Last administered on 08/20/17 15:11; Admin Dose 4 MG; Start 08/19/17 at 21:32 Morphine Sulfate (morphine) 2 mg Q3H PRN IV pain Last administered on 15:05; Admin Dose 2 MG; Start 08/19/17 at 23:30 Acetaminophen/ Hydrocodone Bitart ([place] (5/325)) 1 tab Q4H PRN PO PAIN; Start 08/19/17 at 23:05 Anastrozole (Arimidex) 1 mg DAILY PO Last administered on 08/20/17 11:08; Admin Dose 1 MG; Start 08/20/17 at 09:00 Levothyroxine Sodium (Synthroid) 50 mcg DAILY@06 PO Last administered on 07:19; Admin Dose 50 MCG; Start 08/20/17 at 06:00 Furosemide (Lasix) 40 mg DAILY IV Last administered on 08/20/17 10:57; Admin Dose 40 MG; Start 08/20/17 at 09:00 Enoxaparin Sodium (Lovenox) 40 mg DAILY SC ; Start 08/20/17 at 09:00 SARITA JC Aug 20, 2017 16:16
[2017-08-20] MEDS ORDERED: ONDANSETRON 4 MG INJ IV STA (18:20)
[2017-08-20] MEDS ORDERED: ALBUTEROL/IPRATROPIUM (NEB) 3 ML AMP HHN SCH (22:00)
[2017-08-20] MEDS: ZOLPIDEM 5 MG TAB PO PRN (22:40)
[2017-08-21] VITALS (10 sets, daily range): BP systolic 118–144; BP diastolic 58–65; PULSE 86–97; RESP 16–18
[2017-08-21] MEDS: ALBUTEROL/IPRATROPIUM (NEB) 3 ML AMP HHN SCH ×6 (01:23→20:25)
[2017-08-21] MEDS: morphine 2 MG INJ IV PRN ×2 (05:46→11:32)
[2017-08-21] MEDS: ONDANSETRON 4 MG INJ IV PRN ×3 (05:46→17:00)
[2017-08-21] MEDS: LEVOTHYROXINE 50 MCG TAB PO SCH (05:46)
--- NOTE | 2017-08-21 08:28 | PN ---
Date/Time of Note Date/Time of Note DATE: 08/21/17 TIME: 08:21 Assessment/Plan VTE Prophylaxis VTE Prophylaxis Intervention: heparin Lines/Catheters IV Catheter Type (from Nrs): PICC Line Central line still needed: No Urinary Cath still in place: No Assessment/Plan Assessment/Plan 1. Acute respiratory failure secondary to persistent pleural effusions from metastatic breast cancer Patient does have a history of thoracentesis in the past, and one liter removed yesterday from right lung. If patient is saturating well tomorrow and toelrating oral diet, then anticipate DC back home for ongoing chemo. Patient to follow-up with oncology as an outpatient Continue Arimidex 2. Hypothyroidism Continue home meds 3. Ensure for nutritional supplementation. Prophylaxis: Lovenox and protonix Subjective 24 Hr Interval Summary Free Text/Dictation The patient is still dry heaving for with drinking fluids. Slightly better with zofran. Drinking some broth, has heaving. She is in constant pain, stating that it is "8 out of 10 at all times." Exam/Review of Systems Vital Signs Vitals Vital Signs Date Time Temp Pulse Resp B/P Pulse Ox O2 Delivery O2 Flow Rate FiO2 08/21/17 08:00 97.5 86 18 133/62 96 08/21/17 07:45 Nasal Cannula 2.0 Intake and Output 08/20/17 08/20/17 08/21/17 15:00 23:00 07:00 Intake Total 700 ml 400 ml Balance 700 ml 400 ml Exam Constitutional: alert, oriented, well developed Head: normocephalic Eyes: nl conjunctiva ENMT: nl external ears & nose Neck: supple Respiratory: clear to auscultation Cardiovascular: regular rate and rhythm Gastrointestinal: non-tender, soft Extremities: normal pulses Results Result Diagram: 08/20/1771308/20/17713 Medications Medications Current Medications Ondansetron HCl (Zofran Inj) 4 mg Q4H PRN IV NAUSEA AND/OR VOMITING Last administered on 08/21/17 05:46; Admin Dose 4 MG; Start 08/19/17 at 21:32 Morphine Sulfate (morphine) 2 mg Q3H PRN IV pain Last administered on 05:46; Admin Dose 2 MG; Start 08/19/17 at 23:30 Acetaminophen/ Hydrocodone Bitart ([place] (5/325)) 1 tab Q4H PRN PO PAIN; Start 08/19/17 at 23:05 Anastrozole (Arimidex) 1 mg DAILY PO Last administered on 08/20/17 11:08; Admin Dose 1 MG; Start 08/20/17 at 09:00 Levothyroxine Sodium (Synthroid) 50 mcg DAILY@06 PO Last administered on 05:46; Admin Dose 50 MCG; Start 08/20/17 at 06:00 Furosemide (Lasix) 40 mg DAILY IV Last administered on 08/20/17 10:57; Admin Dose 40 MG; Start 08/20/17 at 09:00 Enoxaparin Sodium (Lovenox) 40 mg DAILY SC ; Start 08/20/17 at 09:00 Pantoprazole (Protonix Tab) 40 mg DAILY@06 PO ; Start 08/21/17 at 08:30 Morphine Sulfate (Ms Contin (Er)) 15 mg BID PO ; Start 08/21/17 at 09:00; Status STELLA VARMA MD Aug 21, 2017 08:28
[2017-08-21] MEDS: PANTOPRAZOLE (EC) 40 MG TAB PO SCH (08:44)
[2017-08-21] MEDS: FUROSEMIDE 40 MG INJ IV SCH (08:45)
[2017-08-21] MEDS: morphine (ER) 15 MG TAB PO SCH ×2 (08:45→21:05)
[2017-08-21] MEDS: ANASTROZOLE 1 MG TAB PO SCH (08:52)
[2017-08-21] MEDS: ENOXAPARIN 40 MG/0.4 ML SYG SC SCH (08:53)
[2017-08-21 10:05] LABS: CALCIUM 9.1 mg/dl (8.4-10.2); CREATININE 0.59 mg/dl (0.44-1.00); MAGNESIUM 2.1 mg/dl (1.7-2.5); POTASSIUM 3.4 mmol/L (3.5-5.1)
[2017-08-21] MEDS ORDERED: POTASSIUM CHLORIDE (SR) 20 MEQ TAB PO STA (10:16)
[2017-08-21] MEDS ORDERED: BARIUM SULF 2% 450 ML BTL (BERRY SMOOTHIE) PO ONE ×2 (15:00→18:00)
[2017-08-21] MEDS ORDERED: PEG/ELECTROLYTES 4L BTL PO ONE (18:00)
[2017-08-21 19:22] LABS: INR 1.06; PROTIME 13.8 Sec (12.2-14.2); PT RATIO 1.1
[2017-08-21 19:42] LABS: PARTIAL THROMBOPLASTIN TIME 37.8 Sec (25.0-35.0)
--- NOTE | 2017-08-21 20:10 | CONS ---
DATE OF ADMISSION: 08/19/2017 DATE OF CONSULTATION: GASTROINTESTINAL CONSULTATION Dear Dr. Donato: Thank you for asking me to see Ms. Mendez in GI consultation. HISTORY OF PRESENT ILLNESS: The patient is a 71-year-old [place] female admitted to the hospital because of history of abdominal pain and vomiting. She has history of metastatic breast carcinoma. She also has been experiencing shortness of breath for the past several days. She had thoracentesi s of the right pleural effusion has been performed. PAST MEDICAL HISTORY: 1. Positive for metastatic breast cancer. 2. History of hypothyroidism. MEDICATIONS: Prior to the admission, please refer to the chart; but currently she is on medications which include: 1. Potassium chloride. 2. Protonix. 3. Ambien. 4. Zofran. 5. Lovenox. 6. Lasix. 7. Synthroid. 8. Morphine. 9. Revelo. PHYSICAL EXAMINATION: GENERAL: The patient is a 71-year-old [place] female who at this time, she is alert, she is afebr ile, she is thin built. CARDIOVASCULAR: Normal heart sounds. RESPIRATORY: Normal breath sounds. ABDOMEN: Showed unremarkable findings. No distention, no tenderness, no palpable masses. LABORATORY WORKUP: WBC is 8100, hemoglobin is 13.3. The potassium is 3.4, bilirubin 0.5, AST 58, A LT 32, alkaline phosphatase 92. CLINICAL IMPRESSION: 1. The patient presenting with history of abdominal pain and vomiting, rule out peptic ulcer diseas e, gastritis, rule out gastric outlet obstruction, rule out carcinomatosis. 2. History of breast cancer which is metastatic. PLAN: Recommend EGD after the CAT scan of the abdomen is performed. Once again, doctor, thank you for this consultation. Dictated By: BRENT MATUTE/NTS Conf#: [id number] DID#: [id number] CC: STELLA DONATO MD; SHANNAN FERRER MD;*EndCC*
[2017-08-22] VITALS (11 sets, daily range): BP systolic 100–121; BP diastolic 54–77; PULSE 84–94; RESP 17–19
[2017-08-22] MEDS ORDERED: DEXTROSE 5%-0.45% NACL 1,000 ML IV SCH
[2017-08-22] MEDS: ZOLPIDEM 5 MG TAB PO PRN (00:08)
[2017-08-22] MEDS: ALBUTEROL/IPRATROPIUM (NEB) 3 ML AMP HHN SCH ×6 (01:20→20:17)
--- NOTE | 2017-08-22 02:12 | RADRPT ---
PROCEDURE: CT Abdomen and Pelvis without contrast. CLINICAL INDICATION: History of left breast partial mastectomy. Pleural effusion. Vomiting. TECHNIQUE: CT scan of the abdomen and pelvis was performed on a multidetector slice CT scanner. No intravenous contrast material was utilized. 900 cc of Redicat oral contrast material was utilized. S agittal and coronal reformatted images were obtained from the axial source images. Images were revie wed on a high-resolution PACS workstation. Exam CTDlvol = 5.4 mGy and DLP = 291 Gy-cm. One of the [facility] 3 dose reduction techniques were used: Automated exposure control; adjustment of the mA and/ or kV according to patient size; or use of iterative reconstruction technique. DICOM images are av ailable. COMPARISON: CT chest 04/18/2017, CT abdomen and pelvis 07/29/2017. FINDINGS: There is no obstruction or ileus. The appendix is visualized. There is no evidence for appendiciti s.. There is no evidence for diverticulitis. There is no free fluid. The liver is overall normal in size. The liver contour is mildly lobulated. 4.5 mm hypodense lesion right lobe liver, too small to characterize.. There is a punctate calcified gallstone within the gal lbladder. The gallbladder is otherwise normal in appearance. There is no definite biliary ductal dil ation. Pancreas is normal in appearance. The spleen is unremarkable.. There are no adrenal masses. T he aorta is normal caliber. Atherosclerotic vascular calcifications are present. There is 6 mm hyperdense cyst in the midpole of the right kidney. Kidneys are otherwise normal in ap pearance without hydronephrosis, mass or calculus.. Ureters are of normal caliber and without eviden ce for an obstructing calculus. The urinary bladder is contracted.. Uterus unremarkable. The ovaries are not well characterized. Limited evaluation of the lung bases demonstrates moderate bilateral pleural effusions with associat ed atelectasis. Heart is enlarged. There are degenerative changes of the lumbar spine. IMPRESSION: 1. No bowel obstruction or ileus. 2. Redemonstrated cholelithiasis. No CT evidence for acute cholecystitis or biliary obstruction. 3. Mildly lobular liver contour consistent with chronic liver disease. Subcentimeter hypodense lesi on in the right lobe liver too small to characterize. 4. No obstructive uropathy. Small hyperdense cyst in the right kidney. Contracted urinary bladder. 5. Redemonstrated bilateral pleural effusions with a. She did atelectasis and cardiomegaly. 6. Degenerative changes of the lumbar spine. RPTAT: HMVK .Jeff Carolina MD, Date Time Electronically viewed and signed by .Jeff Carolina MD, on 08/22/2017 02:12 .K/
[2017-08-22] MEDS: LEVOTHYROXINE 50 MCG TAB PO SCH (03:15)
[2017-08-22] MEDS: PANTOPRAZOLE (EC) 40 MG TAB PO SCH (03:15)
[2017-08-22 05:49] LABS: BASOPHIL # 0.1 10^3/ul (0.0-0.1); BASOPHILS % 0.7 % (0.0-2.0); EOSINOPHILS # 0.9 10^3/ul (0.0-0.5); EOSINOPHILS % 12.6 % (0.0-7.0); HEMATOCRIT 34.4 % (37.0-47.0); HEMOGLOBIN 11.2 g/dl (12.0-16.0); LYMPHOCYTES # 2.2 10^3/ul (0.8-2.9); LYMPHOCYTES % 31.3 % (15.0-51.0); MEAN CORPUSCULAR HEMOGLOBIN 29.1 pg (29.0-33.0); MEAN CORPUSCULAR HGB CONC 32.6 g/dl (32.0-37.0); MEAN CORPUSCULAR VOLUME 89.4 fl (82.0-101.0); MEAN PLATELET VOLUME 10.6 fl (7.4-10.4); MONOCYTE # 0.7 10^3/ul (0.3-0.9); MONOCYTES % 9.6 % (0.0-11.0); NEUTROPHIL # 3.2 10^3/ul (1.6-7.5); NEUTROPHILS % 45.8 % (39.0-77.0); PLATELET COUNT 163 10^3/UL (140-415); RED BLOOD COUNT 3.85 10^6/ul (4.20-5.40); RED CELL DISTRIBUTION WIDTH 14.6 % (11.5-14.5); WHITE BLOOD COUNT 7.1 10^3/ul (4.8-10.8)
[2017-08-22 06:20] LABS: CALCIUM 8.6 mg/dl (8.4-10.2); CREATININE 0.62 mg/dl (0.44-1.00); POTASSIUM 3.1 mmol/L (3.5-5.1)
[2017-08-22] MEDS: ANASTROZOLE 1 MG TAB PO SCH ×2 (08:31→18:30)
[2017-08-22] MEDS: morphine (ER) 15 MG TAB PO SCH ×2 (08:31→20:36)
[2017-08-22] MEDS: ENOXAPARIN 40 MG/0.4 ML SYG SC SCH (08:32)
[2017-08-22] MEDS: FUROSEMIDE 40 MG INJ IV SCH (09:11)
[2017-08-22] MEDS ORDERED: POTASSIUM CHLORIDE (SR) 20 MEQ TAB PO STA (09:23)
[2017-08-22] MEDS ORDERED: D5-NS + KCL 40 MEQ 1,000 ML IV SCH (09:30)
--- NOTE | 2017-08-22 09:42 | PN ---
Date/Time of Note Date/Time of Note DATE: 08/22/17 TIME: 09:33 Assessment/Plan VTE Prophylaxis VTE Prophylaxis Intervention: LMWH Lines/Catheters [facility] PICC Line Central line still needed: Yes (For chemotherapy and IV access) Urinary Cath still in place: No Assessment/Plan Assessment/Plan 71-year-old female with: 1. 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 Patient currently on chemotherapy, last chemotherapy was this past Thursday 08/16 S/p right thoracentesis with removal of 1 L pleural fluid on 08/20 Continue Arimidex According to the daughter, the patient is due for chemotherapy today, EGD is scheduled for today, I will discuss with Dr. Blanchard if she wants to give the chemotherapy inpatient within the next 24 hours otherwise can be done as an outpatient. 2. Ongoing nausea and vomiting, according to the daughter just started after her dose of chemotherapy on 08/16, she did have similar complaints after her first chemotherapy a few weeks ago, she was put on Ativan, Zofran, Compazine as needed as an outpatient. CAT scan of the abdomen and pelvis is negative. Patient going for EGD today. Appreciate gastroenterology recommendations. 3. Metastatic breast CA, on chemotherapy currently. Next one due this week, today. 4. Hypothyroidism, Continue home meds Prophylaxis: Lovenox for DVT prophylaxis and Protonix for GI prophylaxis Disposition: EGD today with Dr. Viera. Will discuss with Dr. Blanchard chemotherapy, patient's daughter asking if can be given inpatient. Subjective 24 Hr Interval Summary Free Text/Dictation Patient respiratory status is stable, she is on and off on room air or supplemental oxygen. Of note she has chronic hypoxemia secondary to malignant pleural effusions and on home oxygen 2-3 L nasal cannula. She is n.p.o. for EGD today. Daughter is requesting for patient to have her next chemotherapy dose inpatient , apparently she was due today. Will discuss with her oncologist, Dr. Blanchard Exam/Review of Systems Vital Signs Vitals Vital Signs Date Time Temp Pulse Resp B/P Pulse Ox O2 Delivery O2 Flow Rate FiO2 08/22/17 09:07 89 18 96 Nasal Cannula 2.0 08/22/17 07:32 98.3 121/59 Intake and Output 08/21/17 08/21/17 08/22/17 14:59 22:59 06:59 Intake Total 50 ml 50 ml 775 ml Balance 50 ml 50 ml 775 ml Exam Constitutional: alert, frail, oriented, other (Alopecia with ongoing chemotherapy) Respiratory: diminished breath sounds (At bases bilaterally), normal air movement Cardiovascular: nl pulses, regular rate and rhythm Gastrointestinal: non-tender, soft Musculoskeletal: nl extremities to inspection Extremities: normal pulses, other (No edema, clubbing or cyanosis) Neurological: STERILE TECHNICIAN II-XII intact, nl mental status, nl speech, other ( Generalized weakness) Results Result Diagram: 08/22/1751908/22/17519 Results 24 hrs Laboratory Tests Test 08/21/17 18:39 08/22/17 05:20 Prothrombin Time 13.8 Prothrombin Time Ratio 1.1 INR International Normalized Ratio 1.06 Activated Partial Thromboplast Time 37.8 H White Blood Count 7.1 Red Blood Count 3.85 L Hemoglobin 11.2 L Hematocrit 34.4 L Mean Corpuscular Volume 89.4 Mean Corpuscular Hemoglobin 29.1 Mean Corpuscular Hemoglobin Concent 32.6 Red Cell Distribution Width 14.6 H Platelet Count 163 # Mean Platelet Volume 10.6 H Neutrophils % 45.8 Lymphocytes % 31.3 Monocytes % 9.6 Eosinophils % 12.6 H Basophils % 0.7 Nucleated Red Blood Cells % 0.0 Neutrophils # 3.2 Lymphocytes # 2.2 Monocytes # 0.7 Eosinophils # 0.9 H Basophils # 0.1 Nucleated Red Blood Cells # 0.0 Sodium Level 139 Potassium Level 3.1 L Chloride Level 100 Carbon Dioxide Level 31 Anion Gap 11 Blood Urea Nitrogen 10 Creatinine 0.62 Glucose Level 130 Calcium Level 8.6 Imaging Free Text/Dictation PROCEDURE: CT Abdomen and Pelvis without contrast. CLINICAL INDICATION: History of left breast partial mastectomy. Pleural effusion. Vomiting. TECHNIQUE: CT scan of the abdomen and pelvis was performed on a multidetector slice CT scanner. No intravenous contrast material was utilized. 900 cc of Redicat oral contrast material was utilized. Sagittal and coronal reformatted images were obtained from the axial source images. Images were reviewed on a high-resolution PACS workstation. Exam CTDlvol = 5.4 mGy and DLP = 291 Gy-cm. One of the following 3 dose reduction techniques were used: Automated exposure control; adjustment of the mA and/or kV according to patient size; or use of iterative reconstruction technique. DICOM images are available. COMPARISON: CT chest 04/18/2017, CT abdomen and pelvis 07/29/2017. FINDINGS: There is no obstruction or ileus. The appendix is visualized. There is no evidence for appendicitis.. There is no evidence for diverticulitis. There is no free fluid. The liver is overall normal in size. The liver contour is mildly lobulated. 4.5 mm hypodense lesion right lobe liver, too small to characterize.. There is a punctate calcified gallstone within the gallbladder. The gallbladder is otherwise normal in appearance. There is no definite biliary ductal dilation. Pancreas is normal in appearance. The spleen is unremarkable.. There are no adrenal masses. The aorta is normal caliber. Atherosclerotic vascular calcifications are present. There is 6 mm hyperdense cyst in the midpole of the right kidney. Kidneys are otherwise normal in appearance without hydronephrosis, mass or calculus.. Ureters are of normal caliber and without evidence for an obstructing calculus. The urinary bladder is contracted.. Uterus unremarkable. The ovaries are not well characterized. Limited evaluation of the lung bases demonstrates moderate bilateral pleural effusions with associated atelectasis. Heart is enlarged. There are degenerative changes of the lumbar spine. IMPRESSION: 1. No bowel obstruction or ileus. 2. Redemonstrated cholelithiasis. No CT evidence for acute cholecystitis or biliary obstruction. 3. Mildly lobular liver contour consistent with chronic liver disease. Subcentimeter hypodense lesion in the right lobe liver too small to characterize. 4. No obstructive uropathy. Small hyperdense cyst in the right kidney. Contracted urinary bladder. 5. Redemonstrated bilateral pleural effusions with a. She did atelectasis and cardiomegaly. 6. Degenerative changes of the lumbar spine. RPTAT: HMVK .Jeff Carolina MD, MD Date Time Electronically viewed and signed by .Jeff Carolina MD, on 08/22/2017 02:12 Medications Medications Current Medications Ondansetron HCl (Zofran Inj) 4 mg Q4H PRN IV NAUSEA AND/OR VOMITING Last administered on 08/21/17 17:00; Admin Dose 4 MG; Start 08/19/17 at 21:32 Morphine Sulfate (morphine) 2 mg Q3H PRN IV pain Last administered on 11:32; Admin Dose 2 MG; Start 08/19/17 at 23:30 Acetaminophen/ Hydrocodone Bitart ([place] (5/325)) 1 tab Q4H PRN PO PAIN; Start 08/19/17 at 23:05 Anastrozole (Arimidex) 1 mg DAILY PO Last administered on 08/21/17 08:52; Admin Dose 1 MG; Start 08/20/17 at 09:00 Levothyroxine Sodium (Synthroid) 50 mcg DAILY@06 PO Last administered on 05:46; Admin Dose 50 MCG; Start 08/20/17 at 06:00 Furosemide (Lasix) 40 mg DAILY IV Last administered on 08/22/17 09:11; Admin Dose 40 MG; Start 08/20/17 at 09:00 Enoxaparin Sodium (Lovenox) 40 mg DAILY SC Last administered on 08/21/17 08: 53; Admin Dose 40 MG; Start 08/20/17 at 09:00 Pantoprazole (Protonix Tab) 40 mg DAILY@06 PO Last administered on 08/21/17 08:44; Admin Dose 40 MG; Start 08/21/17 at 08:30 Morphine Sulfate 15 mg 15 mg BID PO Last administered on 08/21/17 21:05; Admin Dose 15 MG; Start 08/21/17 at 09:00 Potassium Chloride/Dextrose/ Sod Cl (D5-NS + KCl 40 Meq) 1,000 ml @ 75 mls/hr [id number] IV ; Start 08/22/17 at 09:30 SHANNAN FERRER Aug 22, 2017 09:42
[2017-08-22] MEDS: NACL IV SCH (12:33)
[2017-08-22] MEDS: DEXTROSE IV SCH (12:33)
[2017-08-22] MEDS: POTASSIUM CHLORIDE IV SCH (12:33)
[2017-08-22] MEDS ORDERED: PROPOFOL 20 ML ONE (16:52)
[2017-08-22] MEDS ORDERED: LIDOCAINE 2% (SDV) 5 ML INJ ONE (16:52)
--- NOTE | 2017-08-22 17:08 | OPPN ---
Date/Time of Note Date/Time of Note DATE: 08/22/17 TIME: 17:05 Proc Note GI Procedure Date 08/22/17 Indication: diagnostic Pre-procedure Diagnosis vomitting abd pain Post-procedure Diagnosis diffuse moderate gastritis mild gerd Procedure Performed: Endoscopy Surgeon see signature line Hotel Staff Member none Anesthesia Type: MAC Tourniquet Time none EBL none Transfusion required none Biopsy 1: gastric biopsy Grafts/Implants none Tubes/Drains none Complication(s) none Disposition: PACU Procedure Description egd done diffuse gastritis noted bx done for h BRENT Hicks MD Aug 22, 2017 17:08
--- NOTE | 2017-08-22 19:09 | GILP ---
DATE OF PROCEDURE: PROCEDURE: Esophagogastroduodenoscopy. PREOPERATIVE DIAGNOSIS: The patient presenting with a history of persistent abdominal pain and vomi ting. The patient has a history of metastatic breast cancer. Rule out gastric outlet obstruction, peptic ulcer disease, esophagitis. POSTOPERATIVE DIAGNOSES: 1. Mild reflux esophagitis. 2. Diffuse moderate degree of gastritis. Biopsy was done to rule out Helicobacter pylori infection . DESCRIPTION OF PROCEDURE: After informed written consent was obtained, the patient was asked to lie on the left lateral side. Intravenous anesthesia was given by anesthesiologist, Dr. Carreon. Whe n the patient became somnolent, the Olympus video upper endoscope was introduced into the oropharynx , then into the esophagus. Esophagus appeared to show mild reflux esophagitis. Scope at this time was advanced into the stomach. Stomach showed evidence of severe to moderate degree of gastritis in the form of erythema and friability and bright red blotchy mucosal surface. Biopsy was done from t he antrum, the lesser curvature and the fundus to rule out H. pylori infection. Duodenum was examin ed up to the end of the third portion which appeared normal. Endoscope at this time was withdrawn a nd no additional abnormalities detected, and the procedure was terminated. PLAN: Recommend proton pump inhibitor therapy to be continued. Dictated By: BRENT MATUTE/ABIGAIL Conf#: [id number] DID#: [id number] CC: STELLA DONATO MD; SHANNAN FERRER MD;*EndCC*
[2017-08-23] MEDS: NACL IV SCH (00:34)
[2017-08-23] MEDS: POTASSIUM CHLORIDE IV SCH (00:34)
[2017-08-23] MEDS: DEXTROSE IV SCH (00:34)
[2017-08-23] MEDS: ALBUTEROL/IPRATROPIUM (NEB) 3 ML AMP HHN SCH ×5 (00:47→15:52)
[2017-08-23 01:53] VITALS: BP 95/54; RESP 17
[2017-08-23] MEDS: PANTOPRAZOLE (EC) 40 MG TAB PO SCH (05:28)
[2017-08-23] MEDS: LEVOTHYROXINE 50 MCG TAB PO SCH (05:28)
[2017-08-23 06:33] LABS: BASOPHIL # 0.1 10^3/ul (0.0-0.1); BASOPHILS % 0.9 % (0.0-2.0); EOSINOPHILS % 14.2 % (0.0-7.0); HEMATOCRIT 35.5 % (37.0-47.0); HEMOGLOBIN 11.4 g/dl (12.0-16.0); LYMPHOCYTES # 2.1 10^3/ul (0.8-2.9); LYMPHOCYTES % 31.5 % (15.0-51.0); MEAN CORPUSCULAR HEMOGLOBIN 28.9 pg (29.0-33.0); MEAN CORPUSCULAR HGB CONC 32.1 g/dl (32.0-37.0); MEAN CORPUSCULAR VOLUME 89.9 fl (82.0-101.0); MONOCYTE # 0.5 10^3/ul (0.3-0.9); PLATELET COUNT 171 10^3/UL (140-415); RED BLOOD COUNT 3.95 10^6/ul (4.20-5.40); RED CELL DISTRIBUTION WIDTH 14.6 % (11.5-14.5); WHITE BLOOD COUNT 6.8 10^3/ul (4.8-10.8)
[2017-08-23 06:50] LABS: MAGNESIUM 1.9 mg/dl (1.7-2.5)
[2017-08-23 06:59] LABS: CALCIUM 8.7 mg/dl (8.4-10.2); CREATININE 0.59 mg/dl (0.44-1.00); POTASSIUM 4.1 mmol/L (3.5-5.1)
[2017-08-23 07:31] VITALS: BP 111/54; RESP 18
--- NOTE | 2017-08-23 08:30 | CONS ---
Date/Time of Note Date/Time of Note DATE: 08/23/17 TIME: 08:28 Consultation Date/Type/Reason Admit Date/Time Aug 19, 2017 at 19:01 Date of Consultation: Aug 23, 2017 Type of Consultation: hematology and oncology Reason for Consultation metastatic breast cancer Referring Provider: SARITA JC Social History Alcohol Use: none Smoking Status: Never smoker Drug Use: none Exam/Review of Systems Vital Signs Vitals Vital Signs Date Time Temp Pulse Resp B/P Pulse Ox O2 Delivery O2 Flow Rate FiO2 08/23/17 08:13 68 18 98 Nasal Cannula 2.0 08/23/17 07:31 97.7 111/54 Intake and Output 08/22/17 08/22/17 08/23/17 15:00 23:00 07:00 Intake Total 450 ml 1610 ml Output Total 1 ml Balance 450 ml 1609 ml Results Result Diagram: 08/23/17 0536 08/23/17 0536 Results 24 hrs Laboratory Tests Test 08/23/17 05:36 White Blood Count 6.8 Red Blood Count 3.95 L Hemoglobin 11.4 L Hematocrit 35.5 L Mean Corpuscular Volume 89.9 Mean Corpuscular Hemoglobin 28.9 L Mean Corpuscular Hemoglobin Concent 32.1 Red Cell Distribution Width 14.6 H Platelet Count 171 Mean Platelet Volume 11.0 H Neutrophils % 45.0 Lymphocytes % 31.5 Monocytes % 8.0 Eosinophils % 14.2 H Basophils % 0.9 Nucleated Red Blood Cells % 0.0 Neutrophils # 3.0 Lymphocytes # 2.1 Monocytes # 0.5 Eosinophils # 1.0 H Basophils # 0.1 Nucleated Red Blood Cells # 0.0 Sodium Level 142 Potassium Level 4.1 Chloride Level 105 Carbon Dioxide Level 29 Anion Gap 12 Blood Urea Nitrogen 6 L Creatinine 0.59 Glucose Level 120 Calcium Level 8.7 Phosphorus Level 3.0 Magnesium Level 1.9 Medications Medications Current Medications Ondansetron HCl (Zofran Inj) 4 mg Q4H PRN IV NAUSEA AND/OR VOMITING Last administered on 08/21/17 17:00; Admin Dose 4 MG; Start 08/19/17 at 21:32 Morphine Sulfate (morphine) 2 mg Q3H PRN IV pain Last administered on 11:32; Admin Dose 2 MG; Start 08/19/17 at 23:30 Acetaminophen/ Hydrocodone Bitart ([place] (5/325)) 1 tab Q4H PRN PO PAIN; Start 08/19/17 at 23:05 Anastrozole (Arimidex) 1 mg DAILY PO Last administered on 08/22/17 18:30; Admin Dose 1 MG; Start 08/20/17 at 09:00 Levothyroxine Sodium (Synthroid) 50 mcg DAILY@06 PO Last administered on 05:28; Admin Dose 50 MCG; Start 08/20/17 at 06:00 Furosemide (Lasix) 40 mg DAILY IV Last administered on 08/22/17 09:11; Admin Dose 40 MG; Start 08/20/17 at 09:00 Enoxaparin Sodium (Lovenox) 40 mg DAILY SC Last administered on 08/21/17 08: 53; Admin Dose 40 MG; Start 08/20/17 at 09:00 Pantoprazole (Protonix Tab) 40 mg DAILY@06 PO Last administered on 08/23/17 05:28; Admin Dose 40 MG; Start 08/21/17 at 08:30 Morphine Sulfate 15 mg 15 mg BID PO Last administered on 08/22/17 20:36; Admin Dose 15 MG; Start 08/21/17 at 09:00 Potassium Chloride/Dextrose/ Sodium Chloride (KCl/D5-NS) 1,000 ml @ 75 mls/hr [id number] IV Last administered on 08/23/17 00:34; Admin Dose 75 MLS/HR; Start 08/22/17 at 11:00 SELMA FERNANDEZ MD Aug 23, 2017 08:30
[2017-08-23] MEDS: FUROSEMIDE 40 MG INJ IV SCH (08:44)
[2017-08-23] MEDS: morphine (ER) 15 MG TAB PO SCH (08:45)
[2017-08-23] MEDS: ANASTROZOLE 1 MG TAB PO SCH (08:50)
[2017-08-23] MEDS: ENOXAPARIN 40 MG/0.4 ML SYG SC SCH (08:50)
--- NOTE | 2017-08-23 10:10 | PN ---
Date/Time of Note Date/Time of Note DATE: 08/23/17 TIME: 09:41 Assessment/Plan VTE Prophylaxis VTE Prophylaxis Intervention: SCD's Lines/Catheters IV Catheter Type (from Nrsg): PICC Line Central line still needed: Yes (For IV access) Urinary Cath still in place: No Assessment/Plan Assessment/Plan 71-year-old female with: 1. 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 Patient currently on chemotherapy, last chemotherapy was this past Thursday 08/16, at this point next chemotherapy was scheduled for this coming Wednesday 08/29 S/p right thoracentesis with removal of 1 L pleural fluid on 08/20 Continue Arimidex I will proceed with the discharge the patient home today with plan follow-up with Dr. Blanchard as an outpatient next week for chemotherapy 2. Ongoing nausea and vomiting, according to the daughter just started after her dose of chemotherapy on 08/16, she did have similar complaints after her first chemotherapy a few weeks ago, she was put on Ativan, Zofran, Compazine as needed as an outpatient. CAT scan of the abdomen and pelvis is negative. EGD with findings of gastritis We will proceed was discharged home with previous anti-emetics ordered along with proton pump inhibitors Appreciate gastroenterology assistance. 3. Metastatic breast CA, on chemotherapy currently. Next one due next Wednesday 08/29 4. Hypothyroidism, Continue home meds Prophylaxis: Lovenox for DVT prophylaxis and Protonix for GI prophylaxis Disposition: DC home today with home health, anti-emetics, Marinol, proton pump inhibitors and follow-up with Dr. Blanchard next week for chemotherapy and also follow-up with primary care physician within 1 week. Subjective 24 Hr Interval Summary Free Text/Dictation Patient status post EGD overnight, she is found to have gastritis, will make sure she is on proton pump inhibitor. According to oncology plan is for chemotherapy next Monday, therefore patient will be discharged home today back on her antiemetic along with some Marinol to stimulate appetite with plan for outpatient chemotherapy to be done next week and hopefully her oncologist will be able to schedule for IV hydration at home patient does have PICC line and this can be done through home health. Her episodes of GI upset and nausea and vomiting likely related to chemotherapy. Exam/Review of Systems Vital Signs Vitals Vital Signs Date Time Temp Pulse Resp B/P Pulse Ox O2 Delivery O2 Flow Rate FiO2 08/23/17 08:13 68 18 98 Nasal Cannula 2.0 08/23/17 07:31 97.7 111/54 Intake and Output 08/22/17 08/22/17 08/23/17 15:00 23:00 07:00 Intake Total 450 ml 1610 ml Output Total 1 ml Balance 450 ml 1609 ml Exam Constitutional: alert, oriented, well developed Respiratory: diminished breath sounds (Decreased breath sounds right base), normal air movement Cardiovascular: nl pulses, regular rate and rhythm Gastrointestinal: non-tender, soft Musculoskeletal: nl extremities to inspection, nl gait and stance Extremities: normal pulses Neurological: HIMS CLERK II-XII intact, nl mental status, nl speech, nl strength Results Result Diagram: 08/23/1736 08/23/17 0536 Results 24 hrs Laboratory Tests Test 08/23/17 05:36 White Blood Count 6.8 Red Blood Count 3.95 L Hemoglobin 11.4 L Hematocrit 35.5 L Mean Corpuscular Volume 89.9 Mean Corpuscular Hemoglobin 28.9 L Mean Corpuscular Hemoglobin Concent 32.1 Red Cell Distribution Width 14.6 H Platelet Count 171 Mean Platelet Volume 11.0 H Neutrophils % 45.0 Lymphocytes % 31.5 Monocytes % 8.0 Eosinophils % 14.2 H Basophils % 0.9 Nucleated Red Blood Cells % 0.0 Neutrophils # 3.0 Lymphocytes # 2.1 Monocytes # 0.5 Eosinophils # 1.0 H Basophils # 0.1 Nucleated Red Blood Cells # 0.0 Sodium Level 142 Potassium Level 4.1 Chloride Level 105 Carbon Dioxide Level 29 Anion Gap 12 Blood Urea Nitrogen 6 L Creatinine 0.59 Glucose Level 120 Calcium Level 8.7 Phosphorus Level 3.0 Magnesium Level 1.9 Medications Medications Current Medications Ondansetron HCl (Zofran Inj) 4 mg Q4H PRN IV NAUSEA AND/OR VOMITING Last administered on 08/21/17 17:00; Admin Dose 4 MG; Start 08/19/17 at 21:32 Morphine Sulfate (morphine) 2 mg Q3H PRN IV pain Last administered on 11:32; Admin Dose 2 MG; Start 08/19/17 at 23:30 Acetaminophen/ Hydrocodone Bitart ([place] (5/325)) 1 tab Q4H PRN PO PAIN; Start 08/19/17 at 23:05 Anastrozole (Arimidex) 1 mg DAILY PO Last administered on 08/23/17 08:50; Admin Dose 1 MG; Start 08/20/17 at 09:00 Levothyroxine Sodium (Synthroid) 50 mcg DAILY@06 PO Last administered on 05:28; Admin Dose 50 MCG; Start 08/20/17 at 06:00 Furosemide (Lasix) 40 mg DAILY IV Last administered on 08/23/17 08:44; Admin Dose 40 MG; Start 08/20/17 at 09:00 Enoxaparin Sodium (Lovenox) 40 mg DAILY SC Last administered on 08/23/17 08: 50; Admin Dose 40 MG; Start 08/20/17 at 09:00 Pantoprazole (Protonix Tab) 40 mg DAILY@06 PO Last administered on 08/23/17 05:28; Admin Dose 40 MG; Start 08/21/17 at 08:30 Morphine Sulfate 15 mg 15 mg BID PO Last administered on 08/23/17 08:45; Admin Dose 15 MG; Start 08/21/17 at 09:00 Potassium Chloride/Dextrose/ Sodium Chloride (KCl/D5-NS) 1,000 ml @ 75 mls/hr [id number] IV Last administered on 08/23/17 00:34; Admin Dose 75 MLS/HR; Start 08/22/17 at 11:00 Procedures Procedures DATE OF PROCEDURE: PROCEDURE: Esophagogastroduodenoscopy. PREOPERATIVE DIAGNOSIS: The patient presenting with a history of persistent abdominal pain and vomiting. The patient has a history of metastatic breast cancer. Rule out gastric outlet obstruction, peptic ulcer disease, esophagitis. POSTOPERATIVE DIAGNOSES: 1. Mild reflux esophagitis. 2. Diffuse moderate degree of gastritis. Biopsy was done to rule out Helicobacter pylori infection. DESCRIPTION OF PROCEDURE: After informed written consent was obtained, the patient was asked to lie on the left lateral side. Intravenous anesthesia was given by anesthesiologist, Dr. Carreon. When the patient became somnolent, the Olympus video upper endoscope was introduced into the oropharynx, then into the esophagus. Esophagus appeared to show mild reflux esophagitis. Scope at this time was advanced into the stomach. Stomach showed evidence of severe to moderate degree of gastritis in the form of erythema and friability and bright red blotchy mucosal surface. Biopsy was done from the antrum, the lesser curvature and the fundus to rule out H. pylori infection. Duodenum was examined up to the end of the third portion which appeared normal. Endoscope at this time was withdrawn and no additional abnormalities detected, and the procedure was terminated. PLAN: Recommend proton pump inhibitor therapy to be continued. Dictated By: SHANNAN MOLINA MD Aug 23, 2017 09:51
--- NOTE | 2017-08-23 10:11 | PDOCDIS ---
Discharge Instructions CONDITION Patient Condition: Stable HOME CARE INSTRUCTIONS: Special Diet: full liquid to soft diet ACTIVITY: Activity Restrictions: Slowly Increase Activity FOLLOW UP/APPOINTMENTS Follow-up Plan Home health RN check Resume home O2 Follow-up with Dr. Blanchard next week for chemotherapy Follow-up with primary care physician within 1 week SHANNAN FERRER Aug 23, 2017 10:11
[2017-08-23] MEDS ORDERED: MORP15TA3 PO (10:14)
[2017-08-23] MEDS ORDERED: HYDR-3498 PO (10:14)
[2017-08-23] MEDS ORDERED: PANT40TA4 PO (10:14)
[2017-08-23] MEDS ORDERED: ZOF8 PO (10:14)
[2017-08-23] MEDS ORDERED: PROC10TA10 PO (10:17)
[2017-08-23] MEDS ORDERED: LORA-441 PO (10:17)
[2017-08-23] MEDS ORDERED: DRON2.5C10 PO (10:17)
[2017-08-23 15:19] VITALS: BP 122/58; RESP 18
--- NOTE | 2017-08-23 17:26 | DS ---
Date/Time of Note Date/Time of Note DATE: 08/23/17 TIME: 17:19 Discharge Summary Admission/Discharge Info Admit Date/Time Aug 19, 2017 at 19:01 Discharge Date/Time Aug 23, 2017 at 16:55 Discharge Diagnosis 1. 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 2. Nausea and vomiting secondary to chemotherapy. 3. Gastritis 5. Metastatic breast CA, on chemotherapy currently. 6. Hypothyroidism. Patient Condition: Stable Consults Dr. Blanchard, oncology Dr. Lopez, gastroenterology Procedures Right thoracentesis EGD Hx of Present Illness Patient is a 71-year-old female with history of hypothyroidism and metastatic breast cancer with pleural metastasis and persistent malignant pleural effusions. Patient is now status post 2 rounds of chemotherapy and is scheduled to receive a third round the coming week. Patient presents once again with shortness of breath secondary to pleural effusions. Patient has no other acute complaints at this time. Hospital Course Patient was admitted to medical surgical bed, she had thoracentesis with removal of 1 L of pleural fluid. Her pleural effusions are secondary to malignant breast cancer and this would be the third time she is being admitted and has thoracentesis done this is over the period of month and a half. She had chemotherapy a few days prior to admission and was having ongoing nausea and vomiting. She was unable to tolerate p.o. GI was consulted, CAT scan of the abdomen and pelvis did not show any acute findings and she even had an EGD done. She was found to have gastritis. Likely her GI symptoms and intolerance is secondary to the chemotherapy. Post EGD she started finally tolerating some liquid diet, therefore after discussion with oncology the decision was made to delay the next round of chemotherapy until next week so that the patient will have a chance to recover and tolerate p.o. better. Her PICC line is left in place so that she can get IV hydration after her next chemo round hopefully this can be done at home. I have explained to the patient's daughter multiple times that unfortunately the patient will have to do with chronic hypoxemia secondary to recurrent pleural effusions, she will likely need additional thoracentesis and will keep feeling some dyspnea on exertion. The patient's daughter and the family is refusing to disclose how advance her breast cancer is to the patient. Patient has been discharged home on Ativan, Compazine, Zofran as needed for nausea vomiting. I have explained again to the daughter that it would not be safe to discharge her on diuretics/Lasix due to the fact that likely she will have recurrent GI upset and decreased p.o. intake and therefore at a risk for dehydration and prerenal azotemia. Her pleural effusions will not be resolved with diuretics, again they are malignant and likely to keep reoccurring. Home Meds Active Scripts Dronabinol* (Marinol*) 2.5 Mg Capsule, 2.5 MG PO TID, #90 CAP Prov:SHANNAN FERRER 08/23/17 Prochlorperazine* (Prochlorperazine*) 10 Mg Tablet, 10 MG PO Q6H Y for NAUSEA, # 60 TAB 3 Refills Prov:SHANNAN FERRER 08/23/17 Lorazepam* (Ativan*) 0.5 Mg Tablet, 0.5 MG PO BID Y for NAUSEA, #30 TAB Prov:SHANNAN FERRER 08/23/17 Ondansetron Hcl* (Zofran*) 8 Mg Tab, 8 MG PO Q6H Y for NAUSEA AND OR VOMITING, # 60 TAB 3 Refills Prov:SHANNAN FERRER 08/23/17 Pantoprazole* (Pantoprazole*) 40 Mg Tablet.dr, 40 MG PO DAILY for 30 Days, 3 Refills Prov:SHANNAN FERRER 08/23/17 Hydrocodone Bit-Acetaminophen (Hydrocodone Bit-APAP) 5-325MG Tablet, 1 TAB PO Q6 Y for PAIN, #60 TAB Prov:SHANNAN FERRER 08/23/17 Morphine Sulfate (Morphine Sulfate ER) 15 Mg Tablet.er, 15 MG PO BID for 30 Days , TAB Prov:SHANNAN FERRER 08/23/17 Reported Medications Anastrozole* (Arimidex*) 1 Mg Tablet, 1 MG PO DAILY, #30 TAB 08/10/17 Levothyroxine Sodium* (Levothyroxine Sodium*) 50 Mcg Tablet, 50 MCG PO BEFORE BREAKFAST, #30 TAB 07/13/17 Discontinued Reported Medications Benzonatate* (Benzonatate*) 100 Mg Capsule, 100 MG PO TID Y for COUGH, CAP 08/10/17 Discontinued Scripts Lorazepam* (Lorazepam*) 1 Mg Tablet, 0.5 MG PO Q12 Y for NAUSEA, #30 TAB Prov:SHANNAN FERRER 07/17/17 Ondansetron Hcl* (Zofran*) 8 Mg Tablet, 8 MG PO Q6H Y for NAUSEA AND OR VOMITING , #60 TAB Prov:SHANNAN FERRER 07/17/17 Hydrocodone/Acetaminophen ([place] 10-325 Tablet) 1 Each Tablet, 1 EACH PO Q8 Y for PAIN, #60 TAB Prov:SHANNAN FERRER 07/17/17 Follow-up Plan Home health RN check Resume home O2 Follow-up with Dr. Blanchard next week for chemotherapy Follow-up with primary care physician within 1 week Primary Care Provider Derrick Aquino MD Time spent on discharge: > 30 minutes Pending Labs Laboratory Tests Test 08/23/17 05:36 White Blood Count 6.810^3/ul (4.8-10.8) Red Blood Count 3.9510^6/ul (4.20-5.40) Hemoglobin 11.4g/dl (12.0-16.0) Hematocrit 35.5% (37.0-47.0) Mean Corpuscular Volume 89.9fl (82.0-101.0) Mean Corpuscular Hemoglobin 28.9pg (29.0-33.0) Mean Corpuscular Hemoglobin Concent 32.1g/dl (32.0-37.0) Red Cell Distribution Width 14.6% (11.5-14.5) Platelet Count 88975^3/UL (140-415) Mean Platelet Volume 11.0fl (7.4-10.4) Neutrophils % 45.0% (39.0-77.0) Lymphocytes % 31.5% (15.0-51.0) Monocytes % 8.0% (0.0-11.0) Eosinophils % 14.2% (0.0-7.0) Basophils % 0.9% (0.0-2.0) Nucleated Red Blood Cells % 0.0/100WBC (0.0-0.0) Neutrophils # 3.010^3/ul (1.6-7.5) Lymphocytes # 2.110^3/ul (0.8-2.9) Monocytes # 0.510^3/ul (0.3-0.9) Eosinophils # 1.010^3/ul (0.0-0.5) Basophils # 0.110^3/ul (0.0-0.1) Nucleated Red Blood Cells # 0.010^3/ul (0.0-0.0) Sodium Level 142mmol/L (135-144) Potassium Level 4.1mmol/L (3.5-5.1) Chloride Level 105mmol/L (97-110) Carbon Dioxide Level 29mmol/L (21-31) Anion Gap 12 (8-16) Blood Urea Nitrogen 6mg/dl (7-20) Creatinine 0.59mg/dl (0.44-1.00) Glucose Level 120mg/dl (70-220) Calcium Level 8.7mg/dl (8.4-10.2) Phosphorus Level 3.0mg/dl (2.5-4.9) Magnesium Level 1.9mg/dl (1.7-2.5) SHANNAN FERRER Aug 23, 2017 17:26
--- NOTE | 2017-08-24 07:25 | PN ---
DATE: 08/23/2017 SUBJECTIVE: At this time the patient has no complaints. Upper endoscopy showed evidence of diffuse gastritis. She has history of vomiting. She has history of metastatic breast cancer. PHYSICAL EXAMINATION: GENERAL: She appears to be alert. She is not in distress. CARDIOVASCULAR: Normal heart sounds. RESPIRATORY: Normal breath sounds. ABDOMEN: Unremarkable. CLINICAL IMPRESSION: History of gastritis, vomiting is resolved. PLAN AT THIS TIME: Continue Protonix. Dictated By: BRENT MATUTE/NTS Conf#: [id number] DID#: [id number] CC: SHANNAN FERRER MD;*EndCC*
== END 2017-08-23 16:55 | disposition home health service (06) | DRG 180 ==
LOC: E/R 11:00 → TEL 19:01 → MS2 08-21 15:22
PROVIDERS: ADMIT Internal Medicine; ATTEND Internal Medicine
PROC: 0W993ZZ Drainage of Right Pleural Cavity, Percutaneous Approach (ICD-10-PCS; principal; 2017-08-20)
PROC: 0DB78ZX Excision of Stomach, Pylorus, Via Natural or Artificial Opening Endoscopic, Diagnostic (ICD-10-PCS; 2017-08-22)
DX: C78.2 Secondary malignant neoplasm of pleura (principal); J96.21 Acute and chronic respiratory failure with hypoxia; J91.0 Malignant pleural effusion; C50.912 Malignant neoplasm of unspecified site of left female breast; E03.9 Hypothyroidism, unspecified; K21.0 Gastro-esophageal reflux disease with esophagitis; K29.70 Gastritis, unspecified, without bleeding; I10 Essential (primary) hypertension; Z87.891 Personal history of nicotine dependence; R11.2 Nausea with vomiting, unspecified; T45.1X5A Adverse effect of antineoplastic and immunosuppressive drugs, initial encounter
CPT/HCPCS: 36415; 71010; 71275; 74176; 76942; 80048; 80053; 82550; 82553; 83735; 83880; 84100; 84484; 85025; 85610; 85730; 88305; 88312; 93005; 94640; 94664; 96374; 96375; J1940; J1170; J1650; J2270; J2405; J3480; J7042; Q9967

== ENCOUNTER 2017-08-30 18:13 | Observation (INO) | payer OTHER ==
[~2017-08-30] VITALS: Ht 162.6 cm; Wt 55.4 kg
[~2017-08-30 18:13] MED LIST changes: -BENZ-5 PO; +DRON2.5C10 PO; +HYDR-3498 PO; -HYDR-902 PO; +LORA-441 PO; -LORA1TAB PO; +MORP15TA3 PO; -ONDA8TAB9 PO; +PANT40TA4 PO; +PROC10TA10 PO; +ZOF8 PO
[2017-08-30 18:56] LABS: BASOPHILS % 0.1 % (0.0-2.0); HEMATOCRIT 35.7 % (37.0-47.0); HEMOGLOBIN 12.3 g/dl (12.0-16.0); LYMPHOCYTES # 0.8 10^3/ul (0.8-2.9); LYMPHOCYTES % 6.7 % (15.0-51.0); MEAN CORPUSCULAR HEMOGLOBIN 29.6 pg (29.0-33.0); MEAN CORPUSCULAR HGB CONC 34.5 g/dl (32.0-37.0); MEAN CORPUSCULAR VOLUME 85.8 fl (82.0-101.0); MEAN PLATELET VOLUME 10.3 fl (7.4-10.4); MONOCYTE # 0.2 10^3/ul (0.3-0.9); NEUTROPHIL # 10.7 10^3/ul (1.6-7.5); NEUTROPHILS % 90.9 % (39.0-77.0); PLATELET COUNT 215 10^3/UL (140-415); RED BLOOD COUNT 4.16 10^6/ul (4.20-5.40); RED CELL DISTRIBUTION WIDTH 13.9 % (11.5-14.5); WHITE BLOOD COUNT 11.8 10^3/ul (4.8-10.8)
[2017-08-30 19:08] LABS: INR 1.05; PROTIME 13.8 Sec (11.9-14.9); PT RATIO 1.1
[2017-08-30 19:09] LABS: PARTIAL THROMBOPLASTIN TIME 31.1 Sec (25.0-35.0)
[2017-08-30 19:21] LABS: ALANINE AMINOTRANSFERASE 30 IU/L (13-69); ALBUMIN 3.3 g/dl (3.3-4.9); ALBUMIN/GLOBULIN RATIO 0.78; ALKALINE PHOSPHATASE 91 IU/L (42-121); ANION GAP 10 (8-16); ASPARTATE AMINO TRANSFERASE 59 IU/L (15-46); BILIRUBIN,INDIRECT 0.7 mg/dl (0-1.1); BILIRUBIN,TOTAL 0.7 mg/dl (0.2-1.3); BLOOD UREA NITROGEN 10 mg/dl (7-20); CALCIUM 8.8 mg/dl (8.4-10.2); CARBON DIOXIDE 29 mmol/L (21-31); CHLORIDE 105 mmol/L (97-110); CREATININE 0.57 mg/dl (0.44-1.00); GLUCOSE 143 mg/dl (70-220); POTASSIUM 3.8 mmol/L (3.5-5.1); SODIUM 140 mmol/L (135-144); TOTAL PROTEIN 7.5 g/dl (6.1-8.1)
--- NOTE | 2017-08-30 19:30 | RADRPT ---
PROCEDURE: XR Chest. CLINICAL INDICATION: Shortness of breath. TECHNIQUE: Portable AP semi erect view of the chest was obtained. COMPARISON: 08/20/2017 FINDINGS: The cardiomediastinal silhouette is mildly enlarged . Interval increase in right greater than left compressive atelectasis as compared to the prior study. There has been enlargement of the right gre ater than left pleural effusions compared to prior study with worsening of pulmonary vascular conges tion. The distal tip of the right PICC is again noted projecting over the right atrium, not signific antly changed. The osseous structures are intact with no evidence for acute abnormality. Thoracic s pondylosis is again noted. Left axillary clips are again seen. Calcification is again visualized in the aorta RPTAT:HJJR IMPRESSION: 1. Radiographic worsening of congestive heart failure pattern compared to 08/20/2017. 2. Interval increase in right larger than left pleural effusions with associated compressive atelec tasis of the lung bases. 3. Distal tip of the right PICC remains in satisfactory radiographic position. Physician Veto Date Time Electronically viewed and signed by Physician Veto on 08/30/2017 19:30 /
[2017-08-30] MEDS ORDERED: HYDR-902 PO (19:34)
[2017-08-30 19:35] LABS: TROPONIN-I < 0.012 ng/ml (0.00-0.12)
[2017-08-30] MEDS ORDERED: DEXA4TAB PO (19:35)
[2017-08-30] MEDS ORDERED: morphine 4 MG/ML VIAL IV STA (19:40)
[2017-08-30] MEDS ORDERED: ACETAMINOPHEN 325 MG TAB PO PRN (21:30)
[2017-08-30] MEDS ORDERED: ONDANSETRON 4 MG INJ IV PRN (21:30)
--- NOTE | 2017-08-30 22:37 | ERD ---
ER Documentation Chief Complaint Chief Complaint sob for the past few days. mild cp. recent cough no fevers HPI 71-year-old female with a history of metastatic breast cancer presenting to the ER complaining of shortness of breath with exertion. The patient has had multiple visits within the past few weeks for similar symptoms and was found to have pleural effusions that required thoracentesis. She also complains of right flank pain that is aching, constant, nonradiating. She denies any associated chest pain, fever, chills. Her last chemotherapy was done yesterday. ROS All systems reviewed and are negative except as per history of present illness. Medications Home Meds Reported Medications Dexamethasone* (Dexamethasone*) 4 Mg Tablet, 4 MG PO BID, TAB 08/30/17 Hydrocodone/Acetaminophen ([place] 10-325 Tablet) 1 Each Tablet, 1 EACH PO Q4H, TAB 08/30/17 Anastrozole* (Arimidex*) 1 Mg Tablet, 1 MG PO DAILY, #30 TAB 08/10/17 Levothyroxine Sodium* (Levothyroxine Sodium*) 50 Mcg Tablet, 50 MCG PO BEFORE BREAKFAST, #30 TAB 07/13/17 Discontinued Scripts Dronabinol* (Marinol*) 2.5 Mg Capsule, 2.5 MG PO TID, #90 CAP Prov:Praveena FERRERMisaANILWALLY 08/23/17 Prochlorperazine* (Prochlorperazine*) 10 Mg Tablet, 10 MG PO Q6H Y for NAUSEA, # 60 TAB 3 Refills Prov:Praveena FERRERMisaANILWALLY 08/23/17 Lorazepam* (Ativan*) 0.5 Mg Tablet, 0.5 MG PO BID Y for NAUSEA, #30 TAB Prov:Praveena FERRERMisaANILWALLY 08/23/17 Ondansetron Hcl* (Zofran*) 8 Mg Tab, 8 MG PO Q6H Y for NAUSEA AND OR VOMITING, # 60 TAB 3 Refills Prov:Praveena FERRERMisaFRANCA 08/23/17 Pantoprazole* (Pantoprazole*) 40 Mg Tablet.dr, 40 MG PO DAILY for 30 Days, 3 Refills Prov:SHANNAN FERRER 08/23/17 Hydrocodone Bit-Acetaminophen (Hydrocodone Bit-APAP) 5-325MG Tablet, 1 TAB PO Q6 Y for PAIN, #60 TAB Prov:SHANNAN FERRER 08/23/17 Morphine Sulfate (Morphine Sulfate ER) 15 Mg Tablet.er, 15 MG PO BID for 30 Days , TAB Prov:SHANNAN FERRER 08/23/17 Allergies Allergies: Coded Allergies: No Known Drug Allergies (Verified Allergy, Unknown, 08/30/17) PMhx/Soc History of Surgery: Yes (LEFT BREAST PARTIAL MASTECTOMY) Anesthesia Reaction: No Hx Neurological Disorder: No Hx Respiratory Disorders: Yes (PLEURAL EFFUSION) Hx Cardiac Disorders: Yes (HTN) Hx Psychiatric Problems: No Hx Alcohol Use: No Hx Substance Use: No Hx Tobacco Use: Yes Smoking Status: Never smoker FmHx Family History: No coronary disease Physical Exam Vitals Vital Signs Date Time Temp Pulse Resp B/P Pulse Ox O2 Delivery O2 Flow Rate FiO2 08/30/17 22:02 98.5 75 22 128/73 96 Room Air 08/30/17 18:30 98.5 74 22 135/74 96 Room Air 08/30/17 18:21 98.5 80 22 135/75 94 Physical Exam Const: Chronically ill-appearing, no apparent distress Head: Atraumatic Eyes: Normal Conjunctiva ENT: Normal External Ears, Nose and Mouth. Neck: Full range of motion..~ No meningismus. No JVD Resp: Tachypneic, diminished breath sounds at the bases up to the mid lung bilaterally, otherwise clear Cardio: Regular rate and rhythm, no murmurs Abd: Soft, non tender, non distended. Normal bowel sounds Skin: Excoriations on chest, no other rashes Back: No midline or flank tenderness Ext: No cyanosis, or edema Neur: Awake and alert Psych: Normal Mood and Affect Result Diagram: 08/30/175 08/30/175 Results 24 hrs Laboratory Tests Test 08/30/17 18:45 White Blood Count 11.810^3/ul Red Blood Count 4.1610^6/ul Hemoglobin 12.3g/dl Hematocrit 35.7% Mean Corpuscular Volume 85.8fl Mean Corpuscular Hemoglobin 29.6pg Mean Corpuscular Hemoglobin Concent 34.5g/dl Red Cell Distribution Width 13.9% Platelet Count 30885^3/UL Mean Platelet Volume 10.3fl Neutrophils % 90.9% Lymphocytes % 6.7% Monocytes % 2.0% Eosinophils % 0.0% Basophils % 0.1% Nucleated Red Blood Cells % 0.0/100WBC Neutrophils # 10.710^3/ul Lymphocytes # 0.810^3/ul Monocytes # 0.210^3/ul Eosinophils # 0.010^3/ul Basophils # 0.010^3/ul Nucleated Red Blood Cells # 0.010^3/ul Prothrombin Time 13.8Sec Prothrombin Time Ratio 1.1 INR International Normalized Ratio 1.05 Activated Partial Thromboplast Time 31.1Sec Sodium Level 140mmol/L Potassium Level 3.8mmol/L Chloride Level 105mmol/L Carbon Dioxide Level 29mmol/L Anion Gap 10 Blood Urea Nitrogen 10mg/dl Creatinine 0.57mg/dl Glucose Level 143mg/dl Calcium Level 8.8mg/dl Total Bilirubin 0.7mg/dl Direct Bilirubin 0.00mg/dl Indirect Bilirubin 0.7mg/dl Aspartate Amino Transf (AST/SGOT) 59IU/L Alanine Aminotransferase (ALT/SGPT) 30IU/L Alkaline Phosphatase 91IU/L Troponin I < 0.012ng/ml Total Protein 7.5g/dl Albumin 3.3g/dl Globulin 4.20g/dl Albumin/Globulin Ratio 0.78 Current Medications Medications (Trade) Dose Ordered Sig/Feroz Route PRN Reason Start Time Stop Time Status Last Admin Dose Admin Morphine Sulfate (morphine) 4 mg ONCE STAT IV 08/30/17 19:40 08/30/17 19:41 DC 08/30/17 20:06 Ondansetron HCl (Zofran Inj) 4 mg BRIDGE ORDER PRN IV NAUSEA AND/OR VOMITING 08/30/17 21:30 08/31/17 21:29 Acetaminophen (Tylenol Tab) 650 mg ER BRIDGE PRN PO MILD PAIN/FEVER 08/30/17 21:30 08/31/17 21:29 Procedures/MDM EMERGENT LABS AND DIAGNOSTIC STUDIES: Lab Results above were reviewed and interpreted by me. CBC shows mild leukocytosis CMP unremarkable Troponin within normal limits 12-lead EKG was interpreted by Bernice Armstrong MD: Normal Sinus Rhythm with ventricular rate of 78 beats per minute Normal axis Normal intervals Nonspecific T-wave abnormality No acute ST or T wave changes suggestive of acute ischemia or STEMI. Radiology Results as interpreted by Radiology below were reviewed by Bettina Armstrong MD: Chest Xray: IMPRESSION: 1. Radiographic worsening of congestive heart failure pattern compared to 2016. 2. Interval increase in right larger than left pleural effusions with associated compressive atelectasis of the lung bases. 3. Distal tip of the right PICC remains in satisfactory radiographic position. Physician Veto Date Time Electronically viewed and signed by Physician Veto on 08/30/2017 19:30 Initial Nursing notes reviewed. Previous Medical Records requested via the Electronic Health Record. EMERGENCY DEPARTMENT COURSE / MEDICAL DECISION MAKING: Patient is presenting with progressive dyspnea, likely secondary to recurrent pleural effusion. Also on the differential is pneumonia, pneumothorax, pulmonary embolism. Chest x-ray was done and showed bilateral pleural effusions , right greater than left. Otherwise her labs were unremarkable. I have a low suspicion for pneumonia at this time. There are no signs of sepsis. I believe the patient will benefit from admission for thoracentesis and possible consultation for pleurodesis given her recurrent effusions. I spoke with Dr. Hall, the admitting physician, who agrees with the plan. He agreed to admit her to [facility]. Departure Diagnosis: Primary Impression: Shortness of breath Additional Impression: Recurrent pleural effusion on right Condition: REGLA Briscoe MD Aug 30, 2017 22:37
[2017-08-30 22:47] VITALS: TEMP 98.5
[2017-08-30 23:14] VITALS: BP 157/70; RESP 20
[2017-08-31] MEDS ORDERED: ACETAMINOPHEN 325 MG TAB PO PRN (01:00)
[2017-08-31] MEDS ORDERED: ONDANSETRON 4 MG INJ IV PRN (01:00)
--- NOTE | 2017-08-31 01:02 | QN ---
Documentation Comment H&P dict a/p 1. recurrent malignant pleural effusions, s/p thoracentesis x3 will discuss if pleurodesis is to be recommended vs pleural catheter in addition to chemotherapy RANDA HARPER MD Aug 31, 2017 01:02
[2017-08-31 01:31] VITALS: BP 155/74; RESP 20
[2017-08-31] MEDS: morphine 2 MG INJ IV PRN ×6 (01:36→20:00)
[2017-08-31] MEDS: LORAZEPAM 0.5 MG TAB PO PRN ×2 (02:07→21:28)
[2017-08-31] MEDS: D5W-0.45 NACL + KCL 40 MEQ 1,000 ML IV SCH ×2 (02:08→15:25)
--- NOTE | 2017-08-31 03:03 | HP ---
DATE OF ADMISSION: 08/30/2017 CHIEF COMPLAINT: Shortness of breath. HISTORY OF PRESENT ILLNESS. This patient presents to emergency room at [facility] with a 2 -day history of increasing shortness of breath, especially on exertion and concern that she has wors ening pleural effusion for which she has been evaluated and admitted several times in the last 6 wee and undergone thoracentesis for this. PAST MEDICAL HISTORY: Significant for breast cancer with lymphangitic spread, stage IV. MEDICATIONS: As an outpatient include: 1. Levothyroxine. 2. Letrozole. 3. [place]. 4. Decadron. ALLERGIES: NO KNOWN DRUG ALLERGIES. SOCIAL HISTORY: The patient lives at home in [place] with her daughter and granddaughter. She is independent of activities of daily living, though she does receive assistance with medications. FAMILY HISTORY: Noncontributory. REVIEW OF SYSTEMS: Five systems were reviewed and found not to be revealing. PHYSICAL EXAMINATION: VITAL SIGNS: Blood pressure is 157/70, pulse rate 81, respirations 20, temperature 97.9. GENERAL: Pleasant woman in no acute distress, alert and oriented x3. HEENT: Normocephalic and atraumatic without evident scleral icterus or perioral cyanosis. Mucous m embranes are moist. NECK: Soft and supple without masses. No evidence of jugular venous distention or carotid bruits. CHEST: Clear to auscultation and percussion bilaterally. HEART: Regular rate and rhythm, S1-S2, no added sounds. ABDOMEN: Soft, nontender, nondistended without palpable hepatosplenomegaly. EXTREMITIES: Without clubbing, cyanosis or edema. SKIN: Without rashes. NEUROLOGIC: Grossly intact. LABORATORY STUDIES: Reveal hemoglobin 12.3 g/dL, white count 11,800, platelets of 215,000. INR is 1.05. Sodium 140, potassium 3.8, chloride 105, bicarbonate 29, BUN 10, creatinine 0.6, glucose 143. Liver function tests remarkable only for an AST of 59. Chest x-ray does show a right-sided pleura l effusion occupying approximately third to half of the right hemithorax. ASSESSMENT AND PLAN: 1. Pulmonary: Recurrent pleural effusion causing dyspnea and shortness of breath requiring thorace ntesis approximately every 2 to 3 weeks. We will plan to consult for possible pleurodesis in additi on to ongoing chemotherapy in attempt to control this effusion. 2. Metastatic breast cancer. 3. Prophylaxis with sequential compression devices. Dictated By: RANDA HARPER MD RER/NTS Conf#: [id number] DID#: [id number]
[2017-08-31] MEDS: LEVOTHYROXINE 50 MCG TAB PO SCH (07:19)
[2017-08-31 07:50] VITALS: BP 147/70; RESP 18
[2017-08-31] MEDS: DEXAMETHASONE 4 MG TAB PO SCH ×2 (08:54→21:28)
[2017-08-31] MEDS: ANASTROZOLE 1 MG TAB PO SCH (09:06)
[2017-08-31] MEDS ORDERED: LIDOCAINE 1% (MPF) 5 ML VIAL ONE (14:49)
--- NOTE | 2017-08-31 14:55 | RADRPT ---
PROCEDURE: US guided right thoracentesis. CLINICAL INDICATION: Shortness of breath. Right pleural effusion. TECHNIQUE: Prior to the procedure, informed consent was obtained. The risks, benefits, and alternatives were e xplained to the patient or the patient's family, including but not limited to bleeding, infection, p ain, visceral or vascular damage, shock, pneumothorax, chest tube placement, air embolism, and . The patient or the patient's family understood the risks and the alternatives and wished to proce ed with the study. Informed written consent was obtained. A procedural pause was performed. The patient's name, date of , and procedure to be performed were verified. Ultrasound of the right hemithorax was performed in the axial and sagittal planes. A right pleural e ffusion is noted. Utilizing ultrasound guidance, optimal location for entry to the pleural cavity wa s ascertained. The overlying skin was prepped and draped in the usual sterile fashion. Approximate ly 10 ml of 1% Xylocaine was injected locally for pain control. Using ultrasound guidance, a 5-Fren ch Yueh catheter was introduced into the right pleural space without difficulty. Fluid was aspirated . COMPARISON: None. FINDINGS: Initial ultrasound demonstrates fluid in the right pleural space. Approximately 1.0 liters of sangu ineous fluid was aspirated and sent to the laboratory. IMPRESSION: 1. Satisfactory ultrasound-guided right thoracentesis. RPTAT: QQ .Darren Almeida MD, Date Time Electronically viewed and signed by .Darren Almeida MD, on 08/31/2017 14:55 .R/
--- NOTE | 2017-08-31 15:02 | RADRPT ---
PROCEDURE: XR Chest. CLINICAL INDICATION: Shortness of breath. Post right thoracentesis. TECHNIQUE: Single frontal view. COMPARISON: 08/30/2017. FINDINGS: Previously noted right pleural effusion is now much smaller. There is also small left pleural effusi on. The heart is enlarged. There is calcification in the aorta consistent with atherosclerosis. Surgical clips are present in the left axilla. There is mild pulmonary edema and mild atelectasis at the lung bases. There is no pneumothorax. IMPRESSION: 1. No pneumothorax following right thoracentesis. 2. Improved aeration of the right lung and smaller right pleural effusion. 3. No other change from the 08/30/2017 chest radiograph. RPTAT: QQ .Darren Almeida MD, MD Date Time Electronically viewed and signed by .Darren Almeida MD, MD on 08/31/2017 15:02 .R/
--- NOTE | 2017-08-31 15:32 | PN ---
Date/Time of Note Date/Time of Note DATE: 08/31/17 TIME: 14:31 Assessment/Plan VTE Prophylaxis VTE Prophylaxis Intervention: SCD's Lines/Catheters IV Catheter Type (from [facility]): PICC Line Central line still needed: Yes (For chemotherapy) Assessment/Plan Assessment/Plan 71-year-old female with: 1. 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 Patient currently on chemotherapy, last chemotherapy was this past Wednesday 08/29 , and next chemotherapy will be in 3 weeks. Patient getting right thoracentesis today and may need left thoracentesis tomorrow. I have discussed the case with the patient's daughter, Dr. Blanchard, Dr. Greene cardiothoracic surgeon and the plan is for the patient to have bilateral thoracentesis with subsequent elective pleurodesis versus Pleurx catheter placement hopefully in the next week or 2. According to the daughter, they need to have a discussion with the surgeon and also they have a family event this coming that the patient would like to attend therefore would rather not be in the hospital. They understand that if the pleurodesis is being done likely she will have to stay in the hospital through the weekend. Continue Arimidex and also patient was put on 3 days of Decadron postchemotherapy this past Monday. 2. Metastatic breast CA, on chemotherapy currently. Last was Wednesday 08/29 in the next one due in 3 weeks. 3. Hypothyroidism, Continue home meds Prophylaxis: SCDs for DVT prophylaxis and Protonix for GI prophylaxis Disposition: Will schedule for thoracentesis of left pleural effusion tomorrow if amenable, patient is status post thoracentesis of the right pleural effusion removal of 1 L. Discharge plan for home tomorrow hopefully with outpatient follow-up with cardiothoracic surgery within 1 week . Subjective 24 Hr Interval Summary Free Text/Dictation Discussed plan of care with the patient's primary oncologist, Dr. Blanchard and also with the patient's daughter. I explained to her what pleurodesis involves, she will have thoracentesis of the right pleural effusion today and probably left pleural effusion tomorrow morning, I have discussed the case with Dr. Greene from cardiothoracic surgery, patient will be referred to him and be seen in the office and from their decisions can be made regarding a Pleurx catheter versus VATS pleurodesis. Daughter is more inclined to go that route as they have plans for this coming Monday with family members flying in to [place] therefore they would rather have the patient discharged within the next 24 hours. Exam/Review of Systems Vital Signs Vitals Vital Signs Date Time Temp Pulse Resp B/P Pulse Ox O2 Delivery O2 Flow Rate FiO2 08/31/17 08:45 Nasal Cannula 3.0 08/31/17 07:50 97.1 72 18 147/70 97 Intake and Output 08/30/17 08/30/17 08/31/17 15:00 23:00 07:00 Intake Total 225 ml Balance 225 ml Exam Constitutional: alert, frail, oriented Respiratory: diminished breath sounds (Right lower lobe greater than left lower lobe), normal air movement Cardiovascular: nl pulses, regular rate and rhythm Gastrointestinal: non-tender, soft Musculoskeletal: nl extremities to inspection Extremities: normal pulses, other (No edema, clubbing or cyanosis) Neurological: BOX FABRICATOR II-XII intact, nl mental status, nl speech, other ( Generalized weakness) Results Result Diagram: 08/30/17184408/30/171844 Results 24 hrs Laboratory Tests Test 08/30/17 18:45 White Blood Count 11.8 #H Red Blood Count 4.16 L Hemoglobin 12.3 Hematocrit 35.7 L Mean Corpuscular Volume 85.8 Mean Corpuscular Hemoglobin 29.6 Mean Corpuscular Hemoglobin Concent 34.5 Red Cell Distribution Width 13.9 Platelet Count 215 # Mean Platelet Volume 10.3 Neutrophils % 90.9 H Lymphocytes % 6.7 L Monocytes % 2.0 Eosinophils % 0.0 Basophils % 0.1 Nucleated Red Blood Cells % 0.0 Neutrophils # 10.7 H Lymphocytes # 0.8 Monocytes # 0.2 L Eosinophils # 0.0 Basophils # 0.0 Nucleated Red Blood Cells # 0.0 Prothrombin Time 13.8 Prothrombin Time Ratio 1.1 INR International Normalized Ratio 1.05 Activated Partial Thromboplast Time 31.1 Sodium Level 140 Potassium Level 3.8 Chloride Level 105 Carbon Dioxide Level 29 Anion Gap 10 Blood Urea Nitrogen 10 Creatinine 0.57 Glucose Level 143 Calcium Level 8.8 Total Bilirubin 0.7 Direct Bilirubin 0.00 Indirect Bilirubin 0.7 Aspartate Amino Transf (AST/SGOT) 59 H Alanine Aminotransferase (ALT/SGPT) 30 Alkaline Phosphatase 91 Troponin I < 0.012 Total Protein 7.5 Albumin 3.3 Globulin 4.20 H Albumin/Globulin Ratio 0.78 Medications Medications Current Medications Acetaminophen (Tylenol Tab) 650 mg Q4H PRN PO PAIN AND OR ELEVATED TEMP; Start 08/31/17 at 01:00 Ondansetron HCl (Zofran Inj) 4 mg Q4H PRN IV NAUSEA AND/OR VOMITING; Start 08/31/17 at 01:00 Morphine Sulfate 2 mg 2 mg Q2H PRN IV pain Last administered on 08/31/17 11:59 ; Admin Dose 2 MG; Start 08/31/17 at 01:00 Potassium Chloride/Dextrose/ Sod Cl (D5-1/2ns + KCl 40 Meq) 1,000 ml @ 75 mls/ hr [id number] IV Last administered on 08/31/17 02:08; Admin Dose 75 MLS/HR; Start 08/31/17 at 01:00 Anastrozole (Arimidex) 1 mg DAILY PO Last administered on 08/31/17 09:06; Admin Dose 1 MG; Start 08/31/17 at 09:00 Dexamethasone (Decadron) 4 mg BID PO Last administered on 08/31/17 08:54; Admin Dose 4 MG; Start 08/31/17 at 09:00 Lorazepam (Ativan) 0.5 mg Q12H PRN PO ANXIETY Last administered on 08/31/17 02 :07; Admin Dose 0.5 MG; Start 08/31/17 at 02:00 SHANNAN FERRER Aug 31, 2017 14:41
[2017-08-31 19:45] VITALS: BP 164/83; RESP 18
[2017-08-31 21:30] VITALS: BP 145/73; PULSE 75; RESP 17
[2017-09-01] MEDS: morphine 2 MG INJ IV PRN ×5 (00:15→19:03)
[2017-09-01 02:00] VITALS: BP 145/65; RESP 18
[2017-09-01 06:15] LABS: BASOPHILS % 0.1 % (0.0-2.0); HEMATOCRIT 32.7 % (37.0-47.0); HEMOGLOBIN 10.7 g/dl (12.0-16.0); LYMPHOCYTES # 0.6 10^3/ul (0.8-2.9); LYMPHOCYTES % 5.8 % (15.0-51.0); MEAN CORPUSCULAR HEMOGLOBIN 28.5 pg (29.0-33.0); MEAN CORPUSCULAR HGB CONC 32.7 g/dl (32.0-37.0); MEAN CORPUSCULAR VOLUME 87.2 fl (82.0-101.0); MEAN PLATELET VOLUME 11.3 fl (7.4-10.4); MONOCYTES % 0.3 % (0.0-11.0); NEUTROPHIL # 10.4 10^3/ul (1.6-7.5); NEUTROPHILS % 93.2 % (39.0-77.0); PLATELET COUNT 178 10^3/UL (140-415); RED BLOOD COUNT 3.75 10^6/ul (4.20-5.40); RED CELL DISTRIBUTION WIDTH 14.3 % (11.5-14.5); WHITE BLOOD COUNT 11.1 10^3/ul (4.8-10.8)
[2017-09-01 07:02] LABS: MAGNESIUM 2.3 mg/dl (1.7-2.5); PHOSPHORUS 2.5 mg/dl (2.5-4.9)
[2017-09-01 07:13] LABS: CALCIUM 8.4 mg/dl (8.4-10.2); CREATININE 0.45 mg/dl (0.44-1.00); POTASSIUM 4.4 mmol/L (3.5-5.1)
[2017-09-01] MEDS: LEVOTHYROXINE 50 MCG TAB PO SCH (08:15)
[2017-09-01] MEDS: DEXAMETHASONE 4 MG TAB PO SCH (08:16)
[2017-09-01] MEDS: ANASTROZOLE 1 MG TAB PO SCH (08:21)
[2017-09-01 08:23] VITALS: BP 147/64; RESP 19
--- NOTE | 2017-09-01 10:47 | PN ---
Date/Time of Note Date/Time of Note DATE: 09/01/17 TIME: 10:47 Assessment/Plan VTE Prophylaxis VTE Prophylaxis Intervention: SCD's Lines/Catheters IV Catheter Type (from Nrs): PICC Line Central line still needed: Yes (For IV access and chemotherapy) Assessment/Plan Assessment/Plan 71-year-old female with: 1. 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 Patient currently on chemotherapy, last chemotherapy was this past Wednesday 08/29 , and next chemotherapy will be in 3 weeks. S/p right thoracentesis yesterday with removal of 1 L and plans for left thoracentesis today. I have discussed the case with the patient's daughter, Dr. Blanchard, Dr. Greene cardiothoracic surgeon and the plan is for the patient to have bilateral thoracentesis with subsequent elective pleurodesis versus Pleurx catheter placement hopefully in the next week or 2. According to the daughter, they need to have a discussion with the surgeon and also they have a family event this coming that the patient would like to attend therefore would rather not be in the hospital. They understand that if the pleurodesis is being done likely she will have to stay in the hospital through the weekend. Continue Arimidex and also patient was put on 3 days of Decadron postchemotherapy this past Monday. 2. Metastatic breast CA, on chemotherapy currently. Last was Wednesday 08/29 in the next one due in 3 weeks. 3. Hypothyroidism, Continue home meds Prophylaxis: SCDs for DVT prophylaxis and Protonix for GI prophylaxis Disposition: Awaiting left thoracentesis, at this point the daughter is delaying the procedure as we were waiting for her but she is aware that the plan is to discharge the patient today after her thoracentesis is done, Discharge plan for home today with outpatient follow-up with cardiothoracic surgery within 1 week . Subjective 24 Hr Interval Summary Free Text/Dictation Patient feels better today, she status post right thoracentesis with removal of 1 L of serosanguineous pleural fluid likely malignant, she is supposed to get a left thoracentesis today and we are waiting for the daughter to be that here. Plan is to discharge later this afternoon or evening after the thoracentesis is done. Exam/Review of Systems Vital Signs Vitals Vital Signs Date Time Temp Pulse Resp B/P Pulse Ox O2 Delivery O2 Flow Rate FiO2 09/01/17 08:45 Nasal Cannula 3.0 09/01/17 08:23 98.2 61 19 147/64 97 Intake and Output 08/31/17 08/31/17 09/01/17 14:59 22:59 06:59 Intake Total 1355 ml Output Total 200 ml Balance 1155 ml Exam Constitutional: alert, frail, oriented, other (Much more comfortable) Respiratory: diminished breath sounds (At bases bilaterally), normal air movement Cardiovascular: nl pulses, regular rate and rhythm Gastrointestinal: non-tender, soft Musculoskeletal: nl extremities to inspection, nl gait and stance Extremities: normal pulses Neurological: COMMUNICATION EQUIPMENT REPAIRER II-XII intact, nl mental status, nl speech, other ( Generalized weakness) Results Result Diagram: 09/01/1744109/01/17441 Results 24 hrs Laboratory Tests Test 09/01/17 04:42 White Blood Count 11.1 H Red Blood Count 3.75 L Hemoglobin 10.7 L Hematocrit 32.7 L Mean Corpuscular Volume 87.2 Mean Corpuscular Hemoglobin 28.5 L Mean Corpuscular Hemoglobin Concent 32.7 Red Cell Distribution Width 14.3 Platelet Count 178 Mean Platelet Volume 11.3 H Neutrophils % 93.2 H Lymphocytes % 5.8 L Monocytes % 0.3 Eosinophils % 0.0 Basophils % 0.1 Nucleated Red Blood Cells % 0.0 Neutrophils # 10.4 H Lymphocytes # 0.6 L Monocytes # 0.0 L Eosinophils # 0.0 Basophils # 0.0 Nucleated Red Blood Cells # 0.0 Sodium Level 140 Potassium Level 4.4 Chloride Level 105 Carbon Dioxide Level 30 Anion Gap 9 Blood Urea Nitrogen 15 Creatinine 0.45 Glucose Level 154 Calcium Level 8.4 Phosphorus Level 2.5 Magnesium Level 2.3 Medications Medications Current Medications Acetaminophen (Tylenol Tab) 650 mg Q4H PRN PO PAIN AND OR ELEVATED TEMP; Start 08/31/17 at 01:00 Ondansetron HCl (Zofran Inj) 4 mg Q4H PRN IV NAUSEA AND/OR VOMITING; Start 08/31/17 at 01:00 Morphine Sulfate (morphine) 2 mg Q2H PRN IV pain Last administered on t 08:15; Admin Dose 2 MG; Start 12/7/17 at 01:00 Anastrozole (Arimidex) 1 mg DAILY PO Last administered on 09/01/17 08:21; Admin Dose 1 MG; Start 08/31/17 at 09:00 Dexamethasone (Decadron) 4 mg BID PO Last administered on 09/01/17 08:16; Admin Dose 4 MG; Start 08/31/17 at 09:00 Lorazepam (Ativan) 0.5 mg Q12H PRN PO ANXIETY Last administered on 08/31/17 21 :28; Admin Dose 0.5 MG; Start 08/31/17 at 02:00 SHANNAN FERRER Sep 01, 2017 10:47
--- NOTE | 2017-09-01 11:26 | PDOCDIS ---
Discharge Instructions CONDITION Patient Condition: Stable HOME CARE INSTRUCTIONS: Diet Instructions: Regular ACTIVITY: Activity Restrictions: Slowly Increase Activity FOLLOW UP/APPOINTMENTS Follow-up Plan Follow-up with Dr. Blanchard as an outpatient within 1 week, appointment set for 08/11 at 10 am. Follow-up/referral to cardiothoracic surgery, Dr. Greene, scheduled appointment for Aug at 3 30 pm at his office @ [id number] [address] Re: discussion and options for malignant recurrent pleural effusion, pleurodesis versus Pleurx catheter Home health RN Resume home oxygen SHANNAN FERRER Sep 01, 2017 11:26
[2017-09-01] MEDS ORDERED: LIDOCAINE 1% (MPF) 5 ML VIAL ONE (15:15)
--- NOTE | 2017-09-01 15:44 | RADRPT ---
PROCEDURE: US guided left thoracentesis. CLINICAL INDICATION: Shortness of breath. Left pleural effusion. TECHNIQUE: Prior to the procedure, informed consent was obtained. The risks, benefits, and alternatives were e xplained to the patient or the patient's family, including but not limited to bleeding, infection, p ain, visceral or vascular damage, shock, pneumothorax, chest tube placement, air embolism, and . The patient or the patient's family understood the risks and the alternatives and wished to proce ed with the study. Informed written consent was obtained. A procedural pause was performed. The patient's name, date of , and procedure to be performed were verified. Ultrasound of the left hemithorax was performed in the axial and sagittal planes. A left pleural eff usion is noted. Utilizing ultrasound guidance, optimal location for entry to the pleural cavity was ascertained. The overlying skin was prepped and draped in the usual sterile fashion. Approximately 10 ml of 1% Xylocaine was injected locally for pain control. Using ultrasound guidance, a 5-Italian Yueh catheter was introduced into the left pleural space without difficulty. Fluid was aspirated. COMPARISON: None. FINDINGS: Initial ultrasound demonstrates fluid in the left pleural space. Approximately 0.500 liters of sero us fluid was aspirated and discarded. IMPRESSION: 1. Satisfactory ultrasound-guided left thoracentesis. RPTAT: QQ .Darren Almeida MD, Date Time Electronically viewed and signed by .Darren Almeida MD, on 09/01/2017 15:44 .R/
--- NOTE | 2017-09-01 15:56 | RADRPT ---
PROCEDURE: XR portable chest CLINICAL INDICATION: Malignant pleural effusion. Status post left thoracentesis. TECHNIQUE: Portable semi upright chest radiograph COMPARISON: Portable semi upright chest radiograph 08/31/2017 FINDINGS: No evidence of pneumothorax. Decrease in size of left pleural effusion such that a small left pleural effusion is seen on this st udy. Improved aeration in the left lower lobe. Slight increase in size of right pleural effusion and right lower lobe atelectasis/consolidation. In crease in pulmonary vascular congestion. Indistinctness of pulmonary vessels suggests interstitial e anyi. Bilateral lung subsegmental atelectasis versus scar. Tip of the right PICC line projects in the mid - lower right atrium. No other significant interval changes seen. IMPRESSION: 1. No evidence of pneumothorax 2. Decrease in size of left pleural effusion. Slight increase in size of right pleural effusion. 3. Left lower lobe improved aeration. Interstitial edema. Increase in pulmonary vascular congestion. RPTAT: TT Physician Werner Date Time Electronically viewed and signed by Physician Werner on 09/01/2017 15:56 CE/
[2017-09-01] MEDS: LORAZEPAM 0.5 MG TAB PO PRN (16:10)
[2017-09-01] MEDS ORDERED: FUROSEMIDE 20 MG INJ IV ONE (16:30)
== END 2017-09-01 20:50 | disposition home health service (06) ==
LOC: E/R 18:13 → MS1 21:04
PROVIDERS: ADMIT Legal Medicine; ATTEND Legal Medicine
DX: C50.912 Malignant neoplasm of unspecified site of left female breast (principal); J91.0 Malignant pleural effusion; E03.9 Hypothyroidism, unspecified
CPT/HCPCS: 32555; 36415; 71010; 76942; 80048; 80053; 83735; 84100; 84484; 85025; 85610; 85730; 87081; 93005; 96374; 99285; G0378; J1940; J2270; J3480

== ENCOUNTER 2017-09-13 07:56 | Inpatient (IN) | END 2017-09-21 20:02 | disposition home health service (06) | DRG 166 ==

== ENCOUNTER 2018-03-05 01:45 | Observation (INO) | END 2018-03-07 16:25 | disposition home health service (06) ==

== ENCOUNTER 2018-03-29 16:49 | Inpatient (IN) | END 2018-04-04 20:18 | disposition home health service (06) | DRG 194 ==

== ENCOUNTER 2018-04-18 08:44 | Inpatient (IN) | END 2018-04-20 08:00 | disposition EXP | DRG 193 ==